=== PATIENT | female | born 1960 | race Caucasian/White ===

== ENCOUNTER → 2016-12-09 | Outpatient (CLI) | payer BC ==
[~2016-12-09] MED LIST: /PANT40TA OR; /PANT40TA PO; CIPR500T89 PO; DOXE100C OR; DRIS1CAP PO; FERR324T5 OR; FOLI1TAB OR; IBUP600T OR; KLON1TAB OR; NEUR100C OR; SIMV20TA2 OR; TUMS500C OR; TYLENOL #3 OR; ULTR50TA PO; VITAMIN D50000 UNT OR; ZOLO50TA OR; [UNRECOGNIZED DRUG - CODE] PO; [UNRECOGNIZED DRUG - OTHER] PO; ascorbic acid OR; klonopin PO; motrin PO; neurontin PO; trazadone PO
[2016-12-09 10:02] LABS: CREATININE FOR GFR 1.01 MG/DL (0.55-1.02); GLOMERULAR FILTRATION RATE 59.9 (>51); POTASSIUM SERUM 4.5 MEQ/L (3.5-5.1)
[2016-12-09 10:03] LABS: ALBUMIN/GLOBULIN RATIO 1.21 (1.00-1.93); BILIRUBIN,TOTAL 0.2 MG/DL (0.2-1.0); CALCIUM LEVEL 9.2 MG/DL (8.5-10.1); MAGNESIUM LEVEL 2.4 MG/DL (1.8-2.4); TOTAL PROTEIN 7.3 GM/DL (6.4-8.2)
== END ==
LOC: M WUC 08:02
PROVIDERS: ATTEND Nurse Practitioner Family
DX: E78.2 Mixed hyperlipidemia (principal); K21.9 Gastro-esophageal reflux disease without esophagitis; E55.9 Vitamin D deficiency, unspecified

== ENCOUNTER → 2016-12-23 | Outpatient (REF) | payer BC ==
[2016-12-23 17:30] LABS: FOLATE 7.7 NG/ML
[2016-12-23 17:34] LABS: CALCIUM LEVEL 9.2 MG/DL (8.5-10.1); CREATININE FOR GFR 1.09 MG/DL (0.55-1.02); FREE T4 1.15 NG/DL (0.76-1.46); GLOMERULAR FILTRATION RATE 54.9 (>51); POTASSIUM SERUM 4.1 MEQ/L (3.5-5.1)
[2016-12-23 18:07] LABS: BASO % 0.5 % (0.0-1.0); EOS # 0.1 K/mm3 (0.0-0.50); EOS % 1.3 % (0.0-3.0); LARGE UNSTAINED CELL # 0.2 K/mm3 (0.0-0.4); LYMPH # 2.3 K/mm3 (1.5-4.5); LYMPH % 29.5 % (24.0-44.0); MEAN CORPUSCULAR HEMOGLOBIN 30.1 pg (27.0-33.0); MEAN CORPUSCULAR HGB CONC 31.9 g/dl (32.0-36.5); MEAN CORPUSCULAR VOLUME 94.2 fl (80.0-96.0); MONO # 0.4 K/mm3 (0.0-0.8); MONO % 5.3 % (0.0-5.0); NEUTROPHILS # 4.7 K/mm3 (1.8-7.7); NEUTROPHILS % 61.4 % (36.0-66.0); PLATELET COUNT, AUTOMATED 174 k/mm3 (150-450); RED CELL DISTRIBUTION WIDTH 12.6 % (11.5-14.5); WHITE BLOOD COUNT 7.7 K/mm3 (4.0-10.0)
== END ==
LOC: M SFHCPLAZ 14:08
PROVIDERS: ATTEND Nurse Practitioner Family
DX: R53.83 Other fatigue (principal)

== ENCOUNTER → 2017-04-08 | Outpatient (REF) | payer BC ==
[2017-04-08 16:18] LABS: BASO % 0.3 % (0.0-1.0); EOS # 0.1 K/mm3 (0.0-0.50); EOS % 1.2 % (0.0-3.0); LARGE UNSTAINED CELL # 0.1 K/mm3 (0.0-0.4); LARGE UNSTAINED CELL % 1.9 % (0.0-4.0); LYMPH # 2.3 K/mm3 (1.5-4.5); LYMPH % 31.2 % (24.0-44.0); MEAN CORPUSCULAR HEMOGLOBIN 31.3 pg (27.0-33.0); MEAN CORPUSCULAR HGB CONC 33.3 g/dl (32.0-36.5); MEAN CORPUSCULAR VOLUME 93.9 fl (80.0-96.0); MONO # 0.3 K/mm3 (0.0-0.8); MONO % 4.2 % (0.0-5.0); NEUTROPHILS # 4.3 K/mm3 (1.8-7.7); NEUTROPHILS % 61.2 % (36.0-66.0); PLATELET COUNT, AUTOMATED 153 k/mm3 (150-450); RED CELL DISTRIBUTION WIDTH 13.7 % (11.5-14.5)
[2017-04-08 16:37] LABS: VITAMIN B12 LEVEL 477 PG/ML
[2017-04-08 16:38] LABS: ALBUMIN/GLOBULIN RATIO 1.21 (1.00-1.93); ALKALINE PHOSPHATASE 47 U/L (45-117); ALT/SGPT 21 U/L (12-78); ANION GAP 5 MEQ/L (8-16); AST/SGOT 13 U/L (15-37); BILIRUBIN,TOTAL 0.2 MG/DL (0.2-1.0); BLOOD UREA NITROGEN 11 MG/DL (7-18); CALCIUM LEVEL 8.5 MG/DL (8.5-10.1); CARBON DIOXIDE LEVEL 30 MEQ/L (21-32); CHLORIDE LEVEL 110 MEQ/L (98-107); CREATININE FOR GFR 0.86 MG/DL (0.55-1.02); FOLATE > 24.0 NG/ML; FREE T4 0.98 NG/DL (0.76-1.46); GLOMERULAR FILTRATION RATE > 60.0 (>51); GLUCOSE, FASTING 68 MG/DL (70-105); MAGNESIUM LEVEL 2.3 MG/DL (1.8-2.4); POTASSIUM SERUM 4.1 MEQ/L (3.5-5.1); SODIUM LEVEL 145 MEQ/L (136-145); TOTAL PROTEIN 7.3 GM/DL (6.4-8.2)
== END ==
LOC: M SFHCPLAZ 14:04
PROVIDERS: ATTEND Nurse Practitioner Family
DX: R40.0 Somnolence (principal); K21.9 Gastro-esophageal reflux disease without esophagitis; E55.9 Vitamin D deficiency, unspecified; K58.9 Irritable bowel syndrome, unspecified

== ENCOUNTER → 2017-06-22 | Outpatient (CLI) | payer BC ==
[~2017-06-22] MED LIST changes: +ASPI1TAB PO; +BACT800T5 PO; +CLON2TAB PO; +COLA100C5 PO; +GASTROGRAFIN SOLUTION 30ML (Q9963) As Ordered ONE; +HYDR50TA70 PO; +ISOVUE-370 76% 100ML VIAL (Q9967) As Ordered ONE; +MULT1TAB10 PO; +PANT40TA2 PO; +PERCOCET PO; +PRAV40TA2 PO; +SERT-138 PO; +TRAZ1TAB14 PO; +VITA1CAP40 PO
--- NOTE | 2017-06-23 03:06 | REP ---
Clinical: Abdominal pain. Technique: Axial contrast enhanced images from the lung bases to the pubic symphysis using oral and 100 ml Isovue 370 intravenous contrast material with precontrast images of the abdomen as well as coronal and sagittal re-formations. Comparison: 06/27/2016. Findings: Lung bases are clear. Visualized heart and pericardium are normal. Liver, spleen, pancreas, bilateral adrenal glands and kidneys are normal. The patient is status post cholecystectomy. The enteric system is without obstruction or acute inflammatory process. Subcentimeter fat containing periumbilical hernia noted. Pelvis demonstrates normal bladder and evidence for prior hysterectomy. Rectosigmoid appears normal. No ascites. No adenopathy. No mass lesion. No free air. Mild atherosclerotic changes of the aorta and vasculature noted without aneurysm. Surrounding musculoskeletal structures demonstrate age-related changes without focal osseous abnormality. Impression: No acute abdominopelvic pathology appreciated. Signed by Tyree Hernandez MD 06/23/2017 02:58 A
== END ==
LOC: M RAD 14:04
PROVIDERS: ATTEND Surgery
DX: R10.9 Unspecified abdominal pain (principal)
CPT/HCPCS: 74178; Q9963; Q9967

== ENCOUNTER → 2017-07-17 | Outpatient (CLI) | payer BC ==
[~2017-07-17] MED LIST changes: -GASTROGRAFIN SOLUTION 30ML (Q9963) As Ordered ONE; -ISOVUE-370 76% 100ML VIAL (Q9967) As Ordered ONE
--- NOTE | 2017-07-21 13:53 | SLEEPHOME ---
DATE OF STUDY: 07/17/2017 ORDERING PROVIDER: Yesy Matthews NP Diagnostic home sleep testing was performed due to concern for the obstructive sleep apnea syndrome. For testing, a NOX-T3 respiratory monitoring device was used. Continuous record was made of pulse, oxygen saturation, airflow, chest and abdominal strain, and body position. 10 hours and 59 minutes of data were reviewed. There were 6 hours and 17 minutes marked as time in bed. During the interval marked time in bed, there were 20 respiratory events identified of 10 seconds in duration or greater for a respiratory event index of 3.2. The events identified were primarily obstructive. The patient's baseline pulse rate was 61 beats per minute. Pulse rate ranged 51 to 84. Baseline saturation was 90%. Lowest oxygen saturation was 86%. Testing was performed in both the supine and nonsupine positions. Testing was terminated shortly after 4:00 a.m. for unclear reasons. IMPRESSION: Borderline home sleep test with repetitive respiratory events and oxygen desaturation to 86% with a respiratory event index of 3.2 is suggestive of the obstructive sleep apnea syndrome. RECOMMENDATION: Testing was stopped shortly after 4:00 a.m. and as a result these findings may under estimate the severity of the patient's disease. If symptoms are persisting, referral for in-laboratory nocturnal polysomnography would be a more sensitive means of uncovering apneic disease.
== END ==
LOC: M SLEEP HO 11:11
PROVIDERS: ATTEND Nurse Practitioner Adult Health
DX: G47.30 Sleep apnea, unspecified (principal)

== ENCOUNTER 2017-07-31 06:07 | Inpatient (IN) | payer BC ==
[~2017-07-31] VITALS: Ht 162.6 cm; Wt 61.7 kg
[2017-07-31] VITALS (8 sets, daily range): BP systolic 87–108; BP diastolic 49–55
[~2017-07-31 06:07] MED LIST changes: -BACT800T5 PO; -COLA100C5 PO; -PERCOCET PO
[2017-07-31] MEDS ORDERED: LIDOCAINE 1% MDV 20ML VIAL SC ONE (06:15)
[2017-07-31] MEDS ORDERED: ceFAZolin SOD 1 GM in D5W MINI-BAG PLUS 50 ML IV ONE (06:15)
[2017-07-31] MEDS ORDERED: LR 1,000 ML IV ONE (06:15)
[2017-07-31] MEDS ORDERED: SCOPOLAMINE 1.5 MG TRANSDERMAL TOP ONE (07:30)
[2017-07-31] MEDS ORDERED: CLON2TAB PO ×2 (07:38→07:40)
[2017-07-31] MEDS ORDERED: BUPIVACAINE HCL 0.25% 10 ML VIAL As Ordered ONE (08:05)
[2017-07-31] MEDS ORDERED: BUPIVACAINE/EPIN 0.25% 30 ML VIAL As Ordered ONE (08:05)
[2017-07-31] MEDS ORDERED: BUPIVACAINE LIPOSOME/PF 1.3% 20 ML VIAL (13.3MG/ML)(EXPAREL) As Ordered ONE (08:05)
[2017-07-31] MEDS ORDERED: fentaNYL 100 MCG/2 ML INJECTION (J3010) As Ordered ONE ×2 (08:06→08:55)
[2017-07-31] MEDS ORDERED: MIDAZOLAM INJ 2 MG/2 ML VIAL (J2250) As Ordered ONE (08:06)
[2017-07-31] MEDS ORDERED: PROPOFOL 200 MG/20 ML VIAL As Ordered ONE (08:44)
[2017-07-31] MEDS ORDERED: ONDANSETRON 4MG/2ML VIAL (J2405) As Ordered ONE (08:44)
[2017-07-31] MEDS ORDERED: LIDOCAINE 2% INJ 100 MG/5 ML SDV (FOR ANES.) As Ordered ONE (08:44)
[2017-07-31] MEDS ORDERED: KETOROLAC 60 MG/2 ML VIAL (J1885) As Ordered ONE (08:44)
[2017-07-31] MEDS ORDERED: dexameTHASONE 4 MG/ML 1ML VIAL (J1100) As Ordered ONE (08:44)
[2017-07-31] MEDS ORDERED: HYDROmorphone HCL 2 MG/ML 1ML VIAL (J1170) As Ordered ONE (08:55)
[2017-07-31] MEDS ORDERED: ePHEDrine SULFATE 25 MG/5 ML(5MG/ML) SYRINGE As Ordered ONE (09:06)
[2017-07-31] MEDS ORDERED: SUGAMMADEX SODIUM 500 MG/5 ML VIAL (BRIDION) As Ordered ONE (09:45)
[2017-07-31] MEDS ORDERED: NS 1,000 ML IV SCH (10:26)
[2017-07-31] MEDS ORDERED: PROMETHAZINE INJ 25 MG/ML VIAL (J2550) IV PRN (10:30)
[2017-07-31] MEDS ORDERED: METOCLOPRAMIDE INJ 10MG/2ML VIAL (J2765) IV PRN (10:30)
[2017-07-31] MEDS ORDERED: IPRATROPIUM 0.5MG/ALBUTEROL 2.5MG INH SOL UD 3ML (DUONEB)(J7620) NEB PRN (10:30)
[2017-07-31] MEDS ORDERED: diphenhydrAMINE INJ 50MG/ML VIAL (J1200) IV PRN (10:30)
[2017-07-31] MEDS ORDERED: ONDANSETRON 4MG/2ML VIAL (J2405) IV PRN ×3 (10:30→11:15)
[2017-07-31] MEDS ORDERED: MORPHINE 1MG/ML IN 0.9% NACL 100ML IV BAG IV PRN (10:30)
[2017-07-31] MEDS ORDERED: NALOXONE INJ 0.4 MG/1 ML VIAL (J2310) IV PRN (10:30)
[2017-07-31] MEDS ORDERED: NALBUPHINE HCL 10 MG/ML AMP (J2300) IV PRN (10:30)
[2017-07-31] MEDS ORDERED: EPIDURAL/PCA KEYS XX PRN (10:30)
[2017-07-31] MEDS ORDERED: LR 1,000 ML IV SCH (11:15)
[2017-07-31] MEDS ORDERED: fentaNYL 100 MCG/2 ML INJECTION (J3010) IV PRN (11:15)
[2017-07-31] MEDS ORDERED: PERCOCET 5MG/325MG TAB PO PRN (11:15)
[2017-07-31] MEDS: HYDROmorphone HCL 1 MG/ML SYRINGE (J1170) IV PRN ×5 (12:13→12:33)
[2017-07-31] MEDS: IPRATROPIUM 0.5MG/ALBUTEROL 2.5MG INH SOL UD 3ML (DUONEB)(J7620) NEB SCH ×2 (13:49→19:41)
[2017-07-31] MEDS: PANTOPRAZOLE 40MG INJ (PROTONIX) (C9113) IV SCH (14:11)
[2017-07-31] MEDS: NS 1,000 ML IV SCH ×2 (14:12→23:22)
[2017-07-31] MEDS: ceFAZolin SOD 1 GM in D5W MINI-BAG PLUS 50 ML IV SCH ×2 (15:58→23:52)
[2017-07-31] MEDS: SERTRALINE 100 MG TAB PO SCH (17:37)
[2017-07-31] MEDS: KETOROLAC 30 MG/ML VIAL (J1885) IV PRN (17:37)
[2017-07-31] MEDS: hydrOXYzine 50 MG TAB PO SCH ×2 (18:00→20:33)
[2017-07-31] MEDS: traZODone 50 MG TAB PO SCH (20:33)
[2017-08-01] VITALS: BP 93/51
[2017-08-01] MEDS: IPRATROPIUM 0.5MG/ALBUTEROL 2.5MG INH SOL UD 3ML (DUONEB)(J7620) NEB SCH ×4 (02:00→20:28)
[2017-08-01] MEDS: NS 1,000 ML IV SCH (02:26)
[2017-08-01] MEDS: KETOROLAC 30 MG/ML VIAL (J1885) IV PRN ×2 (03:11→13:17)
[2017-08-01 04:00] VITALS: BP 90/53
[2017-08-01] MEDS: hydrOXYzine 50 MG TAB PO SCH ×4 (06:58→21:02)
[2017-08-01 07:12] LABS: MEAN CORPUSCULAR HEMOGLOBIN 31.9 pg (27.0-33.0); MEAN CORPUSCULAR HGB CONC 32.5 g/dl (32.0-36.5); MEAN CORPUSCULAR VOLUME 98.3 fl (80.0-96.0); RED CELL DISTRIBUTION WIDTH 13.2 % (11.5-14.5); WHITE BLOOD COUNT 7.6 K/mm3 (4.0-10.0)
[2017-08-01 07:44] LABS: ANION GAP 6 MEQ/L (8-16); BLOOD UREA NITROGEN 9 MG/DL (7-18); CALCIUM LEVEL 7.2 MG/DL (8.5-10.1); CARBON DIOXIDE LEVEL 27 MEQ/L (21-32); CHLORIDE LEVEL 109 MEQ/L (98-107); CREATININE FOR GFR 0.61 MG/DL (0.55-1.02); GLOMERULAR FILTRATION RATE > 60.0 (>51); GLUCOSE, FASTING 103 MG/DL (70-105); POTASSIUM SERUM 3.6 MEQ/L (3.5-5.1); SODIUM LEVEL 142 MEQ/L (136-145)
[2017-08-01 08:00] VITALS: BP 94/55
[2017-08-01] MEDS: PANTOPRAZOLE 40MG INJ (PROTONIX) (C9113) IV SCH (08:21)
[2017-08-01] MEDS: ceFAZolin SOD 1 GM in D5W MINI-BAG PLUS 50 ML IV SCH ×2 (08:21→16:34)
[2017-08-01] MEDS: SERTRALINE 100 MG TAB PO SCH (08:21)
[2017-08-01] MEDS ORDERED: ACETAMINOPHEN TAB 650MG DOSE (2X325MG) PO ONE (09:15)
[2017-08-01 12:00] VITALS: BP 97/55
[2017-08-01 16:00] VITALS: BP 105/58
[2017-08-01 20:00] VITALS: BP 110/56
[2017-08-01] MEDS: traZODone 50 MG TAB PO SCH (21:00)
[2017-08-02] VITALS (7 sets, daily range): BP systolic 110–137; BP diastolic 50–72
[2017-08-02] MEDS: KETOROLAC 30 MG/ML VIAL (J1885) IV PRN ×2 (00:09→07:44)
[2017-08-02] MEDS: ceFAZolin SOD 1 GM in D5W MINI-BAG PLUS 50 ML IV SCH ×2 (00:14→07:45)
[2017-08-02] MEDS: IPRATROPIUM 0.5MG/ALBUTEROL 2.5MG INH SOL UD 3ML (DUONEB)(J7620) NEB SCH ×4 (01:17→20:10)
[2017-08-02] MEDS: hydrOXYzine 50 MG TAB PO SCH ×3 (05:58→15:14)
[2017-08-02 06:43] LABS: MEAN CORPUSCULAR HEMOGLOBIN 32.6 pg (27.0-33.0); MEAN CORPUSCULAR HGB CONC 34.5 g/dl (32.0-36.5); MEAN CORPUSCULAR VOLUME 94.4 fl (80.0-96.0); WHITE BLOOD COUNT 7.3 K/mm3 (4.0-10.0)
[2017-08-02 07:01] LABS: ANION GAP 5 MEQ/L (8-16); BLOOD UREA NITROGEN 5 MG/DL (7-18); CALCIUM LEVEL 8.2 MG/DL (8.5-10.1); CARBON DIOXIDE LEVEL 28 MEQ/L (21-32); CHLORIDE LEVEL 105 MEQ/L (98-107); GLOMERULAR FILTRATION RATE > 60.0 (>51); GLUCOSE, FASTING 119 MG/DL (70-105); POTASSIUM SERUM 3.5 MEQ/L (3.5-5.1); SODIUM LEVEL 138 MEQ/L (136-145)
[2017-08-02] MEDS: NS 1,000 ML IV SCH ×2 (07:45→11:42)
[2017-08-02] MEDS: SERTRALINE 100 MG TAB PO SCH (08:20)
[2017-08-02] MEDS: PANTOPRAZOLE 40MG TAB (PROTONIX) PO SCH (08:20)
[2017-08-02] MEDS ORDERED: ONDANSETRON 4 MG ORAL DISINTEGRATING TAB (S0181) PO PRN (15:45)
[2017-08-02] MEDS: PERCOCET 5MG/325MG TAB PO PRN ×2 (16:15→20:27)
[2017-08-02] MEDS: traZODone 50 MG TAB PO SCH (20:23)
--- NOTE | 2017-08-02 21:02 | IPN ---
DATE: 08/02/2017 SUBJECTIVE: The patient is now two days postoperative from a ventral incisional hernia repair using a component separation technique and mesh. She has had some sporadic low-grade temps with a temperature maximum (T-max) in the last 24 hours of 100.5. She is tolerating a regular diet well and reports flatus but no bowel movement. She is voiding without difficulty. Most recent vital signs at 1600 showed temperature of 100.2, pulse of 91, respirations 20, blood pressure 128/60 and a pulse oximetry of 95% on 2-1/2 liters of oxygen by nasal cannula. Intake and output from yesterday shows intake of 2800 with 1200 out with some unmeasured voids. The drain was 193 mL yesterday and 160 so far today. PHYSICAL EXAMINATION: The patient is alert and oriented. Heart exam shows a regular rhythm. The lungs show good bilateral breath sounds. The abdomen is flat. Her dressing is dry. The drain has some light serosanguineous fluid only. She does have bowel sounds present in all four quadrants and her abdomen is soft with no undue tenderness. LABORATORY DATA: Laboratory studies show white count of seven, hemoglobin nine, hematocrit 26 and platelet count of 105,000. Chemistry profile shows normal electrolytes with BUN five, creatinine 0.6 and a glucose of 119. IMPRESSION: Doing well postoperative day two from a ventral hernia repair with component separation. PLAN: The patient's intravenous (IV) infiltrated earlier today, so her patient-controlled analgesia (CONCILIATOR) was stopped and she was converted to oral analgesics with Percocet. She seems to be doing well with this. She is taking a diet well. She is having flatus but has not yet had a bowel movement. She was on Ancef which I presume was for prophylaxis only and I did not order an oral antibiotic after her IV infiltrated. She appears to be doing well overall, and I would anticipate that she will be ready for discharge in the next 1-2 days. MAIKOL
[2017-08-03] VITALS: BP 112/54
[2017-08-03] MEDS: PERCOCET 5MG/325MG TAB PO PRN ×2 (00:36→04:47)
[2017-08-03 04:00] VITALS: BP 119/56
[2017-08-03] MEDS: hydrOXYzine 50 MG TAB PO SCH ×2 (07:04)
[2017-08-03 07:33] LABS: MEAN CORPUSCULAR HEMOGLOBIN 31.3 pg (27.0-33.0); MEAN CORPUSCULAR HGB CONC 32.4 g/dl (32.0-36.5); MEAN CORPUSCULAR VOLUME 96.4 fl (80.0-96.0); WHITE BLOOD COUNT 5.1 K/mm3 (4.0-10.0)
[2017-08-03 08:00] VITALS: BP 108/61
[2017-08-03 08:12] LABS: ANION GAP 7 MEQ/L (8-16); BLOOD UREA NITROGEN 3 MG/DL (7-18); CALCIUM LEVEL 8.2 MG/DL (8.5-10.1); CARBON DIOXIDE LEVEL 29 MEQ/L (21-32); CHLORIDE LEVEL 109 MEQ/L (98-107); GLOMERULAR FILTRATION RATE > 60.0 (>51); GLUCOSE, FASTING 110 MG/DL (70-105); POTASSIUM SERUM 3.2 MEQ/L (3.5-5.1); SODIUM LEVEL 145 MEQ/L (136-145)
[2017-08-03] MEDS: IPRATROPIUM 0.5MG/ALBUTEROL 2.5MG INH SOL UD 3ML (DUONEB)(J7620) NEB SCH (08:27)
[2017-08-03] MEDS ORDERED: PERCOCET PO (08:51)
[2017-08-03] MEDS: PANTOPRAZOLE 40MG TAB (PROTONIX) PO SCH (09:27)
[2017-08-03] MEDS: SERTRALINE 100 MG TAB PO SCH (09:27)
--- NOTE | 2017-08-18 19:13 | DSES ---
DATE OF ADMISSION: 07/31/2017 DATE OF DISCHARGE: 08/03/2017 PRINCIPAL DIAGNOSIS: Incisional/ventral hernia (recurrent). ASSOCIATED DIAGNOSES: 1. History of hypercholesterolemia. 2. History of anxiety. 3. History of depression. 4. History of cholecystectomy. 5. History of lumpectomy. 6. History of total abdominal hysterectomy. 7. History of abdominal surgery on bowel in 2010. 8. History of hernia repair. 9. History of incisional hernia repair. MEDICATIONS: Include: Aspirin, clonazepam, dronabinol, hydroxyzine, pantoprazole, pravastatin, sertraline, trazodone, vitamin D3. BRIEF HISTORY OF PRESENT ILLNESS: The patient is a 57-year-old female who has had extensive operative surgery in the past, had a laparoscopic incisional hernia with a significant amount of diastasis of the abdominal wall and a very attenuated abdominal wall inferiorly, and developed a hernia inferior to the mesh who presents now for operative intervention. HOSPITAL COURSE SUMMARY: The patient was admitted with the above diagnosis, underwent an extensive operative intervention with a muscle advancement flaps/component separation and mesh repair for a large incisional hernia. She did extremely well considering the amount of operative intervention and eventually was discharged home on 08/03/2017, tolerating a diet, had good pain control with oral pain medications, had incisions which were clean, dry and healing without any erythema, drainage or discharge, although she did have a Andrea-Jackson drain in place that she has to come to the office to have the drain removed after discharge. MEDICATIONS AT THE TIME OF DISCHARGE: Include: Percocet 5/325 one by mouth every four hour as needed for pain . She was also to continue on her previous medications as described above.
--- NOTE | 2017-08-18 19:41 | RO ---
DATE OF PROCEDURE: 07/31/2017 PREOPERATIVE DIAGNOSIS: Incisional hernia. POSTOPERATIVE DIAGNOSIS: Incisional hernia. PROCEDURE: 1. Incisional hernia repair with ultra Pro mesh. 2. Component separation with muscle advancement flaps. SURGEON: Will Mcguire ANESTHESIA: General endotracheal anesthesia ESTIMATED BLOOD LOSS: Was minimal. FLUIDS: Crystalloid. BRIEF PROCEDURE SUMMARY: The patient was taken operating room was given general anesthesia. After adequate anesthesia was established, the patient was prepped and draped in sterile fashion. Next a midline incision was made with skin knife. Electrocautery was used cut through dermis, underlying subcutaneous tissue down to the fascia itself. It was obvious that the patient had some fascial defects present along the midline but it extended inferior to the umbilicus. The patient had had a previous laparoscopic mesh repair and had palpable mesh within the fascial wall and below with this there was a moderately large fascial defect and the fascial defect had pushed the mesh off the posterior peritoneum and had been lifting it off towards the intra-abdominal portion. In any case, the rest of the abdominal wall was quite diastatic at this area with attenuated fascia. The midline incision was made throughout this area all the way up taking down adhesions sharply with Metzenbaum scissors. Eventually a good mobilization of the fascia was performed and then multiple adhesions intra-abdominally were taken down with the cautery, mostly on the adipose tissue / omentum that was stuck in this area and abutting the fascia itself. Next the mesh which was partly avulsed inferiorly was able to be removed using electrocautery and I was able to take this off the fascia relatively easily inferiorly but then it was quite adherent anteriorly and laterally and thus some of the mesh was left in place given that was quite adherent to the fascia itself. This was performed on the left side as well as even on the right side of midline. Once the majority of the intra-abdominal mesh was resected. It was obvious that there was a relatively large fascial defect but mostly there was a attenuation of the anterior fascia given this attenuated fascia and the previous significant diastasis that the patient had previously I felt it was important to bring the rectus muscle and approximate it closer in the midline and thus at point dissection subcutaneously along the left side of the abdomen was performed down lateral to the rectus muscle and a component separation was performed with taking the external oblique along from superior all the way up to the inferior aspect of the ribs down to the suprapubic area laterally. Once this was for performed at least 3 cm plus of mobilization of the rectus muscle medial was performed. This allowed the midline to come together quite nicely at this time and I did not feel that performing a component separation of the right-hand side was necessary the midline was able to be approximated nicely with running looped O PDS and I imbricated the fascia, tightening up the midline taking the suture from the rectus muscle on the right-hand side to the rectus muscle on the left-hand side imbricating some of the fascia in the midline as well. Starting superiorly as well and brought another looped O PDS inferiorly and tied in the middle. Then a Ultra pro mesh was cut to the appropriate size and after a big subcutaneous pocket had been created throughout this area. This was copiously irrigated until clear. Cautery was used to provide hemostasis and once good hemostasis was achieved the mesh was tacked in with a secure strap. #19 Andrea-Jackson drain was left in bed of the dissection and brought out through a lateral stab incision #2-0 Vicryl was used to approximate the subcutaneous tissue and tarun were used to approximate the skin and dry sterile dressing was applied and the patient was awakened, extubated, brought to recovery room awake, alert and hemodynamically stable. Sponge and needle counts correct times two.
== END 2017-08-03 10:55 | disposition home or self-care (01) | DRG 227 ==
LOC: M SDC 06:07 → EDSTATUS 07:30 → M PED 12:55 → M SDC 12:59 → M PED 13:00
PROVIDERS: ADMIT Surgery; ATTEND Surgery
PROC: 0WBF0ZZ Excision of Abdominal Wall, Open Approach (ICD-10-PCS; 2017-07-31)
PROC: 0WQF0ZZ Repair Abdominal Wall, Open Approach (ICD-10-PCS; 2017-07-31)
PROC: 0WUF0JZ Supplement Abdominal Wall with Synthetic Substitute, Open Approach (ICD-10-PCS; principal; 2017-07-31 07:30)
DX: K43.2 Incisional hernia without obstruction or gangrene (principal); F17.210 Nicotine dependence, cigarettes, uncomplicated; M62.08 Separation of muscle (nontraumatic), other site

== ENCOUNTER 2017-08-12 12:22 | Emergency (ER) | payer BC ==
[~2017-08-12] VITALS: Ht 162.6 cm; Wt 61.8 kg
[~2017-08-12 12:22] MED LIST changes: +PERCOCET PO
[2017-08-12] MEDS ORDERED: COLA100C5 PO (12:36)
[2017-08-12] MEDS ORDERED: NS 1,000 ML IV SCH (12:55)
[2017-08-12] MEDS ORDERED: MORPHINE 2 MG/ML 1ML SYRINGE IV PRN (13:00)
[2017-08-12] MEDS ORDERED: ONDANSETRON 4MG/2ML VIAL (J2405) IV ONE (13:00)
[2017-08-12] MEDS ORDERED: NS 500 ML IV ONE (13:00)
[2017-08-12] MEDS ORDERED: GASTROGRAFIN SOLUTION 30ML PO ONE (13:20)
[2017-08-12 13:44] LABS: BASO % 0.5 % (0.0-1.0); EOS # 0.6 K/mm3 (0.0-0.50); EOS % 8.3 % (0.0-3.0); LARGE UNSTAINED CELL # 0.1 K/mm3 (0.0-0.4); LARGE UNSTAINED CELL % 1.6 % (0.0-4.0); LYMPH # 1.6 K/mm3 (1.5-4.5); MEAN CORPUSCULAR VOLUME 92.2 fl (80.0-96.0); MONO # 0.3 K/mm3 (0.0-0.8); MONO % 3.5 % (0.0-5.0); NEUTROPHILS % 65.1 % (36.0-66.0); PLATELET COUNT, AUTOMATED 298 k/mm3 (150-450); RED CELL DISTRIBUTION WIDTH 13.1 % (11.5-14.5); WHITE BLOOD COUNT 7.6 K/mm3 (4.0-10.0)
[2017-08-12 13:50] LABS: MEAN CORPUSCULAR HGB CONC 32.9 g/dl (32.0-36.5)
[2017-08-12] MEDS ORDERED: GASTROGRAFIN SOLUTION 30ML (Q9963) PO ONE (13:50)
[2017-08-12 13:53] LABS: ALKALINE PHOSPHATASE 56 U/L (45-117); ALT/SGPT 23 U/L (12-78); ANION GAP 4 MEQ/L (8-16); AST/SGOT 18 U/L (15-37); BILIRUBIN,TOTAL 0.2 MG/DL (0.2-1.0); BLOOD UREA NITROGEN 11 MG/DL (7-18); CALCIUM LEVEL 8.7 MG/DL (8.5-10.1); CARBON DIOXIDE LEVEL 29 MEQ/L (21-32); CHLORIDE LEVEL 107 MEQ/L (98-107); CREATININE FOR GFR 0.84 MG/DL (0.55-1.02); GLOMERULAR FILTRATION RATE > 60.0 (>51); GLUCOSE, FASTING 93 MG/DL (70-105); POTASSIUM SERUM 4.1 MEQ/L (3.5-5.1); SODIUM LEVEL 140 MEQ/L (136-145); TOTAL PROTEIN 7.5 GM/DL (6.4-8.2)
[2017-08-12 13:54] LABS: ALBUMIN 3.2 GM/DL (3.2-5.2); ALBUMIN/GLOBULIN RATIO 0.74 (1.00-1.93)
[2017-08-12 14:01] LABS: INR 0.99
--- NOTE | 2017-08-12 14:31 | REP ---
CHEST, TWO VIEWS: Comparison 12/19/2105. There is no evidence of acute infiltrate. No pleural effusion is seen. The heart is normal in size. The mediastinal silhouette is unremarkable. The visualized osseous structures are intact. IMPRESSION: No acute pulmonary disease. Signed by Simeon Gama MD 08/13/2017 05:32 P
[2017-08-12] MEDS ORDERED: ISOVUE-370 76% 100ML VIAL (Q9967) As Ordered ONE (15:17)
--- NOTE | 2017-08-12 16:38 | REP ---
CT ABDOMEN AND PELVIS WITH IV AND ORAL CONTRAST: TECHNIQUE: Axial contrast enhanced images from the lung bases to the pubic symphysis using 100 mL Isovue 370 intravenous contrast material with multiplanar reformations. COMPARISON: 06/22/2017 Patient has had recent repair of an incisional anterior abdominal hernia. In the visualized lung bases there are tiny effusions bilaterally. There is mild left basilar atelectasis/infiltrate. There is a tiny cyst in the posterior right lobe of the liver. Patient has had a prior cholecystectomy. The spleen, adrenals, pancreas and kidneys are unremarkable. There is no abdominal aortic aneurysm with scattered atherosclerotic calcifications. There is no adenopathy or free air. Irregularity of the midline of the anterior abdominal wall was noted status-post incisional hernia repair. There is an area of fluid lying along the anterior abdominal wall musculature at the level of the pelvis which measures approximately 8.7 x 1.6 x 7.2 cm. There is no bowel wall thickening. There is mild free fluid in the pelvis. No pelvic mass is seen. Urinary bladder us grossly unremarkable. IMPRESSION: Patient has had a recent surgical repair of incisional hernia in the anterior abdominal wall. There is irregularity of the anterior abdominal wall in the midline. There is an area of fluid along the anterior surface of the abdominal wall musculature at the level of the pelvis measuring 8.7 x 1.6 x 7.2 cm. Tiny pleural effusions. Minor left lower lobe atelectasis/infiltrate. Mild free fluid in the pelvis. No free air in the abdomen or pelvis. Signed by Simeon Gama MD 08/13/2017 05:35 P
[2017-08-12 16:56] VITALS: BP 101/57
== END 2017-08-12 16:58 | disposition home or self-care (01) ==
LOC: M ED 12:22
DX: R18.8 Other ascites (principal); Z72.0 Tobacco use
CPT/HCPCS: 71020; 74177; 80048; 80076; 81001; 83605; 83690; 85025; 85610; 85730; 86850; 86900; 86901; 87040; 93041; 96374; 96375; 99284; J2405; Q9963; Q9967

== ENCOUNTER → 2017-08-21 | Outpatient (CLI) | payer BC ==
[~2017-08-21] MED LIST changes: +BACT800T5 PO; +COLA100C5 PO
[2017-08-21 13:17] LABS: MEAN CORPUSCULAR HEMOGLOBIN 30.5 pg (27.0-33.0); MEAN CORPUSCULAR HGB CONC 31.9 g/dl (32.0-36.5); MEAN CORPUSCULAR VOLUME 95.4 fl (80.0-96.0); RED CELL DISTRIBUTION WIDTH 13.6 % (11.5-14.5)
== END ==
LOC: M WUC 08:53
PROVIDERS: ATTEND Surgery
DX: K43.2 Incisional hernia without obstruction or gangrene (principal)

== ENCOUNTER → 2017-08-21 | Outpatient (CLI) | payer BC ==
[2017-08-21 13:35] LABS: ALKALINE PHOSPHATASE 50 U/L (45-117); ALT/SGPT 21 U/L (12-78); ANION GAP 5 MEQ/L (8-16); AST/SGOT 15 U/L (15-37); BILIRUBIN,TOTAL 0.2 MG/DL (0.2-1.0); BLOOD UREA NITROGEN 13 MG/DL (7-18); CALCIUM LEVEL 8.9 MG/DL (8.5-10.1); CARBON DIOXIDE LEVEL 29 MEQ/L (21-32); CHLORIDE LEVEL 108 MEQ/L (98-107); CHOLESTEROL LEVEL 173 MG/DL (<200); CREATININE FOR GFR 0.84 MG/DL (0.55-1.02); GLOMERULAR FILTRATION RATE > 60.0 (>51); GLUCOSE, FASTING 108 MG/DL (70-105); POTASSIUM SERUM 4.5 MEQ/L (3.5-5.1); SODIUM LEVEL 142 MEQ/L (136-145); TRIGLYCERIDES LEVEL 187 MG/DL (<150)
[2017-08-21 13:36] LABS: ALBUMIN 3.6 GM/DL (3.2-5.2); ALBUMIN/GLOBULIN RATIO 0.97 (1.00-1.93); TOTAL PROTEIN 7.3 GM/DL (6.4-8.2)
[2017-08-21 13:37] LABS: FOLATE 22.3 NG/ML; VITAMIN B12 LEVEL 630 PG/ML
== END ==
LOC: M WUC 08:50
PROVIDERS: ATTEND Nurse Practitioner Family
DX: E78.2 Mixed hyperlipidemia (principal)

== ENCOUNTER 2017-09-14 16:54 | Emergency (ER) | payer BC ==
[~2017-09-14] VITALS: Ht 162.6 cm; Wt 60.9 kg
[~2017-09-14 16:54] MED LIST changes: -BACT800T5 PO
[2017-09-14 19:04] LABS: BASO % 0.3 % (0.0-1.0); EOS # 0.2 10^3/uL (0.0-0.50); EOS % 2.8 % (0.0-3.0); IMMATURE GRANULOCYTE % 0.3 % (0-0); LYMPH # 2.6 10^3/uL (1.5-4.5); LYMPH % 34.3 % (24.0-44.0); MEAN CORPUSCULAR HEMOGLOBIN 30.6 pg (27.0-33.0); MEAN CORPUSCULAR HGB CONC 32.9 g/dl (32.0-36.5); MONO # 0.5 10^3/uL (0.0-0.8); MONO % 6.2 % (0.0-5.0); NEUTROPHILS # 4.3 10^3/uL (1.8-7.7); NEUTROPHILS % 56.1 % (36.0-66.0); PLATELET COUNT, AUTOMATED 173 10^3/uL (150-450); RED CELL DISTRIBUTION WIDTH 13.2 % (11.5-14.5); WHITE BLOOD COUNT 7.6 10^3/uL (4.0-10.0)
[2017-09-14] MEDS ORDERED: GASTROGRAFIN SOLUTION 30ML PO ONE (19:30)
[2017-09-14 19:38] LABS: ALBUMIN 4.1 GM/DL (3.2-5.2); ALBUMIN/GLOBULIN RATIO 1.11 (1.00-1.93); ALKALINE PHOSPHATASE 57 U/L (45-117); ALT/SGPT 19 U/L (12-78); ANION GAP 5 MEQ/L (8-16); AST/SGOT 13 U/L (15-37); BILIRUBIN,TOTAL 0.3 MG/DL (0.2-1.0); BLOOD UREA NITROGEN 10 MG/DL (7-18); CALCIUM LEVEL 9.1 MG/DL (8.5-10.1); CARBON DIOXIDE LEVEL 29 MEQ/L (21-32); CHLORIDE LEVEL 106 MEQ/L (98-107); CREATININE FOR GFR 0.79 MG/DL (0.55-1.02); GLOMERULAR FILTRATION RATE > 60.0 (>51); GLUCOSE, FASTING 86 MG/DL (70-105); SODIUM LEVEL 140 MEQ/L (136-145); TOTAL PROTEIN 7.8 GM/DL (6.4-8.2)
[2017-09-14] MEDS ORDERED: GASTROGRAFIN SOLUTION 30ML (Q9963) PO ONE (20:00)
[2017-09-14] MEDS ORDERED: ISOVUE-370 76% 100ML VIAL (Q9967) As Ordered ONE (20:55)
--- NOTE | 2017-09-14 21:40 | REPUSA ---
CT of the abdomen and pelvis with contrast Clinical statement: Pain. Technique: Multiple axial CT images were obtained from the base of the lungs through the floor of the pelvis utilizing 5 mm axial slices after administration of oral and nonionic intravenous contrast. C oronal and sagittal reconstructions were also obtained. Comparison: 08/12/2017. Findings: Chest: The visualized lung bases are clear. Abdomen: The liver, spleen, pancreas, kidneys, and adrenal glands are unremarkable. The aorta is with in normal limits. There is no evidence of abdominal lymphadenopathy or ascites. Postsurgical changes are seen in the anterior abdominal wall. Pelvis: The bowel is unremarkable, with no obstructive or inflammatory changes. The urinary bladder i s within normal limits. The other pelvic structures appear grossly intact. There is no evidence of pe lvic lymphadenopathy or ascites. Bones: There are no suspicious osseous abnormalities seen. Impression: Unremarkable CT examination of the abdomen and pelvis.
[2017-09-14] MEDS ORDERED: BACT800T5 PO (21:51)
[2017-09-14 22:21] VITALS: BP 129/62
== END 2017-09-14 22:23 | disposition home or self-care (01) ==
LOC: M ED 16:54
DX: G89.18 Other acute postprocedural pain (principal)
CPT/HCPCS: 74177; 80053; 85025; 99284; Q9963; Q9967

== ENCOUNTER → 2017-12-18 | Outpatient (CLI) | payer BC | LOC: M RAD 08:12 | DX: Z12.31 Encounter for screening mammogram for malignant neoplasm of breast (principal) | CPT/HCPCS: 77067 ==

== ENCOUNTER → 2018-01-12 | Outpatient (CLI) | payer BC ==
[2018-01-12 09:25] LABS: BASO % 0.3 % (0.0-1.0); EOS # 0.2 10^3/uL (0.0-0.50); HEMATOCRIT 38.2 % (36.0-47.0); HEMOGLOBIN 12.5 g/dl (12.0-16.0); IMMATURE GRANULOCYTE % 0.2 % (0-3.0); LYMPH # 1.8 10^3/uL (1.5-4.5); MEAN CORPUSCULAR HEMOGLOBIN 30.9 pg (27.0-33.0); MEAN CORPUSCULAR HGB CONC 32.7 g/dl (32.0-36.5); MEAN CORPUSCULAR VOLUME 94.3 fl (80.0-96.0); MONO # 0.4 10^3/uL (0.0-0.8); MONO % 6.3 % (0.0-5.0); NEUTROPHILS # 3.7 10^3/uL (1.8-7.7); NEUTROPHILS % 60.2 % (36.0-66.0); PLATELET COUNT, AUTOMATED 142 10^3/uL (150-450); RED BLOOD COUNT 4.05 10^6/uL (4.00-5.40); RED CELL DISTRIBUTION WIDTH 13.8 % (11.5-14.5); WHITE BLOOD COUNT 6.1 10^3/uL (4.0-10.0)
[2018-01-12 09:47] LABS: ALBUMIN 4.1 GM/DL (3.2-5.2); ALBUMIN/GLOBULIN RATIO 1.08 (1.00-1.93); ALKALINE PHOSPHATASE 53 U/L (45-117); ALT/SGPT 20 U/L (12-78); ANION GAP 4 MEQ/L (8-16); AST/SGOT 17 U/L (7-37); BILIRUBIN,TOTAL 0.2 MG/DL (0.2-1.0); BLOOD UREA NITROGEN 11 MG/DL (7-18); CALCIUM LEVEL 8.9 MG/DL (8.5-10.1); CARBON DIOXIDE LEVEL 30 MEQ/L (21-32); CHLORIDE LEVEL 108 MEQ/L (98-107); CREATININE FOR GFR 0.92 MG/DL (0.55-1.30); FERRITIN 61 NG/ML (8-252); GLOMERULAR FILTRATION RATE > 60.0 (>51); GLUCOSE, FASTING 100 MG/DL (70-100); POTASSIUM SERUM 4.2 MEQ/L (3.5-5.1); SODIUM LEVEL 142 MEQ/L (136-145); TOTAL PROTEIN 7.9 GM/DL (6.4-8.2)
[2018-01-12 10:10] LABS: FOLATE > 24.0 NG/ML; TOTAL 25(OH) VITAMIN D 27.9 NG/ML (30.0-100.0); VITAMIN B12 LEVEL 565 PG/ML
== END ==
LOC: M WUC 08:14
DX: R53.83 Other fatigue (principal)
CPT/HCPCS: 82746

== ENCOUNTER → 2018-07-01 | Outpatient (CLI) | payer BC ==
[2018-07-01 09:46] LABS: ALBUMIN/GLOBULIN RATIO 1.11 (1.00-1.93); ALKALINE PHOSPHATASE 51 U/L (45-117); ALT/SGPT 20 U/L (12-78); ANION GAP 7 MEQ/L (8-16); AST/SGOT 15 U/L (7-37); BILIRUBIN,TOTAL 0.3 MG/DL (0.2-1.0); BLOOD UREA NITROGEN 15 MG/DL (7-18); CALCIUM LEVEL 8.9 MG/DL (8.8-10.2); CARBON DIOXIDE LEVEL 29 MEQ/L (21-32); CHLORIDE LEVEL 108 MEQ/L (98-107); CHOLESTEROL LEVEL 178 MG/DL (<200); CHOLESTEROL RISK RATIO 3.787 (<5); CREATININE FOR GFR 0.97 MG/DL (0.55-1.30); GLOMERULAR FILTRATION RATE > 60.0 (>45); GLUCOSE, FASTING 104 MG/DL (70-100); HDL CHOLESTEROL 47 MG/DL (>40); LDL CHOLESTEROL 91.4 MG/DL (<100); NON-HDL-C 131 MG/DL; SODIUM LEVEL 144 MEQ/L (136-145); TOTAL PROTEIN 7.6 GM/DL (6.4-8.2); TRIGLYCERIDES LEVEL 198 MG/DL (<150)
[2018-07-01 09:47] LABS: TOTAL 25(OH) VITAMIN D 29.2 NG/ML (30.0-100.0)
== END ==
LOC: M WUC 08:04
DX: E78.2 Mixed hyperlipidemia (principal); E55.9 Vitamin D deficiency, unspecified
CPT/HCPCS: 80053

== ENCOUNTER 2018-08-02 08:30 | Emergency (ER) | payer BC ==
[2018-08-02] MEDS: LORazepam 2 MG/ML VIAL (J2060) IV (08:56)
[2018-08-02] MEDS: KETOROLAC 30 MG/ML VIAL (J1885) IV (09:00)
[2018-08-02 09:14] LABS: BASO % 0.3 % (0.0-1.0); EOS % 0.5 % (0.0-3.0); HEMATOCRIT 37.6 % (36.0-47.0); HEMOGLOBIN 12.5 g/dl (12.0-15.5); IMMATURE GRANULOCYTE % 0.3 % (0-3.0); LYMPH # 1.2 10^3/uL (1.5-4.5); LYMPH % 15.8 % (24.0-44.0); MEAN CORPUSCULAR HEMOGLOBIN 31.4 pg (27.0-33.0); MEAN CORPUSCULAR HGB CONC 33.2 g/dl (32.0-36.5); MEAN CORPUSCULAR VOLUME 94.5 fl (80.0-96.0); MONO # 0.5 10^3/uL (0.0-0.8); MONO % 6.3 % (0.0-5.0); NEUTROPHILS # 5.8 10^3/uL (1.8-7.7); NEUTROPHILS % 76.8 % (36.0-66.0); PLATELET COUNT, AUTOMATED 148 10^3/uL (150-450); RED BLOOD COUNT 3.98 10^6/uL (4.00-5.40); RED CELL DISTRIBUTION WIDTH 12.9 % (11.5-14.5); WHITE BLOOD COUNT 7.5 10^3/uL (4.0-10.0)
[2018-08-02 09:26] LABS: POTASSIUM SERUM 3.7 MEQ/L (3.5-5.1); SODIUM LEVEL 142 MEQ/L (136-145)
[2018-08-02 10:41] LABS: BLOOD UREA NITROGEN 10 MG/DL (7-18); CALCIUM LEVEL 8.8 MG/DL (8.8-10.2); CPK CREATINE PHOSPHOKINASE 77 U/L (26-192); CREATININE FOR GFR 0.89 MG/DL (0.55-1.30); GLUCOSE, FASTING 101 MG/DL (70-100)
[2018-08-02 10:58] LABS: CK-MB VALUE MASS < 1.0 NG/ML (<3.6); MB/CK RELATIVE INDEX 1.29 (< OR =4); TROPONIN I < 0.02 NG/ML (< 0.10)
[2018-08-02 11:18] LABS: ANION GAP 5 MEQ/L (8-16); CARBON DIOXIDE LEVEL 27 MEQ/L (21-32); CHLORIDE LEVEL 110 MEQ/L (98-107)
== END 2018-08-02 11:36 | disposition home or self-care (01) ==
LOC: M ED 08:30
DX: R51 Headache (principal); F41.9 Anxiety disorder, unspecified; F17.200 Nicotine dependence, unspecified, uncomplicated
CPT/HCPCS: J1885

== ENCOUNTER 2018-08-03 12:27 | Emergency (ER) | payer BC ==
[2018-08-03] MEDS: diphenhydrAMINE INJ 50MG/ML VIAL (J1200) IV (12:45)
[2018-08-03 13:30] LABS: BASO % 0.2 % (0.0-1.0); EOS % 0.2 % (0.0-3.0); HEMATOCRIT 35.4 % (36.0-47.0); HEMOGLOBIN 11.8 g/dl (12.0-15.5); IMMATURE GRANULOCYTE % 0.4 % (0-3.0); LYMPH # 1.5 10^3/uL (1.5-4.5); LYMPH % 15.1 % (24.0-44.0); MEAN CORPUSCULAR HEMOGLOBIN 31.5 pg (27.0-33.0); MEAN CORPUSCULAR HGB CONC 33.3 g/dl (32.0-36.5); MEAN CORPUSCULAR VOLUME 94.4 fl (80.0-96.0); MONO # 0.4 10^3/uL (0.0-0.8); MONO % 4.5 % (0.0-5.0); NEUTROPHILS # 7.7 10^3/uL (1.8-7.7); NEUTROPHILS % 79.6 % (36.0-66.0); PLATELET COUNT, AUTOMATED 162 10^3/uL (150-450); RED BLOOD COUNT 3.75 10^6/uL (4.00-5.40); RED CELL DISTRIBUTION WIDTH 12.7 % (11.5-14.5); WHITE BLOOD COUNT 9.7 10^3/uL (4.0-10.0)
[2018-08-03] MEDS: KETOROLAC 30 MG/ML VIAL (J1885) IV (13:34)
[2018-08-03] MEDS: NS 1,000 ML IV (13:35)
[2018-08-03] MEDS: METOCLOPRAMIDE INJ 10MG/2ML VIAL (J2765) IV (13:35)
[2018-08-03 14:16] LABS: ACETAMINOPHEN LEVEL < 2.0 UG/ML (10.0-30.0); ANION GAP 4 MEQ/L (8-16); BLOOD UREA NITROGEN 8 MG/DL (7-18); CALCIUM LEVEL 8.8 MG/DL (8.8-10.2); CARBON DIOXIDE LEVEL 30 MEQ/L (21-32); CHLORIDE LEVEL 104 MEQ/L (98-107); CREATININE FOR GFR 0.83 MG/DL (0.55-1.30); GLOMERULAR FILTRATION RATE > 60.0 (>45); GLUCOSE, FASTING 106 MG/DL (70-100); POTASSIUM SERUM 4.2 MEQ/L (3.5-5.1); SALICYLATE LEVEL 4.1 MG/DL (5.0-30.0); SODIUM LEVEL 138 MEQ/L (136-145)
[2018-08-03 15:31] LABS: ERYTHROCYTE SEDIMENTATION RATE 25 mm/hr (0-30)
== END 2018-08-03 22:40 | disposition home or self-care (01) ==
LOC: M ED 12:27
DX: R51 Headache (principal); I72.0 Aneurysm of carotid artery; K92.0 Hematemesis; R20.0 Anesthesia of skin; G43.909 Migraine, unspecified, not intractable, without status migrainosus; I51.9 Heart disease, unspecified; F17.200 Nicotine dependence, unspecified, uncomplicated; Z79.899 Other long term (current) drug therapy; Z79.82 Long term (current) use of aspirin
CPT/HCPCS: J1200

== ENCOUNTER 2018-08-05 11:21 | Inpatient (IN) | payer BC ==
[2018-08-05] MEDS: diphenhydrAMINE INJ 50MG/ML VIAL (J1200) IV (12:40)
[2018-08-05 12:46] LABS: BASO % 0.3 % (0.0-1.0); EOS # 0.1 10^3/uL (0.0-0.50); EOS % 0.6 % (0.0-3.0); HEMATOCRIT 34.4 % (36.0-47.0); HEMOGLOBIN 11.5 g/dl (12.0-15.5); IMMATURE GRANULOCYTE % 0.1 % (0-3.0); LYMPH # 1.8 10^3/uL (1.5-4.5); LYMPH % 23.3 % (24.0-44.0); MEAN CORPUSCULAR HEMOGLOBIN 31.6 pg (27.0-33.0); MEAN CORPUSCULAR HGB CONC 33.4 g/dl (32.0-36.5); MEAN CORPUSCULAR VOLUME 94.5 fl (80.0-96.0); MONO # 0.5 10^3/uL (0.0-0.8); MONO % 6.1 % (0.0-5.0); NEUTROPHILS # 5.4 10^3/uL (1.8-7.7); NEUTROPHILS % 69.6 % (36.0-66.0); PLATELET COUNT, AUTOMATED 158 10^3/uL (150-450); RED BLOOD COUNT 3.64 10^6/uL (4.00-5.40); RED CELL DISTRIBUTION WIDTH 12.8 % (11.5-14.5); WHITE BLOOD COUNT 7.7 10^3/uL (4.0-10.0)
[2018-08-05 12:53] LABS: AMORPHOUS SEDIMENT RFX SMALL (NEGATIVE); KETONE, URINE AUTO RFX NEGATIVE (NEGATIVE); LEUKOCYTE ESTERASE UR AUTO RFX NEGATIVE (NEGATIVE); MUCUS, URINE RFX SMALL (NEGATIVE); NITRITE, URINE AUTO RFX NEGATIVE (NEGATIVE); RBC, URINE AUTO RFX 3 /HPF (0-3); SPECIFIC GRAVITY UR AUTO RFX 1.004 (1.002-1.035); SQUAM EPITHELIAL CELL UR AURFX 1 /HPF (0-6); WBC, URINE AUTO RFX 1 /HPF (0-3)
[2018-08-05 13:07] LABS: ALBUMIN 4.1 GM/DL (3.2-5.2); ALBUMIN/GLOBULIN RATIO 1.14 (1.00-1.93); ALKALINE PHOSPHATASE 47 U/L (45-117); ALT/SGPT 23 U/L (12-78); ANION GAP 8 MEQ/L (8-16); AST/SGOT 20 U/L (7-37); BILIRUBIN,DIRECT < 0.1 MG/DL (0.0-0.2); BILIRUBIN,TOTAL 0.4 MG/DL (0.2-1.0); BLOOD UREA NITROGEN 6 MG/DL (7-18); CALCIUM LEVEL 8.8 MG/DL (8.8-10.2); CARBON DIOXIDE LEVEL 25 MEQ/L (21-32); CHLORIDE LEVEL 107 MEQ/L (98-107); CREATININE FOR GFR 0.94 MG/DL (0.55-1.30); GLOMERULAR FILTRATION RATE > 60.0 (>45); GLUCOSE, FASTING 142 MG/DL (70-100); POTASSIUM SERUM 3.6 MEQ/L (3.5-5.1); SODIUM LEVEL 140 MEQ/L (136-145); TOTAL PROTEIN 7.7 GM/DL (6.4-8.2)
[2018-08-05 13:24] LABS: AMPHETAMINES LEVEL URINE NEGATIVE (NEGATIVE); BARBITURATES URINE NEGATIVE (NEGATIVE); BENZODIAZEPINES URINE NEGATIVE (NEGATIVE); CANNABINOIDS URINE NEGATIVE (NEGATIVE); COCAINE METABOLITE URINE NEGATIVE (NEGATIVE); METHADONE URINE NEGATIVE (NEGATIVE); OPIATES URINE NEGATIVE (NEGATIVE); PHENCYCLIDINE URINE NEGATIVE (NEGATIVE)
[2018-08-05] MEDS: KETOROLAC 30 MG/ML VIAL (J1885) IV (13:40)
[2018-08-05] MEDS: ACETAMINOPHEN TAB 650MG DOSE (2X325MG) PO (13:45)
[2018-08-05] MEDS ORDERED: PERCOCET 5MG/325MG TAB PO (16:00)
[2018-08-05] MEDS: PRAVASTATIN 20 MG TAB PO (20:04)
[2018-08-05] MEDS: SENOKOT S TAB PO (20:05)
[2018-08-05] MEDS: PANTOPRAZOLE 40MG TAB (PROTONIX) PO (20:05)
[2018-08-05] MEDS: traZODone 100 MG TAB PO (20:05)
[2018-08-05] MEDS: clonazePAM 1 MG TAB PO (20:05)
[2018-08-05] MEDS ORDERED: NICOTINE 14 MG/24 HR TRANSDERMAL TD (20:45)
[2018-08-05] MEDS: HEPARIN SOD (PORCINE) 5000 UNITS/ML VIAL SC (21:14)
[2018-08-06] MEDS: ACETAMINOPHEN TAB 650MG DOSE (2X325MG) PO (03:54)
[2018-08-06] MEDS: HEPARIN SOD (PORCINE) 5000 UNITS/ML VIAL SC (05:40)
[2018-08-06 05:47] LABS: HEMATOCRIT 33.2 % (36.0-47.0); HEMOGLOBIN 10.8 g/dl (12.0-15.5); MEAN CORPUSCULAR HEMOGLOBIN 30.6 pg (27.0-33.0); MEAN CORPUSCULAR HGB CONC 32.5 g/dl (32.0-36.5); MEAN CORPUSCULAR VOLUME 94.1 fl (80.0-96.0); PLATELET COUNT, AUTOMATED 142 10^3/uL (150-450); RED BLOOD COUNT 3.53 10^6/uL (4.00-5.40); RED CELL DISTRIBUTION WIDTH 12.8 % (11.5-14.5); WHITE BLOOD COUNT 7.3 10^3/uL (4.0-10.0)
[2018-08-06 06:16] LABS: ALBUMIN 3.7 GM/DL (3.2-5.2); ALBUMIN/GLOBULIN RATIO 1.16 (1.00-1.93); ALKALINE PHOSPHATASE 42 U/L (45-117); ALT/SGPT 18 U/L (12-78); ANION GAP 5 MEQ/L (8-16); AST/SGOT 15 U/L (7-37); BILIRUBIN,TOTAL 0.3 MG/DL (0.2-1.0); BLOOD UREA NITROGEN 11 MG/DL (7-18); CALCIUM LEVEL 8.5 MG/DL (8.8-10.2); CARBON DIOXIDE LEVEL 29 MEQ/L (21-32); CHLORIDE LEVEL 109 MEQ/L (98-107); CREATININE FOR GFR 0.89 MG/DL (0.55-1.30); GLOMERULAR FILTRATION RATE > 60.0 (>45); GLUCOSE, FASTING 105 MG/DL (70-100); POTASSIUM SERUM 3.9 MEQ/L (3.5-5.1); SODIUM LEVEL 143 MEQ/L (136-145); TOTAL PROTEIN 6.9 GM/DL (6.4-8.2)
[2018-08-06] MEDS ORDERED: KETOROLAC 30 MG/ML VIAL (J1885) IV (07:15)
[2018-08-06] MEDS ORDERED: SLF 3 ML SYR IV ×2 (08:15→14:00)
[2018-08-06] MEDS: MULTIVITAMINS/MINERALS THERAP 1 TAB PO (10:11)
[2018-08-06] MEDS: SERTRALINE 100 MG TAB PO (10:11)
[2018-08-06] MEDS: PANTOPRAZOLE 40MG TAB (PROTONIX) PO (10:12)
[2018-08-06] MEDS: ASPIRIN 81 MG ENTERIC TAB PO (10:12)
[2018-08-06] MEDS: SENOKOT S TAB PO (10:12)
[2018-08-06] MEDS: clonazePAM 1 MG TAB PO (10:13)
== END 2018-08-06 12:25 | disposition home or self-care (01) | DRG 58 ==
LOC: M ED 11:21 → M ED INP 14:43 → M PCU 17:14
DX: F95.9 Tic disorder, unspecified (principal); I67.1 Cerebral aneurysm, nonruptured; F33.1 Major depressive disorder, recurrent, moderate; E55.9 Vitamin D deficiency, unspecified; G43.909 Migraine, unspecified, not intractable, without status migrainosus; F17.210 Nicotine dependence, cigarettes, uncomplicated; K21.9 Gastro-esophageal reflux disease without esophagitis; F43.23 Adjustment disorder with mixed anxiety and depressed mood; F41.9 Anxiety disorder, unspecified; E78.5 Hyperlipidemia, unspecified; K58.9 Irritable bowel syndrome, unspecified; M72.2 Plantar fascial fibromatosis; Z88.8 Allergy status to other drugs, medicaments and biological substances; Z90.49 Acquired absence of other specified parts of digestive tract; Z90.710 Acquired absence of both cervix and uterus; Z98.41 Cataract extraction status, right eye; Z98.42 Cataract extraction status, left eye; Z79.82 Long term (current) use of aspirin; Z79.899 Other long term (current) drug therapy; Z63.4 Disappearance and death of family member

== ENCOUNTER → 2018-08-17 | Outpatient (CLI) | payer BC | LOC: M WUC 08:27 | DX: M79.671 Pain in right foot (principal); M77.31 Calcaneal spur, right foot | CPT/HCPCS: 73630 ==

== ENCOUNTER → 2018-12-13 | Outpatient (REF) | payer BC ==
[~2018-12-13] MED LIST changes: +BACT800T5 PO; -CLON2TAB PO; +CLON2TAB7 PO; -PANT40TA2 PO; +PANT40TA3 PO; +REGL10TA6 PO; +TRAZ-163 PO; -VITA1CAP40 PO; +VITA50005 PO; +VITMTA PO
[2018-12-13 19:18] LABS: APPEARANCE, URINE CLEAR (CLEAR); BACTERIA, URINE AUTO NEGATIVE (NEGATIVE); BILIRUBIN, URINE AUTO NEGATIVE (NEGATIVE); BLOOD, URINE BLOOD 1+ (NEGATIVE); COLOR, URINE YELLOW (YELLOW); GLUCOSE, URINE (UA) AUTO NEGATIVE (NEGATIVE); KETONE, URINE AUTO NEGATIVE (NEGATIVE); LEUKOCYTE ESTERASE, URINE AUTO NEGATIVE (NEGATIVE); NITRITE, URINE AUTO NEGATIVE (NEGATIVE); PROTEIN, URINE AUTO NEGATIVE (NEGATIVE); RBC, URINE AUTO 4 /HPF (0-3); SPECIFIC GRAVITY URINE AUTO 1.008 (1.002-1.035); SQUAMOUS EPITHELIAL CELL UR AU 0 /HPF (0-6); UROBILINOGEN, URINE AUTO 0.2 mg/dL (0.0-2.0); WBC, URINE AUTO 1 /HPF (0-3)
== END ==
LOC: M LAB REF 17:00
PROVIDERS: ATTEND Obstetrics & Gynecology
DX: N39.46 Mixed incontinence (principal)

== ENCOUNTER → 2018-12-20 | Outpatient (CLI) | payer BC ==
--- NOTE | 2018-12-20 10:34 | REPMRS ---
Patient History The patient states she had a clinical breast exam in November 2018.No known family history of cancer. 3D TOMOSYNTHESIS WAS PERFORMED. Digital Mammo Screening Bilat: December 20, 2018 - Exam #: [id number] Bilateral CC and MLO view(s) were taken. Technologist: Umu Falcon, Technologist Prior study comparison: December 18, 2017, bilateral digital mammo screening bilat performed at [facility]. August 15, 2016, bilateral digital mammo screening bilat performed at [facility]. FINDINGS: The breast tissue is heterogeneously dense. This may lower the sensitivity of mammography. There has been no change in the appearance of the mammogram from the prior studies. There is a moderate amount of residual fibroglandular tissue which is fairly symmetric. There is no interval development of dominant mass, areas of architectural distortion, or clustered microcalcification typical of malignancy. Assessment: BI-RADS/ACR category 1 mammogram. Negative Mammogram. Recommendation Routine screening mammogram in 1 year (for women over age 40). This mammogram was interpreted with the aid of an FDA-approved computer-aided dectection system. Electronically Signed By: Simeon Gama MD 12/20/18 [id number]
== END ==
LOC: M RAD 09:02
PROVIDERS: ATTEND Obstetrics & Gynecology
DX: Z12.31 Encounter for screening mammogram for malignant neoplasm of breast (principal)

== ENCOUNTER 2019-01-13 11:08 | Observation (INO) | payer BC ==
[~2019-01-13] VITALS: Ht 162.6 cm; Wt 58.7 kg
[2019-01-13 11:27] LABS: BASO % 0.5 % (0.0-1.0); EOS # 0.1 10^3/uL (0.0-0.50); EOS % 1.2 % (0.0-3.0); HEMATOCRIT 37.9 % (36.0-47.0); HEMOGLOBIN 12.6 g/dl (12.0-15.5); LYMPH % 27.2 % (24.0-44.0); MEAN CORPUSCULAR HEMOGLOBIN 31.7 pg (27.0-33.0); MEAN CORPUSCULAR HGB CONC 33.2 g/dl (32.0-36.5); MEAN CORPUSCULAR VOLUME 95.5 fl (80.0-96.0); MONO # 0.4 10^3/uL (0.0-0.8); MONO % 5.3 % (0.0-5.0); NEUTROPHILS # 4.8 10^3/uL (1.8-7.7); NEUTROPHILS % 65.7 % (36.0-66.0); PLATELET COUNT, AUTOMATED 154 10^3/uL (150-450); RED BLOOD COUNT 3.97 10^6/uL (4.00-5.40); WHITE BLOOD COUNT 7.3 10^3/uL (4.0-10.0)
--- NOTE | 2019-01-13 11:34 | REP ---
CT Head without contrast HISTORY: Infarction COMPARISON: 08/03/2018 There is no intraparenchymal hemorrhage, acute infarct, mass or midline shift. The ventricular system and cortical sulci are dilated consistent with minimal volume loss. There is no extra cerebral collection. There is no fracture. The visualized sinuses are clear. IMPRESSION: Minimal volume loss. Electronically Signed by Mikhail Gunn MD 01/13/2019 11:25 A
[2019-01-13 11:38] LABS: INR 0.93; PROTHROMBIN TIME 12.6 SECONDS (12.1-14.4)
--- NOTE | 2019-01-13 11:48 | REP ---
Chest one-view HISTORY: Infarction Comparison: 08/12/2017 The lungs are clear. The heart is normal in size. The pulmonary vasculature is normal in appearance. Impression: No acute disease. Electronically Signed by Mikhail Gunn MD 01/13/2019 11:40 A
[2019-01-13 12:02] LABS: BLOOD UREA NITROGEN 10 MG/DL (7-18); CALCIUM LEVEL 8.4 MG/DL (8.8-10.2); CARBON DIOXIDE LEVEL 31 MEQ/L (21-32); CHLORIDE LEVEL 108 MEQ/L (98-107); CK-MB VALUE MASS < 1.0 NG/ML (<3.6); CPK CREATINE PHOSPHOKINASE 68 U/L (26-192); CREATININE FOR GFR 0.92 MG/DL (0.55-1.30); GLOMERULAR FILTRATION RATE > 60.0 (>45); GLUCOSE, FASTING 96 MG/DL (70-100); MB/CK RELATIVE INDEX 1.47 (< OR =4); POTASSIUM SERUM 3.9 MEQ/L (3.5-5.1); SODIUM LEVEL 143 MEQ/L (136-145); TROPONIN I < 0.02 NG/ML (< 0.10)
[2019-01-13] MEDS ORDERED: METOCLOPRAMIDE INJ 10MG/2ML VIAL (J2765) IV ONE (12:15)
[2019-01-13] MEDS: NS 1,000 ML IV SCH ×2 (12:53→18:22)
[2019-01-13] MEDS ORDERED: HYDR-3363 PO (13:31)
[2019-01-13] MEDS ORDERED: HYDR50TA70 PO (13:33)
[2019-01-13] MEDS ORDERED: BISACODYL 5 MG TAB PO PRN (15:45)
[2019-01-13] MEDS ORDERED: ONDANSETRON 4 MG TAB (S0181) PO PRN (15:45)
[2019-01-13] MEDS ORDERED: hydrOXYzine 10 MG TAB PO PRN (15:45)
[2019-01-13] MEDS ORDERED: ALPRAZolam 0.25 MG TAB PO ONE (16:00)
[2019-01-13 17:32] VITALS: BP 116/57
--- NOTE | 2019-01-13 17:38 | HPE ---
DATE OF ADMISSION: 01/13/2019 PRIMARY CARE PROVIDER: Cherie Lay NP CHIEF COMPLAINT: Syncopal episode. PSYCHIATRIST: Dr. Noel HISTORY OF PRESENT ILLNESS: This is a 58-year-old female who was at her psychiatrist Dr. Noel's office today. She had just finished her appointment and had a syncopal episode. Per the patient she does not remember this, however Dr. Noel had told her that she had mentioned she was not feeling well as she started to stand up and then fell back into the chair. Per emergency medical services (EMS), Dr. Noel had noticed some left-sided decorticate posturing and the patient was a little sluggish, lethargic and had some fogginess to her vision. The patient states that the first thing she remembers is Dr. Noel standing over her and telling her to stay with them, that it would be alright, and calling the ambulance. The patient states that over the last few weeks she has had some worsening balance and some increased headaches. 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 She sees Ro Henley at the [facility] for this. She has also been feeling lightheaded but denies any weakness. The patient denies any changes to sensation, changes to her vision, or vertiginous symptoms. She only admits to being somewhat lightheaded and having periodic nosebleeds. REVIEW OF SYSTEMS: Constitutional: Denies any weight changes, fevers, chills, changes to appetite or recent trauma. HEENT: Denies any visual changes, runny nose, sinus pain, ear pain, tinnitus, sore throat or odynophagia. Positive for headaches as well as a few episodes of epistaxis. Cardiovascular: Denies any chest pain, orthopnea, edema, paroxysmal nocturnal dyspnea (PND), palpitations. Respiratory: Denies any cough, shortness of breath, sputum production, wheezes, hemoptysis. Gastrointestinal: Denies any abdominal pain, unintentional weight loss, anorexia, nausea, vomiting, diarrhea, constipation, obstipation, hematemesis, hematochezia, melena or tenesmus. Genitourinary: Denies any hematuria, dysuria, incontinence, nocturia, polyuria, hesitancy Musculoskeletal: Denies stiffness, joint swelling or decreased range of motion. Integumentary: Denies any pruritus, rashes, striatal lesions or wounds. Neurological: Admits to headaches and worsening balance as well as feeling lightheaded. She denies any double vision but does admit to some blurriness that comes and goes. Denies any changes in smell, hearing or taste, seizures, paresthesias, anesthesias or limb weakness. Psychiatric: Admits to severe anxiety as well as depression but denies any paranoia, anhedonia or episodes of daphnie. Endocrine: Denies any polydipsia, tremors, mood swings, palpitations, constipation or dry skin. Hematologic: Denies any anemia, purpura, petechiae, easy bruising or bleeding. Lymphatic: Denies any new lumps or bumps anywhere. PAST MEDICAL HISTORY: 1. History of migraines. 2. Gastroesophageal reflux disease. 3. Anxiety. 4. Irritable bowel syndrome. 5. Depression. 6. Breast fibrosis. 7. Dyslipidemia. 8. Vitamin D deficiency. 9. Arthritis. 10. 2 mm right ICA aneurysm. PAST SURGICAL HISTORY: Left breast biopsy with subsequent left breast lump removal times two, cholecystectomy, colonoscopy, upper endoscopy, endometrial biopsy with subsequent ablation and hysterectomy, laparoscopic lysis of adhesion, bladder repair, bilateral cataract, and incision and repair of ventral hernia with multiple other hernia repairs. MEDICATIONS: - aspirin 81 mg by mouth daily - Klonopin 2 mg by mouth in the morning and 4 mg by mouth in the afternoon - multivitamin one tablet by mouth daily - Protonix 40 mg by mouth twice a day - pravastatin 40 mg by mouth nightly - Zoloft 100 mg by mouth daily - trazodone 200 mg by mouth nightly FAMILY HISTORY: Father had congestive heart failure, CVA, myocardial infarction. Mother had diabetes, hypertension and tachycardia. They have five kids, four of which are still living and healthy, the other child from drug overdose. SOCIAL HISTORY: The patient is a current smoker. DICTATION ENDS HERE My faculty preceptor for this patient encounter was physically present during the encounter and was fully available. All aspects of the patient interview, examination, medical decision making process, and medical care plan development were reviewed and approved by the faculty preceptor. The faculty preceptor is aware and concurs with the plan as stated in the body of this note and will attest to such by his/her cosignature.
--- NOTE | 2019-01-13 18:09 | ECGEPIP ---
Stationary ECG Study [facility] - ED Test Date: 2019-01-13 Pat Name: JASMEET BENNETT Department: Room: - Gender: F Emergency Medical Technician Basic: KAVON : 1960 Requested By: FIOR Porras Order Number: [id number] Reading MD: Pavan Wong Measurements Intervals [place] Rate: 70 P: 62 [place]: 165 QRS: 28 QRSD: 70 T: 52 QT: 382 QTc: 414 Interpretive Statements SINUS RHYTHM POSSIBLE LEFT ATRIAL ENLARGEMENT SIMILAR TO 08/05/18 Electronically Signed On 01-13-2019 18:08:50 EST by Pavan Wong
--- NOTE | 2019-01-13 18:53 | HPE ---
DATE OF ADMISSION: 01/13/2019 My preceptor for this encounter is Dr. English. PRIMARY CARE PROVIDER: Cherie Lay PSYCHIATRIST: Dr. Noel CHIEF COMPLAINT: Syncopal episode. HISTORY OF PRESENT ILLNESS: This is an 58-year-old female who was at her psychiatrist's office today when she had a syncopal episode. She states that she had just ended her appointment with Dr. Noel and the next thing she remembered was him standing over her asking if she was alright, telling her to stay with him and having his front desk coordinator call an ambulance. Per the patient, as she was standing up, she told him she was not feeling well and then she fell back into the chair. He described left-sided decorticate posturing. The patient states that she has had worsening balance and headaches over the last couple of weeks as well as blurry vision. Emergency medical services (EMS) reported that the patient was slightly lethargic, and she reports that she feels like her brain is in a fog. She denies any muscle weakness or history of seizure disorder. 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 She sees SHAW Vital at [facility] [place]. REVIEW OF SYSTEMS: Constitutional: Denies any unexplained weight loss, change to appetite, fevers, chills or night sweats. HEENT: Positive for headaches and blurry vision. Negative for double vision, runny nose, sinus pain, tinnitus, sore throat or odynophagia. Positive for a few episodes of epistaxis. Cardiovascular: Denies chest pain, palpitations, edema, orthopnea, or paroxysmal nocturnal dyspnea (PND). Respiratory: Denies cough, sputum production, wheezes, hemoptysis or shortness of breath. Gastrointestinal (GI): Denies nausea, vomiting, diarrhea, constipation, obstipation, hematemesis, hematochezia, melena, tenesmus, abdominal pain or difficulty swallowing. Genitourinary: Denies hesitancy, dribbling, nocturia, dysuria, hematuria, incontinence, polyuria. Musculoskeletal: Denies any weakness, joint swelling or stiffness. Integumentary: Denies any new pruritus, rashes, striae, lesions or wounds. Neurologic: Denies any changes to smell, hearing or taste, seizures, paresthesias, numbness or limb weakness. Positive for worsening balance and blurry vision as well as headaches. Psychiatric: Admits to a history of depression and anxiety but denies any new paranoia, anhedonia, or episodes of daphnie. Endocrine: Denies any mood swings, sweatiness, diarrhea, tremors, palpitations, constipation, dry skin, polydipsia. Hematologic: Denies any anemia, purpura, petechiae, easy bruising or bleeding. Lymphatic: No new lumps or bumps anywhere. PAST MEDICAL HISTORY: Migraine headaches. Gastroesophageal reflux disease (GERD). Anxiety. Depression, complicated with bereavement. Irritable bowel syndrome. Breast fibrosis. Dyslipidemia. Vitamin D deficiency. Arthritis. HOME MEDICATIONS: - aspirin 81 mg by mouth daily - clonazepam 2 mg by mouth every morning, 4 mg by mouth nightly - multivitamin - Protonix 40 mg by mouth twice a day - pravastatin 40 mg by mouth nightly - Zoloft 100 mg by mouth daily - trazodone 200 mg by mouth nightly PAST SURGICAL HISTORY: Left breast biopsy with subsequent breast lump removal times two. Cholecystectomy. Colonoscopy, Upper endoscopy. Endometrial biopsy. Endometrial ablation. Hysterectomy. Laparoscopic lysis of adhesions. Bladder repair. Incision and repair of ventral hernia and multiple hernia repairs. FAMILY HISTORY: Father had congestive heart failure, CVA, and myocardial infarction. Her mother has diabetes, hypertension and tachycardia. She has five kids, four of whom are healthy. One is from a drug overdose. ALLERGIES: CHANTIX. SOCIAL HISTORY: Current smoker, half pack a day for 40+ years. She drinks wine on rare occasions, about once a month. Denies any drug use or recent travel. PHYSICAL EXAMINATION Vital Signs: Temperature 98.6 degrees, pulse is 62 and regular, respiratory rate is 16, blood pressure is 93/50, pulse ox is 96% on room air. General: The patient is alert, oriented and comfortable in the emergency department on the stretcher, in no acute distress. HEENT: Pupils are equal, round and reactive to light. Extraocular eye movements are intact. Mucous membranes are moist. The patient has her own teeth and dentition is fair. Head is atraumatic, normocephalic. There is no bruising. Neck: Moves freely. Supple, no masses. No jugular venous distention (JVD). No lymphadenopathy is appreciated. Lungs: Clear to auscultation bilaterally. No wheezes, rhonchi or rales. Heart: Regular rate and rhythm. No murmurs, gallops or rubs. Back: No costovertebral angle (CVA) tenderness bilaterally. No structural abnormalities. Abdomen: Normoactive bowel sounds, soft and nontender to palpation. No organomegaly is appreciated. Extremities: Bilateral lower extremity edema. No clubbing, no cyanosis noted. Neurologic: The patient has 5/5 muscle strength in all four extremities. Reflexes were tested and are equal 2+ bilaterally in both upper and lower extremities. Cranial nerves II-XII are grossly intact. Romberg sign was negative. [id number] and [id number] were normal. There is no pronator drift. LABORATORY DATA: CBC: WBC 7.3, hemoglobin 12.6, hematocrit 37.9, platelets 154. Chemistry: Sodium 143, potassium 3.9, chloride 108, carbon dioxide 31, BUN 10, creatinine 0.92, fasting glucose 96, calcium 8.4, creatinine kinase 68, CK-MB less than 1, troponin is less than 0.02. Coagulation: PT 12.6, INR 0.93, APTT 32. Blood bank: A negative. IMAGING: Head CT was negative for any acute disease. Chest x-ray was negative for any acute disease. EKG shows sinus rhythm at 70 beats per minute, normal axis, unchanged from 08/05/2018. ASSESSMENT AND PLAN: This is a 58-year-old female who had a syncopal episode witnessed by her psychiatrist. She will be admitted to observation for telemetry monitoring. She will be admitted for observation under Dr. Goldman's service starting at 0700 hours tomorrow morning. PLAN: 1. Witnessed syncope. The patient's vital signs ruled out hypoxia and tachycardia. Lab work has ruled out hypoglycemia. Her vital signs also do not support pulmonary embolism, and she is not tachycardiac nor hypoxic. Laboratory studies ruled out a heart attack. Orthostatic blood pressures were done in the emergency department which do not favor a vasovagal reason for her syncopal episodes. Her electrolytes are normal. She will be admitted for telemetry monitoring. We will also do an echo to evaluate for aortic stenosis. As well, we will get an MRI of her brain to evaluate and make sure that her right ICA aneurysm has not enlarged. 2. Depression, anxiety. Continue her current medication, Klonopin, Zoloft, trazodone. Hydroxyzine as needed. 3. Dyslipidemia. Continue statin. 4. Gastroesophageal reflux disease. Continue proton pump inhibitor (PPI). 5. The patient is a smoker. I have provided her a nicotine patch. 6. Deep vein thrombosis (DVT) prophylaxis. Thromboembolism deterrents (TEDs) and sequentials. DISPOSITION: The patient will be admitted to observation for telemetry. We have ordered an echo. Pending clinical improvement. Again, my preceptor for this encounter is Dr. English. My faculty preceptor for this patient encounter was physically present during the encounter and was fully available. All aspects of the patient interview, examination, medical decision making process, and medical care plan development were reviewed and approved by the faculty preceptor. The faculty preceptor is aware and concurs with the plan as stated in the body of this note and will attest to such by his/her cosignature. I have both independently examined this patient as well as reviewed the H&P. I have discussed in detail with the resident the findings and plan of treatment as documented in the resident's note MTDD
--- NOTE | 2019-01-13 20:18 | REP ---
MRA BRAIN WITHOUT CONTRAST: HISTORY: Syncope. 3D [id number] MR angiography was performed at the level of the [place]. A 2 mm aneurysm is present arising from the cavernous right internal carotid artery. The aneurysm projects medial from the cavernous right internal carotid artery. This is unchanged in size compared to the previous study. There is no other aneurysm or arteriovenous malformation. There are no atherosclerotic lesions. 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 Major intracranial vessels are patent. The left vertebral artery is dominant. IMPRESSION: 2 mm cavernous right internal carotid artery aneurysm unchanged in size compared to the previous study. Electronically Signed by Mikhail Gunn MD 01/14/2019 08:06 A
[2019-01-13] MEDS: PANTOPRAZOLE 40MG TAB (PROTONIX) PO SCH (20:19)
[2019-01-13] MEDS: clonazePAM 1 MG TAB PO SCH (20:19)
[2019-01-13] MEDS: PRAVASTATIN 20 MG TAB PO SCH (20:20)
[2019-01-13] MEDS ORDERED: traZODone 100 MG TAB PO SCH (21:00)
[2019-01-13 22:00] VITALS: BP 94/55
[2019-01-14] MEDS: NS 1,000 ML IV SCH ×3 (01:04→14:50)
[2019-01-14 01:56] VITALS: BP 112/73
[2019-01-14] MEDS: ACETAMINOPHEN TAB 650MG DOSE (2X325MG) PO PRN ×4 (02:23→22:57)
[2019-01-14 06:00] VITALS: BP 102/58
[2019-01-14 06:14] LABS: HEMATOCRIT 32.6 % (36.0-47.0); MEAN CORPUSCULAR HEMOGLOBIN 30.4 pg (27.0-33.0); MEAN CORPUSCULAR HGB CONC 31.6 g/dl (32.0-36.5); MEAN CORPUSCULAR VOLUME 96.2 fl (80.0-96.0); PLATELET COUNT, AUTOMATED 109 10^3/uL (150-450); RED BLOOD COUNT 3.39 10^6/uL (4.00-5.40); WHITE BLOOD COUNT 4.7 10^3/uL (4.0-10.0)
[2019-01-14 06:22] LABS: HEMOGLOBIN 10.3 g/dl (12.0-15.5)
[2019-01-14 06:33] LABS: BLOOD UREA NITROGEN 11 MG/DL (7-18); CALCIUM LEVEL 7.8 MG/DL (8.8-10.2); CARBON DIOXIDE LEVEL 27 MEQ/L (21-32); CHLORIDE LEVEL 113 MEQ/L (98-107); CREATININE FOR GFR 0.86 MG/DL (0.55-1.30); GLOMERULAR FILTRATION RATE > 60.0 (>45); GLUCOSE, FASTING 112 MG/DL (70-100); POTASSIUM SERUM 4.2 MEQ/L (3.5-5.1); SODIUM LEVEL 144 MEQ/L (136-145)
[2019-01-14] MEDS: clonazePAM 1 MG TAB PO SCH ×2 (08:06→20:56)
[2019-01-14] MEDS: SERTRALINE 100 MG TAB PO SCH (08:06)
[2019-01-14] MEDS: MULTIVITAMINS/MINERALS THERAP 1 TAB PO SCH (08:06)
[2019-01-14] MEDS: PANTOPRAZOLE 40MG TAB (PROTONIX) PO SCH ×2 (08:06→20:56)
[2019-01-14] MEDS: ASPIRIN 81 MG ENTERIC TAB PO SCH (08:06)
[2019-01-14] MEDS: NICOTINE 7 MG/24 HR TRANSDERMAL TD SCH (09:00)
[2019-01-14 14:00] VITALS: BP 118/56
--- NOTE | 2019-01-14 14:10 | IPNPDOC ---
Text Note Date of Service The patient was seen on 01/14/19. NOTE Subjective: Patient is seen at bedside this morning. She states that she is less anxious. There have been no overnight events on telemetry, though the patient was bradycardic in the 40s several times. She denies any other syncopal episodes, chest pain, dizziness, weakness, shortness of breath, or muscle spasm. She denies nausea, vomiting, diarrhea, or constipation. She admits today that she has lost weight over the last few months due to recent traumatic events in her personal life. Objective: Vital signs: See below Gen.: Alert and oriented 3, in no acute distress. Pleasant and cooperative HEENT: Normocephalic, atraumatic. Pupils equal, round and reactive to light. E xtraocular eye movements are intact. Lungs: Clear to auscultation bilaterally. No wheezes, rhonchi or rales Heart: Regular rate and rhythm. No murmurs, gallops or rubs Abdomen: Normoactive bowel sounds, soft nontender to palpation. Neuro: 5 out of 5 muscle strength in all 4 extremities. Cranial nerves II-XII grossly intact. Sensation is normal, no focal neurological deficits are noted. Assessment: 58-year-old female with a recent syncopal episode. Plan: 1. Witnessed syncope. Most causes of syncope have been ruled out. Patient has had no events on telemetry. Echocardiogram is pending. As she was bradycardic overnight on telemetry, I am wondering if her trazodone may be too high of a dose in light of her recent weight loss. I spoke to Dr Noel's office, to relay this information, so he is aware and may adjust her medications outpatient accordingly. I have added a thyroid panel to her morning labs. We also had a lengthy discussion that with the recent syncopal episode, we recommend not swimming alone, climbing ladders, or driving for the next 6 months. 2. 2 mm Right-sided ICA aneurysm. 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 I spoke to Dr. Bonifacio Lay from the [facility] who recommended that her follow-up with them, the patient be seen and evaluated by Dr. Allison, who does neurovascular surgery. 3. Depression and anxiety. Continue her current medications. I spoke to Dr. Noel's office, and they'll make adjustments accordingly. 4. Dyslipidemia. Continue statin 5. GERD. Continue PPI 6. Tobacco use, continue nicotine patch 7. DVT prophylaxis. Thromboembolism deterrents and sequential's. Disposition: Pending echo results, possible discharge in the next 24-48 hours VS,Fishbone, I+O VS, Fishbone, I+O Laboratory Tests 01/14/19 05:25 Red Blood Count 3.39 L, Mean Corpuscular Volume 96.2 H, Mean Corpuscular Hemoglobin 30.4, Mean Corpuscular Hemoglobin Concent 31.6 L, Red Cell Distribution Width 12.9, Calcium Level 7.8 L Vital Signs Date Time Temp Pulse Resp B/P (MAP) Pulse Ox O2 Delivery O2 Flow Rate FiO2 01/14/19 06:00 98.6 56 18 102/58 (73) 98 01/13/19 11:17 Room Air I&O- Last 24 Hours up to 6 AM 01/14/19 06:00 Intake Total 2100 ml Output Total 1000 ml Balance 1100 ml GME ATTESTATION GME ATTESTATION My faculty preceptor for this patient encounter was physically present during t he encounter and was fully available. All aspects of the patient interview, examination, medical decision making process, and medical care plan development were reviewed and approved by the faculty preceptor. The faculty preceptor is aware and concurs with the plan as stated in the body of this note and will attest to such by his/her cosignature. SUKHI GIBSON DO Jan 14, 2019 14:10
[2019-01-14] MEDS ORDERED: traZODone 50 MG TAB PO PRN (15:45)
[2019-01-14] MEDS: PRAVASTATIN 20 MG TAB PO SCH (20:56)
--- NOTE | 2019-01-14 21:15 | ECHO ---
DATE OF PROCEDURE: 01/14/2019 DATE OF : 1960 AGE: 58 REFERRING PROVIDER: Dr. Terrell Goldman PATIENT LOCATION: Room 4236 REASON FOR THE ECHOCARDIOGRAM: Syncope. 2D MEASUREMENTS: IVS: 0.7 cm LV: 5.0 cm LVPW: 0.8 cm LA: 3.0 cm Aorta: 2.8 cm IVC: 2.0 cm DOPPLER MEASUREMENTS: Peak velocity across the aortic valve: 1.1 m/s Peak velocity across the LVOT: 1.1 m/s Mitral E: 1.0, Mitral A: 0.4 with a ratio of 2.3 Maximum tricuspid valve velocity: 2.7 m/s 2D COMMENTS: 1. Normal left ventricular size, wall thickness, and normal global left ventricular systolic function. The estimated left ventricular systolic ejection fraction is 60-65% 2. Normal left atrium. Normal right atrium and right ventricle. 3. The atrial septum appeared to be normal without evidence of defect or shunt. 4. Normal aortic root. 5. No pericardial effusion seen. 6. Minimally calcified aortic valve with normal leaflet excursion. Normal mitral valve, tricuspid valve, and pulmonic valve. The proximal pulmonary artery branches were not well visualized. 7. The inferior vena cava was borderline enlarged. DOPPLER: It detects mild to moderate mitral regurgitation, mild to moderate tricuspid regurgitation. The calculated pulmonary artery systolic pressure varies between 30 to 40 mmHg. Assessment of the left ventricular diastolic function appeared to be normal. IMPRESSION: 1. Normal global left ventricular systolic and diastolic function. 2. Aortic valve sclerosis without stenosis or aortic regurgitation. 3. Mild to moderate mitral regurgitation. 4. Mild to moderate tricuspid regurgitation with mild pulmonary hypertension.
[2019-01-14 22:00] VITALS: BP 118/70
[2019-01-15 06:00] VITALS: BP 118/56
[2019-01-15 06:28] LABS: HEMATOCRIT 33.8 % (36.0-47.0); HEMOGLOBIN 10.8 g/dl (12.0-15.5); MEAN CORPUSCULAR HEMOGLOBIN 30.7 pg (27.0-33.0); PLATELET COUNT, AUTOMATED 115 10^3/uL (150-450); RED BLOOD COUNT 3.52 10^6/uL (4.00-5.40); WHITE BLOOD COUNT 5.5 10^3/uL (4.0-10.0)
[2019-01-15 07:00] LABS: BLOOD UREA NITROGEN 10 MG/DL (7-18); CARBON DIOXIDE LEVEL 28 MEQ/L (21-32); CHLORIDE LEVEL 110 MEQ/L (98-107); CREATININE FOR GFR 0.81 MG/DL (0.55-1.30); FREE THYROXINE INDEX 2.2 % (1.3-4.8); GLOMERULAR FILTRATION RATE > 60.0 (>45); GLUCOSE, FASTING 122 MG/DL (70-100); POTASSIUM SERUM 3.9 MEQ/L (3.5-5.1); SODIUM LEVEL 143 MEQ/L (136-145); T UPTAKE 33 % (30-39); THYROXINE (T4) 6.7 UG/DL (4.5-12.0)
[2019-01-15] MEDS: ASPIRIN 81 MG ENTERIC TAB PO SCH (08:00)
[2019-01-15] MEDS: ACETAMINOPHEN TAB 650MG DOSE (2X325MG) PO PRN (08:00)
[2019-01-15] MEDS: NICOTINE 7 MG/24 HR TRANSDERMAL TD SCH (08:00)
[2019-01-15] MEDS: SERTRALINE 100 MG TAB PO SCH (08:00)
[2019-01-15] MEDS: MULTIVITAMINS/MINERALS THERAP 1 TAB PO SCH (08:00)
[2019-01-15] MEDS: clonazePAM 1 MG TAB PO SCH (08:00)
[2019-01-15] MEDS: PANTOPRAZOLE 40MG TAB (PROTONIX) PO SCH (08:00)
[2019-01-15] MEDS ORDERED: TRAZO50TA PO (08:39)
--- NOTE | 2019-01-15 13:11 | DSES ---
DATE OF ADMISSION: 01/13/2019 DATE OF DISCHARGE: 01/15/2019 DISCHARGE DIAGNOSIS Syncope. CONSULTANTS None. HOSPITAL COURSE This is a 58-year-old female who had a syncopal episode at her psychiatrist's office. She was brought to the emergency department per EMS. She was admitted to [facility] telemetry for continued monitoring. Workup ruled out hypoxia, tachycardia, hypoglycemia, myocardial infarction, aortic stenosis, orthostatic hypotension, abnormal electrolytes, arrhythmia or stroke. She does have a history of a 2 mm right ICA aneurysm, which was unchanged via MRA. Her case was discussed with Dr. Lay from [facility] neurosurgery who recommended followup outpatient with Dr. Allison as the patient is already established with Ro Mckeon. Patient had no events on telemetry, her echocardiogram was normal, she was deemed safe for discharge on 01/15/2019. It was recommended that she not swim alone, climb ladders, or drive for at least 6 months. SUBJECTIVE The patient is alert and awake this morning. She reports no new complaints. She is anxious to be discharged to home. She denies any chest pain, palpitations or syncopal episodes. She denies any fevers, chills, shortness of breath, nausea, vomiting or diarrhea. OBJECTIVE Vital signs: Temperature 98.3, pulse 64 and regular, respiratory rate 16, blood pressure 118/56, pulse ox is 98% on room air. General: Pleasant middle-aged female who was alert and oriented. She is in no acute distress. HEENT: Pupils equal, round and reactive to light. Extraocular eye movements are intact. Mucous membranes are moist. Neck: Supple, no masses. No JVD. Lungs: Clear to auscultation bilaterally. No wheezes, rhonchi or rales. Heart: Regular rate and rhythm. No murmurs, gallops or rubs. Abdomen: Normoactive bowel sounds, soft, nontender to palpation. No organomegaly is appreciated. Extremities: No bilateral lower extremity edema. No clubbing or cyanosis noted. Neuro: 5/5 muscle strength in all four extremities. Reflexes were equal and symmetric bilaterally in both upper and lower extremities. Cranial nerves II-XII grossly intact. Romberg sign was negative finger to nose and heel to chew were normal. There is no pronator drift. LABORATORY DATA CBC: WBC 5.5, hemoglobin 10.8, hematocrit 33.8, platelets 115. Chemistry: Sodium 143, potassium 3.9, chloride 110, carbon dioxide 28, BUN 10, creatinine 0.81, fasting glucose 122, calcium 8.0, TSH 1.89, thyroxine 6.7. Coagulation: PT 12.6, INR 0.93, APTT 32.0. IMAGING: Head CT done 01/13/2019 showed minimal volume loss, otherwise no intraparenchymal hemorrhage, acute infarct, mass or midline shift. Chest x-ray done in 01/13/2019 showed no acute disease. Brain MRA and 01/13/2019 showed A hyperplastic P1 segment of the left posterior cerebral artery and a 2 mm cavernous right internal carotid artery aneurysm, unchanged in size compared to July. Echocardiogram done 01/14/2019 showed normal global left ventricular systolic and diastolic function. Aortic valve sclerosis without stenosis or regurgitation, mild to moderate mitral regurgitation, mild to moderate tricuspid regurgitation with mild pulmonary hypertension. ASSESSMENT 58-year-old female with recent syncopal episode. PLAN 1. Witnessed syncope. Causes of syncope have been extensively ruled out. The patient has had no events on telemetry besides some mild bradycardia. Her echocardiogram was normal. We decreased her trazodone from 200 mg at bedtime to 150 mg at bedtime as she has had recent weight loss and trazodone may cause bradycardia. Thyroid studies were normal. We recommend that with her most recent syncopal episode, she not swim alone, climb ladders or drive for the next 6 months. 2. 2 mm right sided ICA aneurysm. 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 We spoke to Dr. Bonifacio Lay from [facility] neurosurgery department who recommended that she follow up with them and at that point in time be evaluated by Dr. Allison who does neurovascular surgery. 3. Depression and anxiety. Decreased trazodone from 2 mg at bedtime to 150 mg at bedtime. Continue her other home medications. I spoke to Dr. Noel's office and they will make adjustments accordingly. 4. Dyslipidemia. Continue statin. 5. Gastroesophageal reflux disease. Continue PPI. 6. Tobacco use. We strongly encouraged nicotine patch and smoking cessation. DISCHARGE MEDICATIONS - trazodone 150 mg by mouth at bedtime as needed for insomnia - aspirin 81 mg by mouth daily - clonazepam 2 mg by mouth every a.m., 4 mg by mouth at bedtime - hydroxyzine 50 mg by mouth three times a day for anxiety - multivitamin 1 tablet by mouth daily - Protonix 40 mg by mouth twice a day - pravastatin 40 mg by mouth at bedtime - sertraline 100 mg by mouth daily STOPPED MEDICATION: Trazodone 200 mg by mouth at bedtime. DISPOSITION: Stable. Diet: Regular. Activity: As tolerated. FOLLOWUP: With PCP within the next 1-[address] Allison at [facility] and Dr. Noel as scheduled. Time spent on discharge: Greater than 30 minutes. My faculty preceptor for this patient encounter was physically present during the encounter and was fully available. All aspects of the patient interview, examination, medical decision making process, and medical care plan development were reviewed and approved by the faculty preceptor. The faculty preceptor is aware and concurs with the plan as stated in the body of this note and will attest to such by his/her co-signature.
== END 2019-01-15 09:10 | disposition home or self-care (01) ==
LOC: M ED 11:08 → EDBD 11:08 → M ED INP 14:00 → M MSPAV 17:29
PROVIDERS: ADMIT Internal Medicine; ATTEND Internal Medicine
DX: R55 Syncope and collapse (principal); I67.1 Cerebral aneurysm, nonruptured; K58.9 Irritable bowel syndrome, unspecified; E55.9 Vitamin D deficiency, unspecified; E78.5 Hyperlipidemia, unspecified; K21.9 Gastro-esophageal reflux disease without esophagitis; F17.210 Nicotine dependence, cigarettes, uncomplicated; Z79.82 Long term (current) use of aspirin; Z79.899 Other long term (current) drug therapy
CPT/HCPCS: 36415; 70450; 70544; 71045; 80048; 82550; 82553; 84436; 84443; 84479; 84484; 85025; 85027; 85610; 85730; 86850; 86900; 86901; 93005; 93041; 93306; 94760; 96361; 96374; 99285; J2765

== ENCOUNTER → 2019-03-04 | Outpatient (CLI) | payer OTHER ==
[~2019-03-04] MED LIST changes: -/PANT40TA OR; -/PANT40TA PO; -ASPI1TAB PO; +ASPI81TA26 PO; +HYDR-3363 PO; +PROT1TAB2 OR; +PROT1TAB2 PO; +TRAZO50TA PO
[2019-03-04 19:56] LABS: BASO % 0.3 % (0.0-1.0); EOS # 0.1 10^3/uL (0.0-0.50); EOS % 1.5 % (0.0-3.0); HEMATOCRIT 36.7 % (36.0-47.0); IRON (FE) 101 UG/DL (50-170); LDH LACTATE DEHYDROGENASE 136 U/L (84-246); LYMPH # 2.3 10^3/uL (1.5-4.5); LYMPH % 26.7 % (24.0-44.0); MEAN CORPUSCULAR HEMOGLOBIN 31.3 pg (27.0-33.0); MEAN CORPUSCULAR HGB CONC 32.7 g/dl (32.0-36.5); MEAN CORPUSCULAR VOLUME 95.6 fl (80.0-96.0); MONO # 0.6 10^3/uL (0.0-0.8); MONO % 6.4 % (0.0-5.0); NEUTROPHILS # 5.6 10^3/uL (1.8-7.7); NEUTROPHILS % 64.9 % (36.0-66.0); PERCENT SATURATION 31.8 % (13.2-45.0); PLATELET COUNT, AUTOMATED 157 10^3/uL (150-450); RED BLOOD COUNT 3.84 10^6/uL (4.00-5.40); TOTAL IRON BINDING CAPACITY 318 UG/DL (250-450); WHITE BLOOD COUNT 8.6 10^3/uL (4.0-10.0)
[2019-03-04 20:08] LABS: FOLATE > 24.0 NG/ML; VITAMIN B12 LEVEL 519 PG/ML
[2019-03-04 20:36] LABS: ERYTHROCYTE SEDIMENTATION RATE 10 mm/hr (0-30)
== END ==
LOC: M WUC 15:50
PROVIDERS: ATTEND Internal Medicine Cardiovascular Disease
DX: I34.0 Nonrheumatic mitral (valve) insufficiency (principal); D64.9 Anemia, unspecified

== ENCOUNTER → 2019-03-28 | Outpatient (REF) | payer OTHER | LOC: M LAB REF 19:21 | PROVIDERS: ATTEND Physician Assistant | DX: N30.01 Acute cystitis with hematuria (principal) ==

== ENCOUNTER 2019-05-19 07:51 | Day surgery (SDC) | payer OTHER ==
[~2019-05-19] VITALS: Ht 162.6 cm; Wt 57.5 kg
[2019-05-19] MEDS: NS 1,000 ML IV ONE (06:30)
[~2019-05-19 07:51] MED LIST changes: +LIDOCAINE 2% INJ 100 MG/5 ML SDV (FOR ANES.) As Ordered ONE; +PROPOFOL 200 MG/20 ML VIAL As Ordered ONE; +TRAZ-189 PO; +TRAZ1TAB10 PO; -TRAZO50TA PO
--- NOTE | 2019-05-19 09:26 | ROOR ---
Patient Name: Alejandra Mayer Procedure Date: 05/19/2019 9:10 AM Date of : 1960 Age: 59 Room: [facility] Gender: Female Note Status: Finalized Procedure: Upper GI endoscopy Indications: Suspected esophageal reflux Providers: Will Mcguire Jr, MD Referring MD: Cherie Lay NP Requesting Provider: Medicines: Propofol per Anesthesia Complications: No immediate complications. Procedure: Pre-Anesthesia Assessment: - Prior to the procedure, a History and Physical was performed, and patient medications and allergies were reviewed. The patient is competent. The risks and benefits of the procedure and the sedation options and risks were discussed with the patient. All questions were answered and informed consent was obtained. Patient identification and proposed procedure were verified by the physician and the nurse in the pre-procedure area and in the procedure room. Mental Status Examination: alert and oriented. Airway Examination: normal oropharyngeal airway and neck mobility. Respiratory Examination: clear to auscultation. CV Examination: normal. ASA Grade Assessment: II - A patient with mild systemic disease. After reviewing the risks and benefits, the patient was deemed in satisfactory condition to undergo the procedure. The anesthesia plan was to use moderate sedation / analgesia (conscious sedation). Immediately prior to administration of medications, the patient was re-assessed for adequacy to receive sedatives. The heart rate, respiratory rate, oxygen saturations, blood pressure, adequacy of pulmonary ventilation, and response to care were monitored throughout the procedure. The physical status of the patient was re-assessed after the procedure. The Endoscope was introduced through the mouth, and advanced to the second part of duodenum. The upper GI endoscopy was accomplished without difficulty. The patient tolerated the procedure well. Findings: The upper third of the esophagus, middle third of the esophagus and lower third of the esophagus were normal. The gastroesophageal junction, cardia, gastric fundus and gastric body were normal. Striped mildly erythematous mucosa without bleeding was found in the gastric antrum. Biopsies were taken with a cold forceps for histology. The pylorus was normal. The duodenal bulb, first portion of the duodenum and second portion of the duodenum were normal. Impression: - Normal upper third of esophagus, middle third of esophagus and lower third of esophagus. - Normal gastroesophageal junction, cardia, gastric fundus and gastric body. - Erythematous mucosa in the antrum. Biopsied. - Normal pylorus. - Normal duodenal bulb, first portion of the duodenum and second portion of the duodenum. Recommendation: - Discharge patient to home (ambulatory). - Return to primary care physician as previously scheduled. Will Mcguire MD Will Mcguire Jr, MD 05/19/2019 9:25:32 AM Electronically signed by Will Mcguire Jr, MD Number of Addenda: 0 Note Initiated On: 05/19/2019 9:10 AM Estimated Blood Loss: Estimated blood loss: none.
--- NOTE | 2019-05-19 09:40 | ROOR ---
Patient Name: Alejandra Mayer Procedure Date: 05/19/2019 9:27 AM Date of : 1960 Age: 59 Room: [facility] Gender: Female Note Status: Finalized Procedure: Colonoscopy Indications: High risk colon cancer surveillance: Personal history of colonic polyps Providers: Will Mcguire Jr, MD Referring MD: Cherie Lay NP Requesting Provider: Medicines: Propofol per Anesthesia Complications: No immediate complications. Procedure: Pre-Anesthesia Assessment: - Prior to the procedure, a History and Physical was performed, and patient medications and allergies were reviewed. The patient is competent. The risks and benefits of the procedure and the sedation options and risks were discussed with the patient. All questions were answered and informed consent was obtained. Patient identification and proposed procedure were verified by the physician and the nurse in the pre-procedure area and in the procedure room. Mental Status Examination: alert and oriented. Airway Examination: normal oropharyngeal airway and neck mobility. Respiratory Examination: clear to auscultation. CV Examination: normal. ASA Grade Assessment: II - A patient with mild systemic disease. After reviewing the risks and benefits, the patient was deemed in satisfactory condition to undergo the procedure. The anesthesia plan was to use moderate sedation / analgesia (conscious sedation). Immediately prior to administration of medications, the patient was re-assessed for adequacy to receive sedatives. The heart rate, respiratory rate, oxygen saturations, blood pressure, adequacy of pulmonary ventilation, and response to care were monitored throughout the procedure. The physical status of the patient was re-assessed after the procedure. The Colonoscope was introduced through the anus and advanced to the cecum, identified by appendiceal orifice and ileocecal valve. The colonoscopy was performed without difficulty. The patient tolerated the procedure well. The quality of the bowel preparation was adequate. Findings: The rectum, recto-sigmoid colon, sigmoid colon, descending colon, transverse colon, ascending colon, cecum, appendiceal orifice and ileocecal valve appeared normal. Impression: - The rectum, recto-sigmoid colon, sigmoid colon, descending colon, transverse colon, ascending colon, cecum, appendiceal orifice and ileocecal valve are normal. - No specimens collected. Recommendation: - Discharge patient to home (ambulatory). - Repeat colonoscopy in 5 years for surveillance. Will Mcguire MD Will Mcguire Jr, MD 05/19/2019 9:40:14 AM Electronically signed by Will Mcguire Jr, MD Number of Addenda: 0 Note Initiated On: 05/19/2019 9:27 AM Estimated Blood Loss: Estimated blood loss: none.
[2019-05-19 10:10] VITALS: BP 118/67
== END 2019-05-19 10:19 | disposition home or self-care (01) ==
LOC: M OPP 07:51
PROVIDERS: ATTEND Surgery
DX: K31.89 Other diseases of stomach and duodenum (principal); Z86.010 Personal history of colon polyps

== ENCOUNTER → 2019-06-08 | Outpatient (CLI) | payer OTHER ==
[~2019-06-08] MED LIST changes: -LIDOCAINE 2% INJ 100 MG/5 ML SDV (FOR ANES.) As Ordered ONE; -PROPOFOL 200 MG/20 ML VIAL As Ordered ONE
--- NOTE | 2019-06-08 16:43 | REP ---
Low-dose lung screening CT of the chest: There are no comparisons. The study is performed without IV contrast. The images are presented at lung windowing only. There is a 3 mm lung nodule in the right upper lobe on image 17. This is a category II lung nodule with the probability malignancy less than 1%. There are no other lung nodules or masses. There are no infiltrates or effusions. Impression: Category II low-dose lung screening CT. The probability of malignancy is less than 1%. Depending on risk factors, consider annual follow-up low-dose lung screening CT. Electronically Signed by Simeon Blanchard MD 06/08/2019 04:34 P
== END ==
LOC: M RAD 14:18
PROVIDERS: ATTEND Nurse Practitioner Adult Health
DX: Z12.2 Encounter for screening for malignant neoplasm of respiratory organs (principal); F17.210 Nicotine dependence, cigarettes, uncomplicated

== ENCOUNTER → 2019-07-27 | Outpatient (CLI) | payer OTHER ==
[2019-07-27 09:12] LABS: HEMATOCRIT 38.6 % (36.0-47.0); HEMOGLOBIN 12.7 g/dl (12.0-15.5); MEAN CORPUSCULAR HEMOGLOBIN 31.8 pg (27.0-33.0); MEAN CORPUSCULAR HGB CONC 32.9 g/dl (32.0-36.5); MEAN CORPUSCULAR VOLUME 96.5 fl (80.0-96.0); PLATELET COUNT, AUTOMATED 139 10^3/uL (150-450); WHITE BLOOD COUNT 7.1 10^3/uL (4.0-10.0)
[2019-07-27 09:33] LABS: HEMOGLOBIN A1c 5.6 %
[2019-07-27 09:42] LABS: ALBUMIN 3.9 GM/DL (3.2-5.2); ALT/SGPT 20 U/L (12-78); BILIRUBIN,TOTAL 0.3 MG/DL (0.2-1.0); BLOOD UREA NITROGEN 12 MG/DL (7-18); CALCIUM LEVEL 9.2 MG/DL (8.8-10.2); CARBON DIOXIDE LEVEL 29 MEQ/L (21-32); CHLORIDE LEVEL 108 MEQ/L (98-107); CHOLESTEROL LEVEL 185 MG/DL (<200); CHOLESTEROL RISK RATIO 3.627 (<5); CREATININE FOR GFR 0.86 MG/DL (0.55-1.30); FERRITIN 61 NG/ML (8-252); GLOMERULAR FILTRATION RATE > 60.0 (>45); GLUCOSE, FASTING 95 MG/DL (70-100); HDL CHOLESTEROL 51 MG/DL (>40); LDL CHOLESTEROL 102 MG/DL (<100); NON-HDL-C 134 MG/DL; POTASSIUM SERUM 4.1 MEQ/L (3.5-5.1); SODIUM LEVEL 142 MEQ/L (136-145); TOTAL PROTEIN 7.3 GM/DL (6.4-8.2); TRIGLYCERIDES LEVEL 162 MG/DL (<150)
== END ==
LOC: M WUC 08:07
PROVIDERS: ATTEND Nurse Practitioner Family
DX: R73.01 Impaired fasting glucose (principal); E78.2 Mixed hyperlipidemia; D64.9 Anemia, unspecified

== ENCOUNTER → 2019-09-15 | Outpatient (REF) | payer OTHER | LOC: M LAB REF 12:09 | PROVIDERS: ATTEND Physician Assistant | DX: N39.0 Urinary tract infection, site not specified (principal) ==

== ENCOUNTER → 2019-10-26 | Outpatient (REF) | payer OTHER | LOC: M LAB REF 16:18 | PROVIDERS: ATTEND Physician Assistant | DX: R30.0 Dysuria (principal) ==

== ENCOUNTER → 2019-11-06 | Outpatient (REF) | payer OTHER ==
[2019-11-06 15:35] LABS: CHLAMYDIA DNA AMPLIFICATION NEGATIVE (NEGATIVE); GC DNA AMPLIFICATION NEGATIVE (NEGATIVE)
== END ==
LOC: M LAB REF 13:54
PROVIDERS: ATTEND Physician Assistant
DX: R30.0 Dysuria (principal)

== ENCOUNTER → 2019-11-11 | Outpatient (CLI) | payer OTHER ==
--- NOTE | 2019-11-11 07:57 | REP ---
Limited pelvic, bladder sonography: History: Recurrent urinary tract infections. Findings: Filled bladder alexandra are smooth. No extra vesicle lesion is seen. Pre void bladder volume is calculated at 399 L. Emptying ureteral jets are observed bilaterally in the urinary bladder on color Doppler interrogation. Postvoid imaging shows a 21%, 83 ml postvoid residual. Impression: 21% postvoid residual. Otherwise unremarkable. Electronically Signed by Jefferson Gray MD 11/11/2019 07:49 A
--- NOTE | 2019-11-11 08:11 | REP ---
RENAL SONOGRAPHY: HISTORY: Recurring urinary tract infections. FINDINGS: Renal cortical echogenicity pattern is normal and contours are smooth. There is an extrarenal pelvis configuration of the kidneys but no evidence of intrarenal hydronephrosis is seen. No cyst, mass, or calculus is observed sonographically. Right kidney measures 11.0 x 5.2 x 4.6 cm. Left renal dimensions are 10.6 x 5.5 x 5.5 cm. IMPRESSION: No abnormality noted. Electronically Signed by Jefferson Gray MD 11/11/2019 10:04 A
== END ==
LOC: M RAD 07:13
PROVIDERS: ATTEND Nurse Practitioner Women's Health
DX: N39.0 Urinary tract infection, site not specified (principal)

== ENCOUNTER → 2019-11-22 | Outpatient (REF) | payer OTHER ==
[2019-11-22 13:39] LABS: APPEARANCE, URINE CLEAR (CLEAR); BACTERIA, URINE AUTO NEGATIVE (NEGATIVE); BILIRUBIN, URINE AUTO NEGATIVE (NEGATIVE); BLOOD, URINE BLOOD NEGATIVE (NEGATIVE); COLOR, URINE YELLOW (YELLOW); GLUCOSE, URINE (UA) AUTO NEGATIVE (NEGATIVE); KETONE, URINE AUTO NEGATIVE (NEGATIVE); LEUKOCYTE ESTERASE, URINE AUTO NEGATIVE (NEGATIVE); NITRITE, URINE AUTO NEGATIVE (NEGATIVE); PROTEIN, URINE AUTO NEGATIVE (NEGATIVE); RBC, URINE AUTO 1 /HPF (0-3); SPECIFIC GRAVITY URINE AUTO 1.011 (1.002-1.035); SQUAMOUS EPITHELIAL CELL UR AU 0 /HPF (0-6); UROBILINOGEN, URINE AUTO 0.2 mg/dL (0.0-2.0); WBC, URINE AUTO 0 /HPF (0-3)
== END ==
LOC: M SMT 13:02
PROVIDERS: ATTEND Nurse Practitioner Women's Health
DX: N39.0 Urinary tract infection, site not specified (principal)

== ENCOUNTER → 2020-02-15 | Outpatient (CLI) | payer OTHER ==
[~2020-02-15] MED LIST changes: +GASTROGRAFIN SOLUTION 30ML (Q9963) As Ordered ONE; +ISOVUE-370 76% 100ML VIAL (Q9967) As Ordered ONE; -TRAZ-163 PO; +TRAZ-257 PO
--- NOTE | 2020-02-15 15:22 | REP ---
Clinical: Abdominal pain. Possible incisional hernia. Technique: Axial contrast enhanced images from the lung bases to the pubic symphysis using oral (per protocol) and 100 ml Isovue 370 intravenous contrast material with coronal and sagittal re-formations. Comparison: 09/14/2017 Findings: Lung bases are clear. Visualized heart and pericardium normal. Liver, spleen, pancreas, bilateral adrenal glands and kidneys are essentially normal. Incidental 5 mm simple left renal cyst noted. Evidence of prior cholecystectomy. The enteric system is without obstruction or acute inflammatory process. Pelvis demonstrates normal bladder and evidence of prior hysterectomy. No ascites. No free air. No adenopathy. Abdominal aorta without aneurysm or dissection. No obvious hernia identified. Musculoskeletal structures are intact without acute osseous abnormality. Impression: 1. No acute abdominopelvic pathology appreciated. 2. No evidence for obvious incisional hernia. 3. 5 mm simple left renal cyst. 4. Evidence of prior cholecystectomy and hysterectomy. Electronically Signed by Tyree Hernandez MD 02/15/2020 03:14 P
== END ==
LOC: M RAD 13:01
PROVIDERS: ATTEND Surgery
DX: N28.1 Cyst of kidney, acquired (principal); K43.2 Incisional hernia without obstruction or gangrene
CPT/HCPCS: 74177; Q9963; Q9967

== ENCOUNTER → 2020-02-27 | Outpatient (REF) | payer OTHER ==
[~2020-02-27] MED LIST changes: -GASTROGRAFIN SOLUTION 30ML (Q9963) As Ordered ONE; -ISOVUE-370 76% 100ML VIAL (Q9967) As Ordered ONE
[2020-02-27 14:05] LABS: APPEARANCE, URINE CLOUDY (CLEAR); BACTERIA, URINE AUTO 1+ (NEGATIVE); BILIRUBIN, URINE AUTO NEGATIVE (NEGATIVE); BLOOD, URINE BLOOD 3+ (NEGATIVE); COLOR, URINE YELLOW (YELLOW); GLUCOSE, URINE (UA) AUTO NEGATIVE (NEGATIVE); KETONE, URINE AUTO NEGATIVE (NEGATIVE); LEUKOCYTE ESTERASE, URINE AUTO 2+ (NEGATIVE); MUCUS, URINE SMALL (NEGATIVE); NITRITE, URINE AUTO NEGATIVE (NEGATIVE); PROTEIN, URINE AUTO NEGATIVE (NEGATIVE); RBC, URINE AUTO TNTC /HPF (0-3); SPECIFIC GRAVITY URINE AUTO 1.013 (1.002-1.035); SQUAMOUS EPITHELIAL CELL UR AU 0 /HPF (0-6); UROBILINOGEN, URINE AUTO 0.2 mg/dL (0.0-2.0); WBC, URINE AUTO 182 /HPF (0-3)
== END ==
LOC: M SMT 13:34
PROVIDERS: ATTEND Nurse Practitioner Women's Health
DX: R30.0 Dysuria (principal)

== ENCOUNTER → 2020-05-23 | Outpatient (CLI) | payer OTHER ==
--- NOTE | 2020-05-23 15:23 | REPMRS ---
Patient History The patient states she had a clinical breast exam in May 2020. No known family history of cancer. Digital Woman Screen Mammo: May 23, 2020 - Exam #: [id number] Bilateral CC and MLO view(s) were taken. Technologist: Stephanie Amaral Technologist Prior study comparison: December 20, 2018, bilateral digital mammo screening bilat, performed at [facility]. December 18, 2017, bilateral digital mammo screening bilat, performed at [facility]. August 15, 2016, bilateral digital mammo screening bilat, performed at [facility]. FINDINGS: The breast tissue is heterogeneously dense. This may lower the sensitivity of mammography. The Volpara volumetric breast density category is: C. There are dispersed microcalcifications in the left breast in dense breast stroma unchanged from multiple prior studies. There is a moderate amount of heterogeneously dense fibroglandular tissue which is fairly symmetric. There is no interval development of dominant mass, architectural distortion, or grouped microcalcification typical of malignancy. There has been no change in the appearance of the mammogram from the prior studies. 3-D tomosynthesis shows no additional findings. Assessment: BI-RADS/ACR category 2 mammogram. Benign Findings. Recommendation Routine screening mammogram of both breasts in 1 year (for women over age 40). This patient's Lifetime Breast Cancer RIsk is estimated at 6.6 %. This mammogram was interpreted with the aid of an FDA-approved computer-aided dectection system. Electronically Signed By: Nikolai Gray MD 05/23/20 [id number]
== END ==
LOC: M WHC 13:50
PROVIDERS: ATTEND Advanced Practice Midwife
DX: Z12.31 Encounter for screening mammogram for malignant neoplasm of breast (principal)

== ENCOUNTER → 2020-06-07 | Outpatient (CLI) | payer OTHER ==
[~2020-06-07] MED LIST changes: +PANT40TA29 PO; -PANT40TA3 PO
--- NOTE | 2020-06-07 17:35 | REP ---
REASON FOR EXAM: Followup. COMPARISON: Multiple, the latest is 06/08/2019, a Lung-RADS category 2 screening exam. There is no mediastinal or hilar adenopathy. There are no pleural or pericardial effusions. The imaged upper abdomen and imaged osseous structures are within normal limits. Evaluation of the lung fernández shows stable right upper lobe nodules and pleuroparenchymal scarring without evidence of a new abnormal nodule, mass, or opacity. IMPRESSION: Stable CT examination of the chest. Lung-RADS category 2 exam. Electronically Signed by Leonidas Obregon DO 06/08/2020 11:21 A
== END ==
LOC: M RAD 14:14
PROVIDERS: ATTEND Nurse Practitioner Adult Health
DX: R91.8 Other nonspecific abnormal finding of lung field (principal)

== ENCOUNTER → 2020-07-02 | Outpatient (CLI) | payer OTHER | LOC: M RAD 14:55 | PROVIDERS: ATTEND Nurse Practitioner Family | DX: R10.84 Generalized abdominal pain (principal); Z90.49 Acquired absence of other specified parts of digestive tract ==

== ENCOUNTER → 2020-07-02 | Outpatient (REF) | payer OTHER ==
[2020-08-01 20:15] LABS: BASO % 0.4 % (0.0-1.0); EOS # 0.2 10^3/uL (0.0-0.5); EOS % 2.6 % (0.0-3.0); HEMATOCRIT 38.4 % (36.0-47.0); HEMOGLOBIN 12.5 g/dl (12.0-15.5); LYMPH # 2.7 10^3/uL (1.5-5.0); LYMPH % 30.5 % (24.0-44.0); MEAN CORPUSCULAR HGB CONC 32.6 g/dl (32.0-36.5); MEAN CORPUSCULAR VOLUME 95.3 fl (80.0-96.0); MONO # 0.6 10^3/uL (0.0-0.8); MONO % 6.7 % (0.0-5.0); NEUTROPHILS # 5.3 10^3/uL (1.5-8.5); NEUTROPHILS % 59.4 % (36.0-66.0); PLATELET COUNT, AUTOMATED 174 10^3/uL (150-450); RED BLOOD COUNT 4.03 10^6/uL (4.00-5.40)
[2020-08-01 20:18] LABS: ERYTHROCYTE SEDIMENTATION RATE 20 mm/hr (0-30)
[2020-09-20 09:10] LABS: ALBUMIN 4.1 GM/DL (3.2-5.2); ALT/SGPT 22 U/L (12-78); AMYLASE 41 U/L (25-115); BILIRUBIN,TOTAL 0.3 MG/DL (0.2-1.0); BLOOD UREA NITROGEN 10 MG/DL (7-18); CALCIUM LEVEL 8.9 MG/DL (8.8-10.2); CARBON DIOXIDE LEVEL 30 MEQ/L (21-32); CHLORIDE LEVEL 107 MEQ/L (98-107); CREATININE FOR GFR 0.83 MG/DL (0.55-1.30); GLOMERULAR FILTRATION RATE > 60.0 (>45); GLUCOSE, FASTING 83 MG/DL (70-100); LIPASE 155 U/L (73-393); POTASSIUM SERUM 3.9 MEQ/L (3.5-5.1); SODIUM LEVEL 141 MEQ/L (136-145); TOTAL PROTEIN 7.7 GM/DL (6.4-8.2)
== END ==
LOC: M LAB REF 10:15 → M LABWUC 10:15
PROVIDERS: ATTEND Physician Assistant
DX: R10.84 Generalized abdominal pain (principal)

== ENCOUNTER → 2020-08-24 | Outpatient (CLI) | payer OTHER ==
[2020-08-24 10:27] LABS: ALBUMIN 3.6 GM/DL (3.2-5.2); ALT/SGPT 19 U/L (12-78); BILIRUBIN,TOTAL 0.3 MG/DL (0.2-1.0); BLOOD UREA NITROGEN 12 MG/DL (7-18); CALCIUM LEVEL 8.6 MG/DL (8.8-10.2); CARBON DIOXIDE LEVEL 31 MEQ/L (21-32); CHLORIDE LEVEL 108 MEQ/L (98-107); CHOLESTEROL LEVEL 158 MG/DL (<200); CHOLESTEROL RISK RATIO 3.853 (<5); GLOMERULAR FILTRATION RATE > 60.0 (>45); GLUCOSE, FASTING 104 MG/DL (70-100); HDL CHOLESTEROL 41 MG/DL (>40); LDL CHOLESTEROL 88 MG/DL (<100); MAGNESIUM LEVEL 2.2 MG/DL (1.8-2.4); NON-HDL-C 117 MG/DL; POTASSIUM SERUM 4.4 MEQ/L (3.5-5.1); SODIUM LEVEL 141 MEQ/L (136-145); TOTAL PROTEIN 7.1 GM/DL (6.4-8.2); TRIGLYCERIDES LEVEL 144 MG/DL (<150)
[2020-08-24 10:34] LABS: TOTAL 25(OH) VITAMIN D 31.2 NG/ML (30.0-100.0)
== END ==
LOC: M WUC 08:21
PROVIDERS: ATTEND Nurse Practitioner Family
DX: E78.2 Mixed hyperlipidemia (principal); K21.9 Gastro-esophageal reflux disease without esophagitis; E55.9 Vitamin D deficiency, unspecified

== ENCOUNTER 2020-09-17 16:02 | Emergency (ER) | payer OTHER ==
[~2020-09-17] VITALS: Ht 162.6 cm; Wt 62.5 kg
[2020-09-17 16:02] VITALS: BP 135/68
[2020-09-17] MEDS ORDERED: diphenhydrAMINE 50MG/ML VIAL (J1200) IV ONE (17:30)
[2020-09-17] MEDS ORDERED: NS 1,000 ML IV ONE (17:30)
[2020-09-17] MEDS ORDERED: ONDANSETRON 4MG/2ML VIAL IV ONE (17:30)
--- NOTE | 2020-09-17 17:56 | REPVR ---
PROCEDURE INFORMATION: Exam: CT Head Without Contrast Exam date and time: 09/17/2020 5:44 PM Age: 60 years old Clinical indication: Pain; Headache; Additional info: Severe posterior headache/neck pain TECHNIQUE: Imaging protocol: Computed tomography of the head without contrast. Axial and coronal reformatted images were created and reviewed. Radiation optimization: All CT scans at this facility use at least one of these dose optimization techniques: automated exposure control; mA and/or kV adjustment per patient size (includes targeted exams where dose is matched to clinical indication); or iterative reconstruction. COMPARISON: CT Head without contrast 01/13/2019 11:12 AM FINDINGS: Brain: No CT evidence of acute intracranial hemorrhage or acute territorial infarction. No significant mass effect or midline shift. Basal cisterns patent. Cerebral ventricles: Prominence of the cortical sulci, cisterns and ventricular system, consistent with cerebral and cerebellar volume loss, similar to prior. Bones/joints: No acute osseous abnormality. Paranasal sinuses: Unremarkable. No fluid levels. Mastoid air cells: Grossly unremarkable. Soft tissues: Grossly unremarkable. IMPRESSION: 1. No CT evidence of acute intracranial pathology. 2. Additional findings, as above. Electronically signed by: Baudilio Saleem On 09/17/2020 17:56:46 PM
--- NOTE | 2020-09-17 18:03 | REPVR ---
PROCEDURE INFORMATION: Exam: CT Cervical Spine Without Contrast Exam date and time: 09/17/2020 5:44 PM Age: 60 years old Clinical indication: Neck pain; Additional info: Severe posterior headache/neck pain TECHNIQUE: Imaging protocol: Computed tomography images of the cervical spine without contrast. Axial, coronal and sagittal reformatted images were created and reviewed. Radiation optimization: All CT scans at this facility use at least one of these dose optimization techniques: automated exposure control; mA and/or kV adjustment per patient size (includes targeted exams where dose is matched to clinical indication); or iterative reconstruction. COMPARISON: CT Spine,cervical w/o contrast 08/03/2018 1:25 PM FINDINGS: Bones/joints: Osteopenia. Straightening of the normal cervical lordosis. No CT evidence of acute fracture, dislocation or subluxation. Alignment anatomic. Dextroscoliosis. Vertebral body heights maintained. Discs/Spinal canal/Neural foramina: Mild multilevel degenerative changes, characterized by disc space narrowing, osteophytosis and uncovertebral and facet joint hypertrophy. Mild multilevel spinal canal and neural foraminal narrowing. Soft tissues: Grossly unremarkable. Lungs: Grossly unremarkable. IMPRESSION: 1. No CT evidence of acute cervical spine traumatic injury. 2. Additional findings, as above. Electronically signed by: Baudilio Saleem On 09/17/2020 18:03:03 PM
[2020-09-17 18:18] LABS: BASO % 0.3 % (0.0-1.0); EOS # 0.1 10^3/uL (0.0-0.5); EOS % 1.8 % (0.0-3.0); HEMATOCRIT 36.3 % (36.0-47.0); HEMOGLOBIN 11.6 g/dl (12.0-15.5); LYMPH # 2.5 10^3/uL (1.5-5.0); LYMPH % 32.4 % (24.0-44.0); MEAN CORPUSCULAR HEMOGLOBIN 30.2 pg (27.0-33.0); MEAN CORPUSCULAR VOLUME 94.5 fl (80.0-96.0); MONO # 0.5 10^3/uL (0.0-0.8); MONO % 5.8 % (0.0-5.0); NEUTROPHILS # 4.6 10^3/uL (1.5-8.5); NEUTROPHILS % 59.3 % (36.0-66.0); PLATELET COUNT, AUTOMATED 164 10^3/uL (150-450); RED BLOOD COUNT 3.84 10^6/uL (4.00-5.40); WHITE BLOOD COUNT 7.7 10^3/uL (4.0-10.0)
[2020-09-17 18:28] LABS: INR 0.99; PROTHROMBIN TIME 13.3 SECONDS (12.5-14.3)
[2020-09-17 18:49] LABS: ALBUMIN 4.2 GM/DL (3.2-5.2); ALT/SGPT 21 U/L (12-78); BILIRUBIN,DIRECT < 0.1 MG/DL (0.0-0.2); BILIRUBIN,TOTAL 0.4 MG/DL (0.2-1.0); BLOOD UREA NITROGEN 9 MG/DL (7-18); CALCIUM LEVEL 8.9 MG/DL (8.8-10.2); CARBON DIOXIDE LEVEL 28 MEQ/L (21-32); CHLORIDE LEVEL 107 MEQ/L (98-107); CK-MB VALUE MASS < 1.0 NG/ML (<3.6); CPK CREATINE PHOSPHOKINASE 144 U/L (26-192); CREATININE FOR GFR 0.92 MG/DL (0.55-1.30); FREE T4 1.06 NG/DL (0.76-1.46); GLOMERULAR FILTRATION RATE > 60.0 (>45); GLUCOSE, FASTING 81 MG/DL (70-100); MAGNESIUM LEVEL 2.1 MG/DL (1.8-2.4); MB/CK RELATIVE INDEX 0.69 (< OR =4); POTASSIUM SERUM 3.8 MEQ/L (3.5-5.1); SODIUM LEVEL 141 MEQ/L (136-145); TOTAL PROTEIN 7.9 GM/DL (6.4-8.2); TROPONIN I < 0.02 NG/ML (< 0.10)
== END 2020-09-17 19:35 | disposition home or self-care (01) ==
LOC: M ED 16:02
DX: G43.909 Migraine, unspecified, not intractable, without status migrainosus (principal); M50.30 Other cervical disc degeneration, unspecified cervical region; E78.5 Hyperlipidemia, unspecified; K21.9 Gastro-esophageal reflux disease without esophagitis; F17.200 Nicotine dependence, unspecified, uncomplicated; F41.9 Anxiety disorder, unspecified; F32.9 Major depressive disorder, single episode, unspecified; Z79.899 Other long term (current) drug therapy; Z88.1 Allergy status to other antibiotic agents
CPT/HCPCS: 70450; 72125; 80048; 80076; 82550; 82553; 83735; 84439; 84443; 84484; 85025; 85610; 96374; 96375; 99284; J1200; J2405

== ENCOUNTER → 2020-09-18 | Outpatient (CLI) | payer OTHER ==
--- NOTE | 2020-09-19 04:56 | REP ---
INDICATION: RENAL CYST / HX UTI COMPARISON: 11/14/2019 TECHNIQUE: Real time bowie scale ultrasound examination using curved array transducer. FINDINGS: The bilateral kidneys are relatively normal in reniform shape and demonstrate increased central sinus fat along with echogenic intrarenal vasculature consistent with age related medical renal disease. Right kidney measures 10.7 x 5.1 x 4.3 cm without hydronephrosis, cystic or renal mass lesion. Left kidney measures 10.8 x 5.0 x 5.1 cm and includes 6 mm upper pole cyst versus dilated calyx without hydronephrosis or renal mass lesion. Bladder is normal in appearance without wall thickening or mass lesion. Bilateral ureteral jets are identified. Prevoid bladder measures 5.7 x 8.1 x 5.2 cm (155 cc). Postvoid bladder measures 3.3 x 1.4 x 0.6 cm (2 cc). Postvoid residual in close 1.3%. IMPRESSION: 1. Kidneys demonstrate age-related changes with small 6 mm left renal cyst versus dilated calyx. 2. Bladder is normal. <Electronically signed by Tyree Hernandez > 09/19/20 [id number]
--- NOTE | 2020-09-19 04:57 | REP ---
INDICATION: RENAL CYST / HX UTI COMPARISON: None TECHNIQUE: Real time B-mode ultrasound examination using curved array transducer. FINDINGS: Bladder is normal in appearance without wall thickening or mass lesion. Bilateral ureteral jets are identified. Prevoid bladder measures 5.7 x 8.1 x 5.2 cm (155 cc). Postvoid bladder measures 3.3 x 1.4 x 0.6 cm (2 cc). Postvoid residual in close 1.3%. IMPRESSION: 1. Normal bladder ultrasound. <Electronically signed by Tyree Hernandez > 09/19/20 [id number]
== END ==
LOC: M RAD 08:27
PROVIDERS: ATTEND Nurse Practitioner Women's Health
DX: N28.1 Cyst of kidney, acquired (principal); Z87.440 Personal history of urinary (tract) infections

== ENCOUNTER → 2021-01-21 | Outpatient (CLI) | payer OTHER ==
--- NOTE | 2021-01-21 14:22 | REPVR ---
PROCEDURE INFORMATION: Exam: MR Angiogram Head Without Contrast, Arteries Exam date and time: 01/21/2021 11:23 AM Age: 60 years old Clinical indication: Condition or disease; Aneurysm, cerebral; Patient HX: F/u; Additional info: Cerebral aneurysm, nonruptured TECHNIQUE: Imaging protocol: MR angiogram head without contrast. Exam focused on the arteries. COMPARISON: MRA BRAIN W/O CONTRAST 01/13/2019 4:04 PM FINDINGS: ANTERIOR CIRCULATION: Right internal carotid artery: Again noted is a 2 mm aneurysm or penetrating ulcer arising from the medial aspect of the anterior turn of the right cavernous carotid artery. Right middle cerebral artery: No occlusion or significant stenosis. No aneurysm. Right anterior cerebral artery: No occlusion or significant stenosis. No aneurysm. Left internal carotid artery: Intracranial segment is patent with no significant stenosis. No aneurysm. Left middle cerebral artery: No occlusion or significant stenosis. No aneurysm. Left anterior cerebral artery: No occlusion or significant stenosis. No aneurysm. POSTERIOR CIRCULATION: Right vertebral artery: No occlusion or significant stenosis. No aneurysm. Left vertebral artery: No occlusion or significant stenosis. No aneurysm. Basilar artery: No occlusion or significant stenosis. No aneurysm. Right posterior cerebral artery: No occlusion or significant stenosis. No aneurysm. Left posterior cerebral artery: There is persistent origin of the left posterior cerebral artery. 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 Electronically signed by: Ronn Calvillo On 01/21/2021 14:22:42 PM
== END ==
LOC: M RAD 10:51
PROVIDERS: ATTEND Neurological Surgery
DX: I72.0 Aneurysm of carotid artery (principal)

== ENCOUNTER → 2021-03-12 | Outpatient (CLI) | payer OTHER ==
[2021-03-12 10:52] LABS: ALBUMIN 3.7 GM/DL (3.2-5.2); ALT/SGPT 19 U/L (12-78); BILIRUBIN,TOTAL 0.2 MG/DL (0.2-1.0); BLOOD UREA NITROGEN 13 MG/DL (7-18); CARBON DIOXIDE LEVEL 31 MEQ/L (21-32); CHLORIDE LEVEL 109 MEQ/L (98-107); GLOMERULAR FILTRATION RATE > 60.0 (>45); GLUCOSE, FASTING 93 MG/DL (70-100); POTASSIUM SERUM 4.1 MEQ/L (3.5-5.1); SODIUM LEVEL 143 MEQ/L (136-145); TOTAL PROTEIN 7.1 GM/DL (6.4-8.2)
[2021-03-12 11:04] LABS: TOTAL 25(OH) VITAMIN D 27.8 NG/ML (30.0-100.0)
== END ==
LOC: M WUC 08:10
PROVIDERS: ATTEND Nurse Practitioner Family
DX: E78.2 Mixed hyperlipidemia (principal); E55.9 Vitamin D deficiency, unspecified

== ENCOUNTER 2021-03-21 16:38 | Emergency (ER) | payer OTHER ==
[~2021-03-21] VITALS: Ht 162.6 cm; Wt 63.3 kg
[2021-03-21] MEDS ORDERED: ESCITALOPRAM (16:51)
[2021-03-21] MEDS ORDERED: DULO1CAP5 (16:51)
[2021-03-21] MEDS ORDERED: ISOVUE-370 76% 100ML VIAL As Ordered ONE (18:04)
[2021-03-21] MEDS ORDERED: KETOROLAC 30 MG/ML 1ML VIAL IV ONE (18:05)
[2021-03-21] MEDS ORDERED: ONDANSETRON 4MG/2ML VIAL IV ONE (18:05)
[2021-03-21 18:09] LABS: BASO % 0.2 % (0.0-1.0); EOS # 0.2 10^3/uL (0.0-0.5); EOS % 1.9 % (0.0-3.0); HEMATOCRIT 39.1 % (36.0-47.0); HEMOGLOBIN 12.6 g/dl (12.0-15.5); LYMPH # 2.3 10^3/uL (1.5-5.0); MEAN CORPUSCULAR HEMOGLOBIN 30.6 pg (27.0-33.0); MEAN CORPUSCULAR HGB CONC 32.2 g/dl (32.0-36.5); MEAN CORPUSCULAR VOLUME 94.9 fl (80.0-96.0); MONO # 0.4 10^3/uL (0.0-0.8); MONO % 4.4 % (2.0-8.0); NEUTROPHILS # 6.6 10^3/uL (1.5-8.5); NEUTROPHILS % 69.1 % (36.0-66.0); PLATELET COUNT, AUTOMATED 207 10^3/uL (150-450); RED BLOOD COUNT 4.12 10^6/uL (4.00-5.40); WHITE BLOOD COUNT 9.5 10^3/uL (4.0-10.0)
[2021-03-21] MEDS ORDERED: NS 1,000 ML IV ONE (18:20)
--- NOTE | 2021-03-21 18:39 | REPVR ---
PROCEDURE INFORMATION: Exam: CT Abdomen And Pelvis With Contrast Exam date and time: 03/21/2021 5:20 PM Age: 61 years old Clinical indication: Abdominal pain; Additional info: Abdominal pain; R/O appy vs umbilical hernia TECHNIQUE: Imaging protocol: Computed tomography of the abdomen and pelvis with contrast. Radiation optimization: All CT scans at this facility use at least one of these dose optimization techniques: automated exposure control; mA and/or kV adjustment per patient size (includes targeted exams where dose is matched to clinical indication); or iterative reconstruction. Contrast material: ISOVUE 370; Contrast volume: 100 ml; Contrast route: INTRAVENOUS (IV); COMPARISON: CT ABD PELVIS WITH CONTRAST 02/15/2020 3:02 PM FINDINGS: Liver: There is a diffuse decrease in hepatic parenchymal density, consistent with steatosis. Gallbladder and bile ducts: There has been a cholecystectomy. Pancreas: Normal. No ductal dilation. Spleen: Normal. No splenomegaly. Adrenal glands: Normal. No mass. Kidneys and ureters: Small simple left renal cysts measure up to 6 mm. No follow-up suggested. Stomach and bowel: Mobile cecum. Mural stratification in the right and proximal transverse colon without significant pericolonic inflammatory changes. Clinical correlation to exclude colitis suggested. Appendix: The appendix is within normal limits. There is no appendiceal enlargement, periappendiceal inflammatory changes or abscess. Intraperitoneal space: Unremarkable. No free air. No significant fluid collection. Vasculature: The aortoiliac vessels demonstrate moderate atherosclerotic calcification. Lymph nodes: Unremarkable. No enlarged lymph nodes. Urinary bladder: Unremarkable as visualized. Reproductive: There has been a hysterectomy. Bones/joints: Unremarkable. No acute fracture. Soft tissues: Unremarkable. IMPRESSION: 1. There is a diffuse decrease in hepatic parenchymal density, consistent with steatosis. 2. There has been a cholecystectomy. 3. There has been a hysterectomy. 4. The appendix is within normal limits. There is no appendiceal enlargement, periappendiceal inflammatory changes or abscess. 5. Mural stratification in the right and proximal transverse colon without significant pericolonic inflammatory changes. Clinical correlation to exclude colitis suggested. COMMENTS: Consistent with the [employer]'s Incidental Findings Committee white paper (J Am Maxi Radiol 2018): Any incidental renal lesion less than 1 cm or classified as too small to characterize, or any incidental cystic renal lesion characterized as simple-appearing, is likely benign. No follow-up imaging is recommended for these lesions per consensus recommendations based on imaging criteria. Electronically signed by: Philippe Parker On 03/21/2021 18:39:17 PM
[2021-03-21 18:44] LABS: ALBUMIN 4.4 GM/DL (3.2-5.2); BILIRUBIN,DIRECT 0.1 MG/DL (0.0-0.2); BILIRUBIN,TOTAL 0.4 MG/DL (0.2-1.0); TOTAL PROTEIN 7.9 GM/DL (6.4-8.2)
[2021-03-21 19:22] VITALS: BP 100/51
== END 2021-03-21 19:40 | disposition home or self-care (01) ==
LOC: M ED 16:38
DX: K52.9 Noninfective gastroenteritis and colitis, unspecified (principal); E78.5 Hyperlipidemia, unspecified; F33.9 Major depressive disorder, recurrent, unspecified; F41.9 Anxiety disorder, unspecified; Z79.899 Other long term (current) drug therapy; Z88.8 Allergy status to other drugs, medicaments and biological substances; F17.210 Nicotine dependence, cigarettes, uncomplicated
CPT/HCPCS: 74177; 80047; 80076; 83690; 85025; 96361; 96374; 96375; 99284; J1885; J2405; Q9967

== ENCOUNTER → 2021-04-23 | Outpatient (CLI) | payer OTHER ==
[~2021-04-23] MED LIST changes: +DULO1CAP5; +ESCITALOPRAM
--- NOTE | 2021-04-25 00:18 | ECWPNPC ---
PATIENT NAME: KAUSHIK BENNETT : 1960 GENDER: FEMALE VISIT DATE: 04/23/2021 DISCHARGE DATE: 04/23/21907 VISIT LOCKED DATE TIME: PHYSICIAN: JELENA MCCORD PHYSICIAN PAGER NO: ACTIVE RESOURCE: JELENA MCCORD REASON FOR APPOINTMENT 1. ABDOMINAL TRIGGER POINT INJECTIONS. HISTORY OF PRESENT ILLNESS DEPRESSION SCREENING: PHQ-2 (2015 EDITION) LITTLE INTEREST OR PLEASURE IN DOING THINGS?DECLINED TO SPECIFY FEELING DOWN, DEPRESSED, OR HOPELESS?DECLINED TO SPECIFY TOTAL SCORE0 GENERAL: HPI 61-YEAR-OLD FEMALE IN FOR INITIAL PAIN CONSULT REGARDING ABDOMINAL TRIGGER POINT INJECTIONS. PATIENT HAS A HISTORY OF ABDOMINAL PAIN STATUS POST MULTIPLE HERNIA SURGERIES WITH MESH PLACEMENT. SHE RATES HER PAIN CURRENTLY AT A 5 OUT OF 10 AND DESCRIBES IT CONTINUOUS AND FEELS LIKE A PRESSURE.. - -. FALL RISK SCREENING: SCREENING : NO FALLS REPORTED IN THE LAST YEAR. PAIN SCREENING: PATIENT HAS A COMPLAINT OF ACUTE OR CHRONIC PAIN :YES LOCATION OF PAIN:ABDOMEN INTENSITY OF PAIN (SCALE OF 1 TO 10):5 WHAT DOES YOUR PAIN FEEL LIKE:CONTINOUS, OTHER PRESSURE DURATION:CONTINOUS, CONSTANT, AWAKENS FROM SLEEP PAIN IS INCREASED BY:ACTIVITIES, PROLONGED STANDING PAIN IS DECREASED BY:USE OF PAIN MEDICATIONS, OTHERS HEATING PAD, TYLENOL NURSING NOTE: - -. PAIN CENTER INTAKE QUESTIONS: DO YOU HAVE A HISTORY OF MRSA? :NO DO YOU TAKE A BLOOD THINNERS? :NO DO YOU HAVE ANY BLEEDING DISORDERS? :NO ANY NEW NUMBNESS OR WEAKNESS IN YOUR LEGS OR ARMS? :NO ANY PACEMAKER,DEFIBRILLATOR, OR DORSAL COLUMN STIMULATOR? :NO DO YOU HAVE ANY RASHES OR OPEN SORES? :NO ARE YOU ALLERGIC TO IV DYE? :NO ARE YOU DIABETIC? :NO ANY NEW PROBLEMS WITH YOUR MEDICATIONS? :NO HAVE YOU RECEIVED A VACCINE IN THE PAST 30 DAYS? :NO SECOND COVID VACCINATION 03/08/2021 DO YOU PLAN TO RECEIVE A VACCINE IN THE NEXT 21 DAYS? :NO DO YOU NEED ANY PRESCRIPTION? :NO DO YOU TAKE ANY IMMUNOSUPPRESSIVE MEDICATIONS? :NO IS THERE A CHANCE YOU COULD BE ? :NO ARE YOU BREAST FEEDING? :NO CURRENT MEDICATIONS TAKING KLONOPIN 2 MG TABLET 1 TAB ORALLY TWICE DAILY, NOTES: LITTEL TAKING HYDROXYZINE HCL 50 MG TABLET 1 TABLET NEEDED ORALLY EVERY 6 HRS TAKING TRAZODONE HCL 100 MG TABLET 2 TABLET AT BEDTIME ORALLY DAILY AT BEDTIME TAKING MULTI VITAMIN - TABLET 1 TABLET ORALLY ONCE A DAY TAKING COLACE 100 MG CAPSULE 1 CAPSULE NEEDED ORALLY DAILY TAKING GABAPENTIN 100 MG CAPSULE 1 CAPSULE ORALLY THREE TIMES DAILY TAKING CALCIUM + D3 600-200 MG-UNIT TABLET 1 TAB ORALLY DAILY WITH MEAL TAKING PRAVASTATIN SODIUM 40 MG TABLET 1 TABLET ORALLY ONCE A DAY TAKING PROTONIX 40 MG TABLET DELAYED RELEASE 1 TAB ORALLY TWICE DAILY TAKING ESCITALOPRAM OXALATE 10 MG TABLET 1 TABLET ORALLY ONCE A DAY NOT-TAKING ZOLOFT 100 MG TABLET [address] LAKHANI ORALLY ONCE A DAY, NOTES: LITTEL NOT-TAKING FIBERCON 625 MG TABLET 1 TABLET ORALLY DAILY NEEDED NOT-TAKING VITAMIN D 2000 UNIT CAPSULE 1 CAPSULE WITH MEAL ORALLY ONCE A DAY NOT-TAKING ESTRACE 0.1 MG/GM CREAM 2 GRAMS VAGINAL ONCE A DAY, NOTES: INSERT 2 GRAMS IN VAGINA AT NIGHT FOR 2 WEEKS THEN 1 GRAM VAGINALLY 2-3 TIMES PER WEEK. NOT-TAKING NICORETTE 2 MG GUM 1 PIECE NEEDED MOUTH/THROAT 24 TIME(S) A DAY NOT-TAKING NICOTINE 21 MG/24HR PATCH 24 HOUR 1 PATCH TO SKIN TRANSDERMAL ONCE A DAY MEDICATION LIST REVIEWED AND RECONCILED WITH THE PATIENT PAST MEDICAL HISTORY HEADACHES/ MIGRAINES ESOPHAGEAL REFLUX ANXIETY IBS DEPRESSION, COMPLICATED BEREAVEMENT - [facility] FIBROCYSTIC BREAST DISEASE ANEMIA MIXED HYPERLIPIDEMIA VITAMIN D DEFICIENCY PLANTAR FASCIITIS SMOKER CERVICAL DDD - NCOG OA HIP AND BACK - NCOG BRAIN ANEURYSM - [facility] PILMONARY NODULE - [facility] ALLERGIES VIIBRYD (FOR ALLERGY USE ONLY): CONFUSION,ANXIETY - ALLERGY ATORVASTATIN CALCIUM: CONSTIPATION, HEADACHES - SIDE EFFECTS CHANTIX: ANXIETY - SIDE EFFECTS SURGICAL HISTORY BREAST LUMP L X 2 2000 GALL BLADDER 1983 COLONOSCOPY 08-26 BREAST BIOPSY L 1-05 EGD 08-26 ENDOMETRIAL ABLATION 3-10 HYSTERECTOMY LAPS ASSISTED VAGINAL WITH BSO - MUSTAPHA 09/27/10 LAPAROSCOPY, LYSIS OF ADHESIONS - JOY 10/09/10 ENDOMETRIAL BIOPSY BLADDER REPAIR, DR SANDS 04-27-13 HERNIA REPAIR X 5, DR PRASAD 08-26-13 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 PRASAD 05/19/19 CYSTOSCOPY 12/15/2019 HYSTERECTOMY FAMILY HISTORY FATHER: 82 YRS, CHF, CVA, SC, BLOOD CLOT, AORTIC VALVE REPLACEMENT, AORTIC ANEURYSM MOTHER: ALIVE 75 YRS, TACHYCARDIA, DIABETES, HTN SIBLINGS: HTN, HYPERLIPIDEMIA, BR WITH CAD AND STENTS @ AGE 48 SON(S): , ACCIDENTAL 2 BROTHER(S) , 1 SISTER(S) - HEALTHY. 4 SON(S) , 1 DAUGHTER(S) - HEALTHY. DENIES FAMILY HX OF B/C/O CANCERS. SOCIAL HISTORY GENERAL: TOBACCO USE ARE YOU A:CURRENT SMOKER ARE YOU INTERESTED IN QUITTING?NOT READY TO QUIT COUNSELED THE PATIENT ON SMOKING EFFECTS, EDUCATION [id number]/01/2021 HOW MANY CIGARETTES A DAY DO YOU SMOKE?6-10 HOW SOON AFTER YOU WAKE UP DO YOU SMOKE YOUR FIRST CIGARETTE?6-30 MIN HOW OFTEN DO YOU SMOKE CIGARETTES?EVERY DAY PATIENT COUNSELED ON THE DANGERS OF TOBACCO USE AND URGED TO QUIT:10/19/2019 SMOKING CESSATION INFORMATION GIVEN10/19/2019 LATEX QUESTIONNAIRE LATEX ALLERGY : HAVE YOU EVER DEVELOPED ANY TYPE OF REACTION AFTER HANDLING LATEX PRODUCTS SUCH RUBBER GLOVES, CONDOMS, DIAPHRAGMS, BALLOONS, SOCKS, OR UNDERWEAR?NO LATEX ALLERGY : HAVE YOU EVER DEVELOPED ANY TYPE OF REACTION DURING OR AFTER DENTAL APPOINTMENT, VAGINAL/RECTAL EXAMINATION, SURGICAL PROCEDURE, OR ANY OTHER EXPOSURE?NO LATEX RISK : HAVE YOU EVER HAD ANY DIFFICULTY BREATHING OR HIVES AFTER EATING OR HANDLING ANY FRUITS, OR VEGETABLES; SUCH KIWI, BANANAS, STONE FRUITS, OR CHESTNUTSNO LATEX RISK : DO YOU HAVE A PREVIOUS PERSONAL HISTORY OF MORE THAN NINE SURGERIES, SPINA BIFIDA, OR REPEATED CATHERIZATIONS? YES - PLEASE INDICATE : > 9 SURGERIES LATEX RISK : ARE YOU FREQUENTLY EXPOSED TO LATEX PRODUCTS IN YOUR OCCUPATION?NO DATE ASKED : 04/23/2021 ALCOHOL USE: NO. ALCOHOL SCREENING DID YOU HAVE A DRINK CONTAINING ALCOHOL IN THE PAST YEAR?YES HOW OFTEN DID YOU HAVE SIX OR MORE DRINKS ON ONE OCCASION IN THE PAST YEAR?NEVER (0 POINTS) HOW MANY DRINKS DID YOU HAVE ON A TYPICAL DAY WHEN YOU WERE DRINKING IN THE PAST YEAR?1 OR 2 (0 POINTS) HOW OFTEN DID YOU HAVE A DRINK CONTAINING ALCOHOL IN THE PAST YEAR?MONTHLY OR LESS (1 POINT) POINTS1 INTERPRETATIONNEGATIVE RECREATIONAL DRUG USE DENIES. CAFFEINE CAFFEINE USE?YES HOW OFTEN AND HOW MUCH? 4 CUPS COFFEE AND DECAF SODA SEXUAL HX HAD SEX IN THE LAST 12 MONTHS (VAGINAL, ORAL, OR ANAL)?YES WITHMEN ONLY HAVE YOU EVER HAD AN STD?NO HIV / HEP-C SCREENING HIV TEST OFFERED TO PATIENT:YES DATE OFFERED:05/23/2020 TEST ACCEPTED:YES HEP-C TEST OFFERED TO PATIENT:YES DATE OFFERED:05/23/2020 TEST ACCEPTED:YES BROCHURE PROVIDED TO PATIENTNO WORSHIP [id number] [employer] LANGUAGES SPOKEN:SETSWANA EDUCATION LEVEL OF EDUCATION:HIGH SCHOOL LEARNING BARRIERS / SPECIAL NEEDS CHANGE FROM LAST VISIT?NO BARRIERS TO LEARNING?NO HEARING IMPAIRED?NO VISION IMPAIRED?YES :CORRECTIVE LENSES COGNITIVELY IMPAIRED?NO READINESS TO LEARN?YES LEARNING PREFERENCES?YES :TAPES/VIDEOS, BOOKLETS, HANDOUTS LEARNING CAPABILITIES PRESENT?YES EMOTIONAL BARRIERS?NO ANXIETY AND DEPRESSION SPECIAL DEVICES?NO EPITAXIAL REACTOR TECHNICIAN NEEDED?NO DOMESTIC VIOLENCE DENIES. OCCUPATION: HOME CARE, WORKING A DAY AND A NIGHT JOB.. DIET: REG ,HIGH FIBER, REDUCING CALORIES. EXERCISE: NO REGULAR EXERCISE. MARITAL STATUS: . OTHERS AT HOME: SPOUSE, ONE SON STILL AT HOME. HOSPITALIZATION/MAJOR DIAGNOSTIC PROCEDURE ILEUS, SMALL BOWEL OBSTRUCTION, ARDS AFTER SURGERY 10/02 SURGERY 07-31-17 SYNCOPAL EPISODE 01/13/2019 REVIEW OF SYSTEMS CONSTITUTIONAL: ANY RECENT FEVER NO . CHILLS NO . WEIGHT CHANGE OF UNKNOWN REASONS NO . MUSCULOSKELETAL: ANY UNUSUAL JOINT PAIN OR SWELLING NOT MENTIONED NO . SYSTEMIC LUPUS NO . ANY NEUROMUSCULAR DISORDER NOT MENTIONED NO . LYME DISEASE NO . GASTROENTEROLOGY: ANY NEW CHANGE IN BOWEL CONTROL? NO . HISTORY OF LIVER DISORDER NOT MENTIONED NO . HISTORY OF UNUSUAL ABDOMINAL PAIN OR CRAMPING NOT MENTIONED NO . NO CONSTIPATION. GENITOURINARY: ANY NEW CHANGE IN BLADDER CONTROL? NO . ANY RENAL/KIDNEY CONDITON NOT MENTIONED NO . NEUROLOGY: HISTORY OF TBI NOT MENTIONED NO . OTHER NEW NUMBNESS OR PAIN PATTERNS NOT MENTIONED NO . NEW ONSET DIZZINESS OR NEUROLOGICAL CHANGES NOT MENTIONED NO . HISTORY OF SEVERE HEADACHES NOT MENTIONED NO . HISTORY OF STROKE OR NEUROLOGICAL DISORDER NOT MENTIONED NO . CARDIOLOGY: HEART SURGERY NO . CONGESTIVE HEART FAILURE/FLUID OVERLOAD NOT MENTIONED NO . HISTORY OF CHEST PAIN,IRREGULAR HEART BEAT NOT MENTIONED NO . RESPIRATORY: SHORTNESS OF BREATH ON EXERTION, WHEEZES, UNUSUAL COUGH NOT MENTIONED NO . ENDOCRINOLOGY: ADRENAL GLAND OR THYROID DISORDERS NOT MENTIONED NO . UNUSUAL URINATION, DIZZINESS OR LETHARGY NOT MENTIONED NO . VITAL SIGNS WT 141.2 LBS, HT 64 IN, BMI 24.23 INDEX, BP 128/60 MM HG, HR 73 /MIN, RR 16 /MIN, TEMP 96.3 F, OXYGEN SAT % 97%, SAFE IN ENV? (Y/N) YES, NA INITIALS DC 08:30, REVIEWED BY: VAHE CULP MA. EXAMINATION GENERAL EXAMINATION: GENERALNO ACUTE DISTRESS, WELL NOURISHED AND HYDRATED. PSYCHAPPROPRIATE MOOD AND AFFECT . LUNGS:CLEAR TO AUSCULTATION BILATERALLY, NO WHEEZES, RHONCHI, RALES. HEART:NO MURMURS, REGULAR RATE AND RHYTHM. ABDOMEN:POINT TENDER BILATERAL ABDOMEN, SURROUNDING SKIN SHOWS NO ERYTHEMA, ECCHYMOSIS, INCREASED WARMTH, AND/OR SKIN ERUPTIONS NOTED. BANDS OF RESTRICTIVE TISSUE NOTED OVER TRIGGER POINTS. ASSESSMENTS MYALGIA, OTHER SITE - M79.18 (PRIMARY) TREATMENT MYALGIA, OTHER SITE PAIN PROCEDURE LOG MED: PAIN NORCO TABLET 5MG/325MG ORALLY HYDROCODONE/ACETAMINOPHEN (ORDERED FOR 05/01/2021) MEDICATION: VALIUM TAB 5MG ORALLY (DIAZEPAM) (ORDERED FOR 05/01/2021) NOTES: 61 YEAR OLD FEMALE IN FOR INITIAL PAIN CONSULT REGARDING ABDOMINAL PAIN. PATIENT WAS REFERRED TO THE CLINIC BY DR. AGUDELO FOR ABDOMINAL TRIGGER POINT INJECTIONS. GIVEN PRESENTING SYMPTOMS AND RESULTS OF PHYSICAL EXAMINATION RECOMMENDED BILATERAL ABDOMINAL TRIGGER POINT INJECTIONS WITH POST PROCEDURAL FOLLOW-UP. PATIENT HAS EXPRESSED UNDERSTANDING OF AND WAS IN AGREEMENT WITH TREATMENT PLAN. GIVEN TIME TO ASK QUESTIONS AND EXPRESS CONCERNS. CLINICAL NOTES: PREPROCEDURE AND PROCEDURE INFORMATION PRINTED AND PROVIDED TO PATIENT. PATIENT VERBALIZED AN UNDERSTANDING. TREV CUPL MA. PROCEDURE CODES [id number] ESTABILISHED PATIENT [facility] CHARGE DISPOSITION & COMMUNICATION FOLLOW UP POSTPROCEDURE (REASON: BILATERAL ABDOMINAL TRIGGER POINT INJECTIONS) ELECTRONICALLY SIGNED BY GRAY ROAHC ON 04/24/2021 AT 08:54 AM EDT DISCLAIMER : THIS IS A VISIT SUMMARY EXTRACTED FROM THE [employer] CHART. IT IS NOT A COPY OF THE [employer] PROGRESS NOTE. MAIKOL
== END ==
LOC: M PAIN 08:30
PROVIDERS: ATTEND Family Medicine
DX: M79.18 Myalgia, other site (principal); G43.909 Migraine, unspecified, not intractable, without status migrainosus; K21.9 Gastro-esophageal reflux disease without esophagitis; F41.9 Anxiety disorder, unspecified; K58.9 Irritable bowel syndrome, unspecified; F32.9 Major depressive disorder, single episode, unspecified; D64.9 Anemia, unspecified; E78.2 Mixed hyperlipidemia; E55.9 Vitamin D deficiency, unspecified; M72.2 Plantar fascial fibromatosis; F17.210 Nicotine dependence, cigarettes, uncomplicated; Z79.899 Other long term (current) drug therapy; Z88.8 Allergy status to other drugs, medicaments and biological substances

== ENCOUNTER → 2021-05-15 | Outpatient (CLI) | payer OTHER | LOC: M LABSMTC 09:46 | PROVIDERS: ATTEND Anesthesiology | DX: Z01.812 Encounter for preprocedural laboratory examination (principal); Z20.822 Contact with and (suspected) exposure to COVID-19 ==

== ENCOUNTER → 2021-05-20 | Outpatient (CLI) | payer OTHER ==
[~2021-05-20] MED LIST changes: +BUPIVACAINE HCL 0.25% 10ML VIAL As Ordered ONE; +BUPIVACAINE HCL 0.25% 30ML VIAL As Ordered ONE; +NORCO, ANEXSIA 5/325MG TABLET (HYDROcodone/ACETAMINOPHEN) As Ordered ONE; +TRIAMCINOLONE ACETONIDE SUSP 40 MG/ML VIAL (J3301) As Ordered ONE; +diazePAM 5MG TABLET As Ordered ONE
--- NOTE | 2021-05-22 03:12 | ECWPNPC ---
PATIENT NAME: KAUSHIK BENNETT : 1960 GENDER: FEMALE VISIT DATE: 05/20/2021 DISCHARGE DATE: 05/20/21 1015 VISIT LOCKED DATE TIME: PHYSICIAN: REBEL PURCELL MD PHYSICIAN PAGER NO: ACTIVE RESOURCE: REBEL PURCELL MD REASON FOR APPOINTMENT 1. TRIGGER POINT INJECTIONS BILATERAL ABDOMINAL HISTORY OF PRESENT ILLNESS GENERAL: -. FALL RISK SCREENING: SCREENING : NO FALLS REPORTED IN THE LAST YEAR. PAIN SCREENING: PATIENT HAS A COMPLAINT OF ACUTE OR CHRONIC PAIN :YES LOCATION OF PAIN:ABDOMEN INTENSITY OF PAIN (SCALE OF 1 TO 10):5 WHAT DOES YOUR PAIN FEEL LIKE:CONTINOUS, SHARP, OTHER PRESSURE DURATION:CONTINOUS PAIN IS INCREASED BY:ACTIVITIES, OTHERS LIFTING PAIN IS DECREASED BY:USE OF PAIN MEDICATIONS NURSING NOTE: -. PAIN CENTER INTAKE QUESTIONS: DO YOU HAVE A HISTORY OF MRSA? :NO DO YOU TAKE A BLOOD THINNERS? :NO DO YOU HAVE ANY BLEEDING DISORDERS? :NO ANY NEW NUMBNESS OR WEAKNESS IN YOUR LEGS OR ARMS? :YES LEFT ARM ANY PACEMAKER,DEFIBRILLATOR, OR DORSAL COLUMN STIMULATOR? :NO DO YOU HAVE ANY RASHES OR OPEN SORES? :NO ARE YOU ALLERGIC TO IV DYE? :NO ARE YOU DIABETIC? :NO ANY NEW PROBLEMS WITH YOUR MEDICATIONS? :NO HAVE YOU RECEIVED A VACCINE IN THE PAST 30 DAYS? :NO DO YOU PLAN TO RECEIVE A VACCINE IN THE NEXT 21 DAYS? :NO DO YOU TAKE ANY IMMUNOSUPPRESSIVE MEDICATIONS? :NO ANY HISTORY OF SEIZURES? :NO ANY HISTORY OF CARDIAC ISSUES OR EVENTS? :NO DO YOU HAVE ANY KIDNEY OR LIVER DISEASE? :NO DO YOU HAVE SLEEP APNEA? :NO ANY RECENT HEAD INJURY? :NO DO YOU HAVE ANY NEW INFECTIONS? :NO IS THERE A CHANCE YOU COULD BE ? :NO ARE YOU BREAST FEEDING? :NO WHEN DID YOU LAST EAT? : 05/19/2021 1800 WHEN DID YOU LAST DRINK? : 05/20/2021 0600 WHAT DID YOU LAST DRINK? : WATER NAME OF PERSON DRIVING YOU HOME? : JESUS DO YOU HAVE ANY OTHER QUESTIONS OR CONCERNS? : YES CURRENT MEDICATIONS TAKING KLONOPIN 2 MG TABLET 1 TAB ORALLY TWICE DAILY, NOTES: 05/20/2021 0600 TAKING HYDROXYZINE HCL 50 MG TABLET 1 TABLET NEEDED ORALLY EVERY 6 HRS TAKING TRAZODONE HCL 100 MG TABLET 2 TABLET AT BEDTIME ORALLY DAILY AT BEDTIME TAKING MULTI VITAMIN - TABLET 1 TABLET ORALLY ONCE A DAY, NOTES: 05/20/2021 0600 TAKING COLACE 100 MG CAPSULE 1 CAPSULE NEEDED ORALLY DAILY TAKING GABAPENTIN 100 MG CAPSULE 1 CAPSULE ORALLY THREE TIMES DAILY TAKING CALCIUM + D3 600-200 MG-UNIT TABLET 1 TAB ORALLY DAILY WITH MEAL TAKING PRAVASTATIN SODIUM 40 MG TABLET 1 TABLET ORALLY ONCE A DAY TAKING PROTONIX 40 MG TABLET DELAYED RELEASE 1 TAB ORALLY TWICE DAILY, NOTES: 05/20/2021 0600 TAKING ZOLOFT 100 MG TABLET 1 TABLET ORALLY ONCE A DAY, NOTES: 05/20/2021 0600 NOT-TAKING ZOLOFT 100 MG TABLET [address] LITTEL ORALLY ONCE A DAY NOT-TAKING FIBERCON 625 MG TABLET 1 TABLET ORALLY DAILY NEEDED NOT-TAKING VITAMIN D 2000 UNIT CAPSULE 1 CAPSULE WITH MEAL ORALLY ONCE A DAY NOT-TAKING ESTRACE 0.1 MG/GM CREAM 2 GRAMS VAGINAL ONCE A DAY, NOTES: INSERT 2 GRAMS IN VAGINA AT NIGHT FOR 2 WEEKS THEN 1 GRAM VAGINALLY 2-3 TIMES PER WEEK. NOT-TAKING NICORETTE 2 MG GUM 1 PIECE NEEDED MOUTH/THROAT 24 TIME(S) A DAY NOT-TAKING NICOTINE 21 MG/24HR PATCH 24 HOUR 1 PATCH TO SKIN TRANSDERMAL ONCE A DAY NOT-TAKING ESCITALOPRAM OXALATE 10 MG TABLET 1 TABLET ORALLY ONCE A DAY MEDICATION LIST REVIEWED AND RECONCILED WITH THE PATIENT PAST MEDICAL HISTORY HEADACHES/ MIGRAINES ESOPHAGEAL REFLUX ANXIETY IBS DEPRESSION, [facility]EASE ANEMIA MIXED HYPERLIPIDEMIA VITAMIN D DEFICIENCY PLANTAR FASCIITIS SMOKER CERVICAL DDD - NCOG OA HIP AND BACK - NCOG BRAIN ANEURYSM - [facility] PILMONARY NODULE - [facility] ALLERGIES VIIBRYD (FOR ALLERGY USE ONLY): CONFUSION,ANXIETY - ALLERGY ATORVASTATIN CALCIUM: CONSTIPATION, HEADACHES - SIDE EFFECTS CHANTIX: ANXIETY - SIDE EFFECTS SOCIAL HISTORY GENERAL: TOBACCO USE ARE YOU A:CURRENT SMOKER HOW OFTEN DO YOU SMOKE CIGARETTES?EVERY DAY HOW SOON AFTER YOU WAKE UP DO YOU SMOKE YOUR FIRST CIGARETTE?6-30 MIN HOW MANY CIGARETTES A DAY DO YOU SMOKE?6-10 ARE YOU INTERESTED IN QUITTING?NOT READY TO QUIT PATIENT COUNSELED ON THE DANGERS OF TOBACCO USE AND URGED TO QUIT:10/19/2019 COUNSELED THE PATIENT ON SMOKING EFFECTS, EDUCATION SLECBYUU07/01/2021 SMOKING CESSATION INFORMATION GIVEN10/19/2019 LATEX QUESTIONNAIRE LATEX ALLERGY : HAVE YOU EVER DEVELOPED ANY TYPE OF REACTION AFTER HANDLING LATEX PRODUCTS SUCH RUBBER GLOVES, CONDOMS, DIAPHRAGMS, BALLOONS, SOCKS, OR UNDERWEAR?NO LATEX ALLERGY : HAVE YOU EVER DEVELOPED ANY TYPE OF REACTION DURING OR AFTER DENTAL APPOINTMENT, VAGINAL/RECTAL EXAMINATION, SURGICAL PROCEDURE, OR ANY OTHER EXPOSURE?NO DATE ASKED : 04/23/2021 LATEX RISK : HAVE YOU EVER HAD ANY DIFFICULTY BREATHING OR HIVES AFTER EATING OR HANDLING ANY FRUITS, OR VEGETABLES; SUCH KIWI, BANANAS, STONE FRUITS, OR CHESTNUTSNO LATEX RISK : DO YOU HAVE A PREVIOUS PERSONAL HISTORY OF MORE THAN NINE SURGERIES, SPINA BIFIDA, OR REPEATED CATHERIZATIONS? YES - PLEASE INDICATE : > 9 SURGERIES LATEX RISK : ARE YOU FREQUENTLY EXPOSED TO LATEX PRODUCTS IN YOUR OCCUPATION?NO ALCOHOL USE: NO. ALCOHOL SCREENING DID YOU HAVE A DRINK CONTAINING ALCOHOL IN THE PAST YEAR?YES HOW OFTEN DID YOU HAVE SIX OR MORE DRINKS ON ONE OCCASION IN THE PAST YEAR?NEVER (0 POINTS) HOW MANY DRINKS DID YOU HAVE ON A TYPICAL DAY WHEN YOU WERE DRINKING IN THE PAST YEAR?1 OR 2 (0 POINTS) HOW OFTEN DID YOU HAVE A DRINK CONTAINING ALCOHOL IN THE PAST YEAR?MONTHLY OR LESS (1 POINT) POINTS1 INTERPRETATIONNEGATIVE RECREATIONAL DRUG USE DENIES. CAFFEINE CAFFEINE USE?YES HOW OFTEN AND HOW MUCH? 4 CUPS COFFEE AND DECAF SODA SEXUAL HX HAD SEX IN THE LAST 12 MONTHS (VAGINAL, ORAL, OR ANAL)?YES WITHMEN ONLY HAVE YOU EVER HAD AN STD?NO HIV / HEP-C SCREENING HIV TEST OFFERED TO PATIENT:YES DATE OFFERED:05/23/2020 TEST ACCEPTED:YES HEP-C TEST OFFERED TO PATIENT:YES DATE OFFERED:05/23/2020 TEST ACCEPTED:YES BROCHURE PROVIDED TO PATIENTNO YAZIDI [id number] [employer] LANG[employer] LANGUAGES SPOKEN:LUXEMBOURGER EDUCATION LEVEL OF EDUCATION:HIGH SCHOOL LEARNING BARRIERS / SPECIAL NEEDS CHANGE FROM LAST VISIT?NO BARRIERS TO LEARNING?NO HEARING IMPAIRED?NO VISION IMPAIRED?YES COGNITIVELY IMPAIRED?NO :CORRECTIVE LENSES READINESS TO LEARN?YES LEARNING PREFERENCES?YES :TAPES/VIDEOS, BOOKLETS, HANDOUTS LEARNING CAPABILITIES PRESENT?YES EMOTIONAL BARRIERS?NO ANXIETY AND DEPRESSION SPECIAL DEVICES?NO FORESTRY ADVISER NEEDED?NO DOMESTIC VIOLENCE DENIES. OCCUPATION: HOME CARE, WORKING A DAY AND A NIGHT JOB.. DIET: REG ,HIGH FIBER, REDUCING CALORIES. EXERCISE: NO REGULAR EXERCISE. MARITAL STATUS: . OTHERS AT HOME: SPOUSE, ONE SON STILL AT HOME. VITAL SIGNS WT 138.8 LBS, HT 64 IN, BMI 23.82 INDEX, BP 127/60 MM HG, HR 89 /MIN, RR 18 /MIN, TEMP 97.2 F, OXYGEN SAT % 100%, SAFE IN ENV? (Y/N) YES, NA INITIALS AW 0835, REVIEWED BY: Aimee OCHOA, RN. EXAMINATION GENERAL: THE PATIENT IS ALERT, ORIENTED TIMES THREE AND COOPERATIVE. LUNGS ARE CLEAR TO AUSCULTATION. HEART SHOWS REGULAR RHYTHM, NO MURMURS AND NO GALLOPS. ASSESSMENTS MYALGIA, OTHER SITE - M79.18 (PRIMARY) TREATMENT MYALGIA, OTHER SITE COMPLETION OF PROCEDURAL VISIT WHEN MEETS CRITERIAABELARDOKIMBERLYROXAYDEN 05/20/2021 10:16:44 AM > 1015 CRITERIA MET MEDICATION: VALIUM TAB 5MG ORALLY (DIAZEPAM)EUGENIEWALTER 05/20/2021 8:58:19 AM > VERIFIED LEIGH,AYDEN 05/20/2021 9:08:53 AM > 0905 ADMINISTERED MED: PAIN NORCO TABLET 5MG/325MG ORALLY HYDROCODONE/ACETAMINOPHENDEYONASWALTER 05/20/2021 8:59:10 AM > VERIFIED LEIGHAYDEN 05/20/2021 9:09:18 AM > 0905 ADMINISTERED OTHERS NOTES: PAT DONE 05/14/21. EM. PROCEDURES PAIN NURSING RECORD PROCEDURE IN ROOM 0830, PHYSICIAN IN ROOM 0957, START 0958, FINISH 1005, PHYSICIAN OUT OF ROOM 1005, OUT OF ROOM 1015, ECG N/A, PATIENT SHIELDED N/A, SAFETY STRAP N/A, PREP ALCOHOL DR. PURCELL, DRESSING TEGADERM Carlie OCHOA RN LOC: LEIGH,AYDEN 05/20/2021 0955 AM > , 1. ALERT, ORIENTED RESP: LEIGH,AYDEN 05/20/2021 0955 AM >, 1. REGULAR, NO DYSPNEA COLOR: LEIGH,AYDEN 05/20/2021 0955 AM >, 1. PINK SKIN: LEIGHAYDEN 05/20/2021 0955 AM >, 1. WARM, DRY POSITION: LEIGH,AYDEN 05/20/2021 0955 AM >, , 2. SUPINE VITALS: 05/20/2021 0925 126/58-86-18-98% 05/20/2021 1012 112/57-60-18-97% NOTES N. GABRIELA RN COMPLETION OF PROCEDURE APPOINTMENT: POST PAIN 0, DRESSING SITE DRY AND INTACT BILATERAL ABDOMEN, IV N/A, GAIT STEADY, TEACHING COMPLETED, PATIENT ACKNOWLEDGES UNDERSTANDING YES PATIENT AND VERBALIZE UNDERSTANDING OF POST PROCEDURE INSTRUCTIONS REVIEWED, PROCEDURE APPOINTMENT COMPLETED AT 1016 BY: Carlie OCHOA RN PN TRIGGER POINT INJECTION WITH STEROIDS PRE PROCEDURE DIAGNOSIS 1. MYALGIA 2. PAIN AT BILATERAL ABDOMEN AREA POST PROCEDURE DIAGNOSIS 1. MYALGIA 2. PAIN AT BILATERAL ABDOMEN AREA PROCEDURE TRIGGER POINT INJECTION AT BILATERAL ABDOMEN AREA SURGEON DR. REBEL PURCELL ENGINE OILER NONE ANESTHESIA LOCAL PRE PROCEDURE NOTE THE PATIENT HAS A HISTORY OF CHRONIC PAIN AT THE RIGHT AND LEFT ABDOMEN AREA. I EVALUATED THE PATIENT AND REVIEWED THE CHART. THERE IS EVIDENCE OF BANDS OF TISSUE WITH RESTRICTION OF MOVEMENT AND PRESENCE OF TRIGGER POINT AT THE RIGHT AND LEFT ABDOMEN AREA. I WENT OVER THE RISKS, ALTERNATIVES, AND BENEFITS ASSOCIATED WITH THIS PROCEDURE. THE PATIENT WOULD LIKE TO PROCEED AND GIVE CONSENT TO PERFORMED THE PROCEDURE. THE PATIENT DENIES UNEXPLAINABLE WEIGHT LOSS, FEVER, CHILLS, OR NEW CHANGES IN URINARY OR BOWEL CONTROL. THE PATIENT IS COVID-19 NEGATIVE DESCRIPTION OF PROCEDURE THE PATIENT WAS BROUGHT TO THE PROCEDURE ROOM AND PLACED IN THE SUPINE POSITION. THE AREA WAS CLEANED WITH ALCOHOL. THE PROCEDURE WAS DONE USING ASEPTIC STERILE TECHNIQUE. A TIMEOUT WAS PERFORMED WHERE THE CONSENTED SITE WAS VERIFIED WITH EVERYONE IN THE ROOM. USING A 25-GAUGE NEEDLE, TRIGGER POINTS WERE INJECTED AT THE RIGHT AND LEFT ABDOMEN AREA WITH A TOTAL OF 40 ML OF BUPIVACAINE 0.25% AND KENALOG 40 MG. THE MEDICATIONS WERE VERIFIED WITH THE NURSE. THERE WAS NO EVIDENCE OF BLOOD OR PARESTHESIA DURING THE PROCEDURE. THE PATIENT WAS SENT TO THE RECOVERY ROOM. THE PATIENT WAS MOVING THE EXTREMITIES AND DOING WELL. THERE WERE NO COMPLICATIONS DURING THE PROCEDURE. ESTIMATED BLOOD LOSS WAS LESS THAN 5 ML POST PROCEDURE NOTE IF THE PAIN PERSISTS, CONSIDER PERFORMING THE SAME PROCEDURE UNDER ULTRASOUND. THE PROCEDURE DONE WAS DISCUSSED WITH THE PATIENT. THE PATIENT WILL BE SEEN IN A FOLLOW UP IN THE NEXT FEW WEEKS. I AM LOOKING FOR LONG LASTING PAIN RELIEF FOR THE PATIENT WITH THIS INTERVENTION. INSTRUCTIONS WERE GIVEN, QUESTIONS WERE ANSWERED, AND THE PATIENT EXPRESSED UNDERSTANDING AND AGREES WITH THE PLAN. I, DIVYA HENSON, DOCUMENTED THE ABOVE INFORMATION ACTING A SCRIBE FOR DR. PURCELL. I HAVE REVIEWED THE ABOVE DOCUMENT, WRITTEN BY DIVYA HENSON, LMFT, AND I VERIFY THAT IT IS ACCURATE PROCEDURE CODES 40032 INJ TRIGGER POINT 1/2 MUSCL DISPOSITION & COMMUNICATION FOLLOW UP FOLLOW UP WITH [facility] [employer] OFFICER (REASON: POST TRIGGER POINT INJECTIONS BILATERAL ABDOMEN) ELECTRONICALLY SIGNED BY REBEL PURCELL MD, MD ON 05/21/2021 AT 10:51 AM EDT DISCLAIMER : THIS IS A VISIT SUMMARY EXTRACTED FROM THE [email or web address] CHART. IT IS NOT A COPY OF THE [email or web address] PROGRESS NOTE. MAIKOL
== END ==
LOC: M PAIN 08:30
PROVIDERS: ATTEND Anesthesiology
DX: M79.18 Myalgia, other site (principal); G43.909 Migraine, unspecified, not intractable, without status migrainosus; K21.9 Gastro-esophageal reflux disease without esophagitis; F41.9 Anxiety disorder, unspecified; K58.9 Irritable bowel syndrome, unspecified; F32.9 Major depressive disorder, single episode, unspecified; D64.9 Anemia, unspecified; E78.2 Mixed hyperlipidemia; M72.2 Plantar fascial fibromatosis; M50.30 Other cervical disc degeneration, unspecified cervical region; R91.1 Solitary pulmonary nodule; F17.210 Nicotine dependence, cigarettes, uncomplicated; Z79.899 Other long term (current) drug therapy; Z88.8 Allergy status to other drugs, medicaments and biological substances
CPT/HCPCS: 20552; J3301

== ENCOUNTER → 2021-06-03 | Outpatient (CLI) | payer OTHER ==
[~2021-06-03] MED LIST changes: -BUPIVACAINE HCL 0.25% 10ML VIAL As Ordered ONE; -BUPIVACAINE HCL 0.25% 30ML VIAL As Ordered ONE; -NORCO, ANEXSIA 5/325MG TABLET (HYDROcodone/ACETAMINOPHEN) As Ordered ONE; -TRIAMCINOLONE ACETONIDE SUSP 40 MG/ML VIAL (J3301) As Ordered ONE; -diazePAM 5MG TABLET As Ordered ONE
== END ==
LOC: M PAIN 10:15
PROVIDERS: ATTEND Family Medicine
DX: M79.18 Myalgia, other site (principal); G43.909 Migraine, unspecified, not intractable, without status migrainosus; K21.9 Gastro-esophageal reflux disease without esophagitis; E55.9 Vitamin D deficiency, unspecified; F17.210 Nicotine dependence, cigarettes, uncomplicated; Z86.59 Personal history of other mental and behavioral disorders; Z88.8 Allergy status to other drugs, medicaments and biological substances; Z79.899 Other long term (current) drug therapy

== ENCOUNTER → 2021-07-31 | Outpatient (CLI) | payer OTHER ==
--- NOTE | 2021-07-31 08:48 | REP ---
INDICATION: ABN FINDINGS OF LUNG TUTTLE. COMPARISON: Comparison chest CT studies are reviewed from June 08, 2019 and June 07, 2020. TECHNIQUE: Helical scanning is acquired. 3 mm axial images are generated. Coronal and sagittal MPR and coronal MIP images are generated. FINDINGS: Digital preliminary painter spray radiograph is unremarkable. There is minimal linear fibrosis in the lingula at the left lung base unchanged. The previously noted 3 mm noncalcified nodule in the right upper lobe is again seen unchanged, displayed on page 27 of 109 series 301 of today's study. There are other stable pleuroparenchymal and subpleural nodules in the upper lobes bilaterally unchanged from the original CT study of June 08, 2019. No new pulmonary nodule is seen. No lung mass or new infiltrate is appreciated. No pleural or pericardial effusion seen. There is left coronary artery vascular calcification. No mediastinal mass or hilar mass or adenopathy is appreciated. Normal adrenal glands are observed. The there clips in the gallbladder fossa post cholecystectomy. No bony destructive lesion is appreciated. IMPRESSION: Stable chest CT findings. No acute disease. 3 mm noncalcified right upper lobe nodule stable x2 years. <Electronically signed by Nikolai Gray > 07/31/21 [id number]
== END ==
LOC: M RAD 07:46
PROVIDERS: ATTEND Nurse Practitioner Adult Health
DX: R91.8 Other nonspecific abnormal finding of lung field (principal)

== ENCOUNTER → 2021-08-29 | Outpatient (CLI) | payer OTHER ==
--- NOTE | 2021-08-29 12:29 | REPMRS ---
Patient History The patient states she had a clinical breast exam in August 2021. Patient is postmenopausal. No known family history of cancer. Benign excisional biopsy of the left breast, 2001. Benign excisional biopsy of the left breast, 2000. Patient states no breast complaints today. Patient has signed MRS History Sheet. Digital Woman Screen Mammo: August 29, 2021 - Exam #: [id number] Bilateral CC and MLO view(s) were taken. Technologist: Jelena Pride, Technologist Prior study comparison: May 23, 2020, bilateral digital woman screen mammo performed at [facility]. December 20, 2018, bilateral digital mammo screening bilat, performed at [facility]. December 18, 2017, bilateral digital mammo screening bilat, performed at [facility]. FINDINGS: The breast tissue is heterogeneously dense. This may lower the sensitivity of mammography. The Volpara volumetric breast density category is: C. There is a moderate amount of heterogeneously dense fibroglandular tissue which is fairly symmetric. There is no interval development of dominant mass, architectural distortion, or grouped microcalcification typical of malignancy. There has been no change in the appearance of the mammogram from the prior studies. 3-D tomosynthesis shows no additional findings. Assessment: BI-RADS/ACR category 1 mammogram. Negative Mammogram. Recommendation Routine screening mammogram of both breasts in 1 year (for women over age 40). This patient's [facility] Lifetime Breast Cancer RIsk is estimated at 6.4 %. This mammogram was interpreted with the aid of an FDA-approved computer-aided dectection system. Electronically Signed By: Nikolai Gray MD 08/29/21 [id number]
== END ==
LOC: M WHC 11:01
PROVIDERS: ATTEND Advanced Practice Midwife
DX: Z12.31 Encounter for screening mammogram for malignant neoplasm of breast (principal); Z78.0 Asymptomatic menopausal state; Z86.018 Personal history of other benign neoplasm

== ENCOUNTER → 2021-10-07 | Outpatient (CLI) | payer OTHER ==
--- NOTE | 2021-10-07 12:27 | REP ---
INDICATION: RENAL CYST COMPARISON: 11/14/2019 TECHNIQUE: Real time bowie scale ultrasound examination using curved array transducer. FINDINGS: Right kidney is normal in reniform shape and measures 9.9 x 4.0 x 4.4 cm without hydronephrosis, nephrolithiasis, cystic or renal mass lesion. Left kidney is normal in reniform shape and measures 11.0 x 4.8 x 4.6 cm. 7 mm upper pole cortical cyst is identified. No hydronephrosis, nephrolithiasis, further significant cystic or renal mass lesion identified. Bladder is unremarkable. IMPRESSION: 1. Asymmetric atrophy to the right kidney. 2. Subcentimeter left renal cyst. <Electronically signed by Tyree Hernandez > 10/07/21 1134
== END ==
LOC: M RAD 11:17
PROVIDERS: ATTEND Nurse Practitioner Women's Health
DX: Q61.00 Congenital renal cyst, unspecified (principal)

== ENCOUNTER → 2022-01-29 | Outpatient (CLI) | payer OTHER ==
[2022-01-29 15:21] LABS: BASO % 0.4 % (0.0-1.0); EOS # 0.1 10^3/uL (0.0-0.5); EOS % 1.4 % (0.0-3.0); HEMATOCRIT 37.9 % (36.0-47.0); HEMOGLOBIN 12.3 g/dl (12.0-15.5); LYMPH # 2.1 10^3/uL (1.5-5.0); LYMPH % 29.5 % (24.0-44.0); MEAN CORPUSCULAR HEMOGLOBIN 30.4 pg (27.0-33.0); MEAN CORPUSCULAR HGB CONC 32.5 g/dl (32.0-36.5); MEAN CORPUSCULAR VOLUME 93.6 fl (80.0-96.0); MONO # 0.5 10^3/uL (0.0-0.8); MONO % 6.2 % (2.0-8.0); NEUTROPHILS # 4.5 10^3/uL (1.5-8.5); NEUTROPHILS % 62.2 % (36.0-66.0); PLATELET COUNT, AUTOMATED 152 10^3/uL (150-450); RED BLOOD COUNT 4.05 10^6/uL (4.00-5.40); WHITE BLOOD COUNT 7.2 10^3/uL (4.0-10.0)
[2022-01-29 15:54] LABS: ALBUMIN 4.1 GM/DL (3.2-5.2); ALT/SGPT 23 U/L (12-78); BILIRUBIN,TOTAL 0.2 MG/DL (0.2-1.0); BLOOD UREA NITROGEN 14 MG/DL (7-18); CALCIUM LEVEL 9.3 MG/DL (8.8-10.2); CARBON DIOXIDE LEVEL 30 MEQ/L (21-32); CHLORIDE LEVEL 109 MEQ/L (98-107); CHOLESTEROL LEVEL 234 MG/DL (<200); CHOLESTEROL RISK RATIO 5.441 (<5); CREATININE FOR GFR 0.98 MG/DL (0.55-1.30); FREE T4 0.92 NG/DL (0.76-1.46); GLOMERULAR FILTRATION RATE > 60.0 (>45); GLUCOSE, FASTING 100 MG/DL (70-100); HDL CHOLESTEROL 43 MG/DL (>40); LDL CHOLESTEROL 138 MG/DL (<100); NON-HDL-C 191 MG/DL; POTASSIUM SERUM 4.7 MEQ/L (3.5-5.1); SODIUM LEVEL 142 MEQ/L (136-145); THYROID STIMULATING HORMONE 0.866 uIU/ML (0.358-3.740); TOTAL PROTEIN 7.7 GM/DL (6.4-8.2); TRIGLYCERIDES LEVEL 266 MG/DL (<150)
[2022-01-29 15:55] LABS: PTH INTACT 37.3 PG/ML (18.5-88.0); TOTAL 25(OH) VITAMIN D 24.7 NG/ML (30.0-100.0)
== END ==
LOC: M PLALAB 12:18
PROVIDERS: ATTEND Physician Assistant Medical
DX: E55.9 Vitamin D deficiency, unspecified (principal)

== ENCOUNTER → 2022-08-13 | Outpatient (CLI) | payer OTHER | LOC: M PLAIMG 11:58 | PROVIDERS: ATTEND Nurse Practitioner Adult Health | DX: R91.8 Other nonspecific abnormal finding of lung field (principal); F17.218 Nicotine dependence, cigarettes, with other nicotine-induced disorders ==

== ENCOUNTER → 2022-11-03 | Outpatient (CLI) | payer OTHER ==
[2022-11-03 10:38] LABS: BASO % 0.3 % (0.0-1.0); EOS # 0.1 10^3/uL (0.0-0.5); HEMATOCRIT 41.3 % (36.0-47.0); HEMOGLOBIN 13.1 g/dl (12.0-15.5); LYMPH # 1.7 10^3/uL (1.5-5.0); LYMPH % 14.6 % (24.0-44.0); MEAN CORPUSCULAR HEMOGLOBIN 30.1 pg (27.0-33.0); MEAN CORPUSCULAR HGB CONC 31.7 g/dl (32.0-36.5); MEAN CORPUSCULAR VOLUME 94.9 fl (80.0-96.0); MONO # 0.6 10^3/uL (0.0-0.8); MONO % 5.5 % (2.0-8.0); NEUTROPHILS # 8.9 10^3/uL (1.5-8.5); NEUTROPHILS % 78.4 % (36.0-66.0); PLATELET COUNT, AUTOMATED 147 10^3/uL (150-450); RED BLOOD COUNT 4.35 10^6/uL (4.00-5.40); WHITE BLOOD COUNT 11.3 10^3/uL (4.0-10.0)
[2022-11-03 11:07] LABS: THYROID STIMULATING HORMONE 1.069 uIU/ML (0.55-4.78)
[2022-11-03 11:08] LABS: MAGNESIUM LEVEL 1.9 MG/DL (1.8-2.4); TOTAL 25(OH) VITAMIN D 33.3 NG/ML (20.0-100.0)
[2022-11-03 11:10] LABS: ALBUMIN 4.1 G/DL (3.2-5.2); ALKALINE PHOSPHATASE 53 U/L (46-116); ALT/SGPT 19 U/L (7.0-40); AST/SGOT 17 U/L (<34); BILIRUBIN,TOTAL 0.3 MG/DL (0.3-1.2); BLOOD UREA NITROGEN 14 MG/DL (9-23); CARBON DIOXIDE LEVEL 28 MMOL/L (20-31); CHLORIDE LEVEL 108 MMOL/L (98-107); CREATININE FOR GFR 0.81 MG/DL (0.55-1.30); GLOMERULAR FILTRATION RATE > 60.0 (>45); GLUCOSE, FASTING 97 MG/DL (74-106); POTASSIUM SERUM 4.4 MMOL/L (3.5-5.1); SODIUM LEVEL 143 MMOL/L (136-145); TOTAL IRON BINDING CAPACITY 338 UG/DL (250-425); TOTAL PROTEIN 7.3 G/DL (5.7-8.2)
[2022-11-03 11:11] LABS: IRON (FE) 111 UG/DL (50-170); PERCENT SATURATION 32.8 % (13.2-45.0)
== END ==
LOC: M PLALAB 07:25
PROVIDERS: ATTEND Physician Assistant
DX: R51.9 Headache, unspecified (principal); R53.83 Other fatigue; F17.210 Nicotine dependence, cigarettes, uncomplicated; I72.9 Aneurysm of unspecified site

== ENCOUNTER → 2022-11-18 | Outpatient (CLI) | payer OTHER | LOC: M WHC 08:50 | PROVIDERS: ATTEND Physician Assistant | DX: Z53.9 Procedure and treatment not carried out, unspecified reason (principal) ==

== ENCOUNTER → 2022-11-18 | Outpatient (CLI) | payer OTHER | LOC: M WHC 09:25 | PROVIDERS: ATTEND Physician Assistant | DX: R19.00 Intra-abdominal and pelvic swelling, mass and lump, unspecified site (principal); K42.9 Umbilical hernia without obstruction or gangrene ==

== ENCOUNTER → 2022-11-21 | Outpatient (CLI) | payer OTHER | LOC: M WHC 11:11 | PROVIDERS: ATTEND Physician Assistant | DX: Z12.31 Encounter for screening mammogram for malignant neoplasm of breast (principal) ==

== ENCOUNTER → 2022-12-16 | Outpatient (CLI) | payer BC ==
[~2022-12-16] MED LIST changes: +GASTROGRAFIN SOLUTION 30ML As Ordered ONE; +ISOVUE-370 76% 100ML VIAL As Ordered ONE
== END ==
LOC: M RAD 10:40
PROVIDERS: ATTEND Physician Assistant
DX: K56.7 Ileus, unspecified (principal); R10.84 Generalized abdominal pain; K45.0 Other specified abdominal hernia with obstruction, without gangrene; K76.89 Other specified diseases of liver

== ENCOUNTER → 2023-01-05 | Outpatient (CLI) | payer BC ==
[~2023-01-05] MED LIST changes: -GASTROGRAFIN SOLUTION 30ML As Ordered ONE; -ISOVUE-370 76% 100ML VIAL As Ordered ONE
== END ==
LOC: M PLAIMG 08:50
PROVIDERS: ATTEND Physician Assistant
DX: R51.9 Headache, unspecified (principal); I72.9 Aneurysm of unspecified site

== ENCOUNTER → 2023-05-13 | Outpatient (CLI) | payer BC | LOC: M WHC 09:56 | PROVIDERS: ATTEND Physician Assistant Medical | DX: N63.32 Unspecified lump in axillary tail of the left breast (principal) | CPT/HCPCS: 76642; 77065; G0279 ==

== ENCOUNTER 2023-08-26 10:16 | Emergency (ER) | payer BC ==
[~2023-08-26] VITALS: Ht 162.6 cm; Wt 67.7 kg
[2023-08-26 10:19] VITALS: TEMP 98
[2023-08-26 11:38] LABS: BASO % 0.2 % (0.0-1.0); EOS # 0.1 10^3/uL (0.0-0.5); EOS % 0.8 % (0.0-3.0); HEMATOCRIT 37.3 % (36.0-47.0); HEMOGLOBIN 12.3 g/dl (12.0-15.5); LYMPH # 1.5 10^3/uL (1.5-5.0); MEAN CORPUSCULAR HEMOGLOBIN 30.4 pg (27.0-33.0); MEAN CORPUSCULAR VOLUME 92.3 fl (80.0-96.0); MONO # 0.4 10^3/uL (0.0-0.8); MONO % 5.1 % (2.0-8.0); NEUTROPHILS # 6.3 10^3/uL (1.5-8.5); NEUTROPHILS % 75.4 % (36.0-66.0); PLATELET COUNT, AUTOMATED 166 10^3/uL (150-450); RED BLOOD COUNT 4.04 10^6/uL (4.00-5.40); WHITE BLOOD COUNT 8.3 10^3/uL (4.0-10.0)
[2023-08-26 11:40] LABS: INR 0.98; PROTHROMBIN TIME 12.7 SECONDS (12.5-14.5)
[2023-08-26 12:00] LABS: LIPASE 38 U/L (12-53)
[2023-08-26 12:01] LABS: CK-MB VALUE MASS < 1.0 NG/ML (<3.6)
[2023-08-26 12:03] LABS: ALBUMIN 4.1 G/DL (3.2-5.2); ALKALINE PHOSPHATASE 60 U/L (46-116); ALT/SGPT 29 U/L (7.0-40); AST/SGOT 20 U/L (<34); BILIRUBIN,DIRECT < 0.1 MG/DL (<0.4); BILIRUBIN,TOTAL 0.2 MG/DL (0.3-1.2); BLOOD UREA NITROGEN 10 MG/DL (9-23); CALCIUM LEVEL 9.1 MG/DL (8.3-10.6); CARBON DIOXIDE LEVEL 27 MMOL/L (20-31); CHLORIDE LEVEL 110 MMOL/L (98-107); CREATININE FOR GFR 0.78 MG/DL (0.55-1.30); GLOMERULAR FILTRATION RATE > 60.0 (>45); GLUCOSE, FASTING 123 MG/DL (74-106); POTASSIUM SERUM 3.5 MMOL/L (3.5-5.1); SODIUM LEVEL 142 MMOL/L (136-145); TOTAL PROTEIN 7.5 G/DL (5.7-8.2)
[2023-08-26 12:04] LABS: FREE T4 1.08 NG/DL (0.89-1.76); THYROID STIMULATING HORMONE 1.453 uIU/ML (0.55-4.78)
[2023-08-26 12:08] LABS: CPK CREATINE PHOSPHOKINASE 101 U/L (34-145); MB/CK RELATIVE INDEX 0.99 (< OR =4)
[2023-08-26] MEDS ORDERED: ISOVUE-370 76% 100ML VIAL As Ordered ONE (12:27)
[2023-08-26 13:00] VITALS: BP 127/59
[2023-08-26 13:03] LABS: CK-MB VALUE MASS < 1.0 NG/ML (<3.6)
[2023-08-26 13:04] LABS: CPK CREATINE PHOSPHOKINASE 91 U/L (34-145); MAGNESIUM LEVEL 2.1 MG/DL (1.8-2.4); MB/CK RELATIVE INDEX 1.09 (< OR =4)
[2023-08-26] MEDS ORDERED: HOLTER MONITOR XX (13:14)
[2023-08-26 13:16] VITALS: O2SAT 97
== END 2023-08-26 13:30 | disposition home or self-care (01) ==
LOC: M ED 10:16
DX: R00.2 Palpitations (principal); R20.2 Paresthesia of skin; R07.9 Chest pain, unspecified; E78.5 Hyperlipidemia, unspecified; K21.9 Gastro-esophageal reflux disease without esophagitis; F41.9 Anxiety disorder, unspecified; F33.9 Major depressive disorder, recurrent, unspecified; F17.210 Nicotine dependence, cigarettes, uncomplicated; Z88.8 Allergy status to other drugs, medicaments and biological substances; Z79.899 Other long term (current) drug therapy
CPT/HCPCS: 70450; 71045; 71275; 72125; 80048; 80076; 82550; 82553; 83690; 83735; 84439; 84443; 84484; 85025; 85610; 93005; 93041; 94760; 99285; Q9967

== ENCOUNTER → 2023-08-27 | Outpatient (CLI) | payer BC ==
[~2023-08-27] MED LIST changes: +HOLTER MONITOR XX
== END ==
LOC: M EKG 09:34
PROVIDERS: ATTEND Emergency Medicine
DX: R00.2 Palpitations (principal)

== ENCOUNTER → 2023-09-04 | Outpatient (CLI) | payer BC ==
[2023-09-04 10:14] LABS: BASO % 0.3 % (0.0-1.0); EOS # 0.2 10^3/uL (0.0-0.5); EOS % 2.8 % (0.0-3.0); HEMOGLOBIN 12.3 g/dl (12.0-15.5); LYMPH # 1.4 10^3/uL (1.5-5.0); LYMPH % 22.7 % (24.0-44.0); MEAN CORPUSCULAR HEMOGLOBIN 30.3 pg (27.0-33.0); MEAN CORPUSCULAR HGB CONC 32.4 g/dl (32.0-36.5); MEAN CORPUSCULAR VOLUME 93.6 fl (80.0-96.0); MONO # 0.5 10^3/uL (0.0-0.8); MONO % 8.2 % (2.0-8.0); NEUTROPHILS % 65.7 % (36.0-66.0); PLATELET COUNT, AUTOMATED 155 10^3/uL (150-450); RED BLOOD COUNT 4.06 10^6/uL (4.00-5.40); WHITE BLOOD COUNT 6.1 10^3/uL (4.0-10.0)
[2023-09-04 10:30] LABS: PROTHROMBIN TIME 12.9 SECONDS (12.5-14.5)
[2023-09-04 10:31] LABS: PARTIAL THROMBOPLASTIN TIME 30.7 SECONDS (24.8-34.2)
[2023-09-04 10:48] LABS: ALBUMIN 3.8 G/DL (3.2-5.2); ALKALINE PHOSPHATASE 60 U/L (46-116); ALT/SGPT 21 U/L (7.0-40); AST/SGOT 16 U/L (<34); BILIRUBIN,TOTAL 0.3 MG/DL (0.3-1.2); BLOOD UREA NITROGEN 11 MG/DL (9-23); CALCIUM LEVEL 9.1 MG/DL (8.3-10.6); CARBON DIOXIDE LEVEL 29 MMOL/L (20-31); CHLORIDE LEVEL 110 MMOL/L (98-107); CHOLESTEROL LEVEL 173 MG/DL (<200); CHOLESTEROL RISK RATIO 4.44 (<5); GLOMERULAR FILTRATION RATE > 60.0 (>45); GLUCOSE, FASTING 125 MG/DL (74-106); HDL CHOLESTEROL 38.9 MG/DL (>40); LDL CHOLESTEROL 97.9 MG/DL (<100); NON-HDL-C 134.1 MG/DL; POTASSIUM SERUM 4.3 MMOL/L (3.5-5.1); SODIUM LEVEL 143 MMOL/L (136-145); TOTAL PROTEIN 7.2 G/DL (5.7-8.2); TRIGLYCERIDES LEVEL 181 MG/DL (<150)
[2023-09-04 10:49] LABS: FREE T4 0.96 NG/DL (0.89-1.76); TOTAL 25(OH) VITAMIN D 33.1 NG/ML (20.0-100.0); VITAMIN B12 LEVEL 473 PG/ML (211-911)
== END ==
LOC: M PLALAB 07:10
PROVIDERS: ATTEND Physician Assistant
DX: I27.20 Pulmonary hypertension, unspecified (principal); E55.9 Vitamin D deficiency, unspecified; R20.2 Paresthesia of skin; H11.31 Conjunctival hemorrhage, right eye; E78.2 Mixed hyperlipidemia

== ENCOUNTER → 2023-09-24 | Outpatient (CLI) | payer BC | LOC: M WHC 13:54 | PROVIDERS: ATTEND Physician Assistant | DX: M85.851 Other specified disorders of bone density and structure, right thigh (principal); M85.852 Other specified disorders of bone density and structure, left thigh ==

== ENCOUNTER → 2023-10-01 | Outpatient (CLI) | payer BC | LOC: M CARPUL 12:59 | PROVIDERS: ATTEND Physician Assistant | DX: R00.2 Palpitations (principal); I35.0 Nonrheumatic aortic (valve) stenosis ==

== ENCOUNTER → 2023-12-11 | Outpatient (REF) | payer BC | LOC: M LAB REF 12:28 | PROVIDERS: ATTEND Nurse Practitioner Family | DX: R30.0 Dysuria (principal) ==

== ENCOUNTER → 2024-04-07 | Outpatient (CLI) | payer MEDICARE ==
[2024-04-07 12:51] LABS: BASO % 0.4 % (0.0-1.0); EOS # 0.2 10^3/uL (0.0-0.5); EOS % 2.2 % (0.0-3.0); HEMATOCRIT 39.1 % (36.0-47.0); HEMOGLOBIN 12.6 g/dl (12.0-15.5); LYMPH # 2.1 10^3/uL (1.5-5.0); LYMPH % 29.2 % (24.0-44.0); MEAN CORPUSCULAR HEMOGLOBIN 30.4 pg (27.0-33.0); MEAN CORPUSCULAR HGB CONC 32.2 g/dl (32.0-36.5); MEAN CORPUSCULAR VOLUME 94.4 fl (80.0-96.0); MONO # 0.5 10^3/uL (0.0-0.8); MONO % 6.5 % (2.0-8.0); NEUTROPHILS # 4.4 10^3/uL (1.5-8.5); NEUTROPHILS % 61.4 % (36.0-66.0); PLATELET COUNT, AUTOMATED 171 10^3/uL (150-450); RED BLOOD COUNT 4.14 10^6/uL (4.00-5.40); WHITE BLOOD COUNT 7.2 10^3/uL (4.0-10.0)
[2024-04-07 12:55] LABS: ALKALINE PHOSPHATASE 59 U/L (46-116); ALT/SGPT 20 U/L (7.0-40); AST/SGOT 16 U/L (<34); BILIRUBIN,TOTAL 0.2 MG/DL (0.3-1.2); BLOOD UREA NITROGEN 13 MG/DL (9-23); CALCIUM LEVEL 9.3 MG/DL (8.3-10.6); CARBON DIOXIDE LEVEL 30 MMOL/L (20-31); CHLORIDE LEVEL 108 MMOL/L (98-107); CHOLESTEROL LEVEL 223 MG/DL (<200); CREATININE FOR GFR 0.85 MG/DL (0.55-1.30); GLOMERULAR FILTRATION RATE > 60.0 (>45); GLUCOSE, FASTING 109 MG/DL (74-106); HDL CHOLESTEROL 40.5 MG/DL (>40); LDL CHOLESTEROL 136.1 MG/DL (<100); NON-HDL-C 182.5 MG/DL; POTASSIUM SERUM 4.3 MMOL/L (3.5-5.1); SODIUM LEVEL 142 MMOL/L (136-145); TOTAL PROTEIN 7.3 G/DL (5.7-8.2); TRIGLYCERIDES LEVEL 232 MG/DL (<150)
[2024-04-07 12:56] LABS: FREE T4 1.09 NG/DL (0.89-1.76); THYROID STIMULATING HORMONE 1.718 uIU/ML (0.55-4.78)
[2024-04-07 12:57] LABS: TOTAL 25(OH) VITAMIN D 30.2 NG/ML (20.0-100.0)
[2024-04-07 14:43] LABS: HEMOGLOBIN A1c 5.7 % (4.0-6.0)
== END ==
LOC: M PLALAB 07:09
PROVIDERS: ATTEND Physician Assistant
DX: R00.0 Tachycardia, unspecified (principal); E78.2 Mixed hyperlipidemia; E55.9 Vitamin D deficiency, unspecified; I27.20 Pulmonary hypertension, unspecified; Z13.1 Encounter for screening for diabetes mellitus

== ENCOUNTER 2024-04-24 06:28 | Emergency (ER) | payer MEDICARE ==
[~2024-04-24] VITALS: Ht 162.6 cm; Wt 65.8 kg
[2024-04-24] MEDS: KETOROLAC 30 MG/ML 1ML VIAL IV ONE (09:02)
[2024-04-24 09:16] LABS: BASO % 0.3 % (0.0-1.0); EOS # 0.1 10^3/uL (0.0-0.5); EOS % 1.2 % (0.0-3.0); HEMATOCRIT 39.6 % (36.0-47.0); HEMOGLOBIN 13.2 g/dl (12.0-15.5); LYMPH # 1.6 10^3/uL (1.5-5.0); MEAN CORPUSCULAR HEMOGLOBIN 31.1 pg (27.0-33.0); MEAN CORPUSCULAR HGB CONC 33.3 g/dl (32.0-36.5); MEAN CORPUSCULAR VOLUME 93.2 fl (80.0-96.0); MONO # 0.5 10^3/uL (0.0-0.8); MONO % 6.2 % (2.0-8.0); NEUTROPHILS # 5.2 10^3/uL (1.5-8.5); PLATELET COUNT, AUTOMATED 183 10^3/uL (150-450); RED BLOOD COUNT 4.25 10^6/uL (4.00-5.40); WHITE BLOOD COUNT 7.5 10^3/uL (4.0-10.0)
[2024-04-24 09:49] LABS: LIPASE 37 U/L (12-53)
[2024-04-24 09:51] LABS: ALKALINE PHOSPHATASE 60 U/L (46-116); ALT/SGPT 20 U/L (7.0-40); AST/SGOT 11 U/L (<34); BILIRUBIN,DIRECT < 0.1 MG/DL (<0.4); BILIRUBIN,TOTAL 0.3 MG/DL (0.3-1.2); TOTAL PROTEIN 7.4 G/DL (5.7-8.2)
[2024-04-24 11:44] VITALS: BP 119/59; TEMP 97.7; O2SAT 98
[2024-04-24] MEDS ORDERED: METH-1164 PO (12:04)
[2024-04-24] MEDS ORDERED: NAPR-837 PO (12:04)
[2024-04-24] MEDS ORDERED: LIDO5DIS41 TD (12:04)
[2024-04-24] MEDS: LIDOCAINE 5% (LIDODERM) PATCH TD ONE (12:19)
== END 2024-04-24 12:27 | disposition home or self-care (01) ==
LOC: M ED 06:28
DX: R10.9 Unspecified abdominal pain (principal); M62.838 Other muscle spasm; Z87.442 Personal history of urinary calculi; Z88.8 Allergy status to other drugs, medicaments and biological substances; Z79.899 Other long term (current) drug therapy
CPT/HCPCS: 74176; 80047; 80076; 81001; 83690; 85025; 96374; 99284; J1885

== ENCOUNTER → 2024-05-16 | Outpatient (CLI) | payer MEDICARE ==
[~2024-05-16] MED LIST changes: +LIDO5DIS41 TD; +METH-1164 PO; +NAPR-837 PO
== END ==
LOC: M WHC 12:11
PROVIDERS: ATTEND Physician Assistant
DX: Z12.31 Encounter for screening mammogram for malignant neoplasm of breast (principal); R92.333 Mammographic heterogeneous density, bilateral breasts

== ENCOUNTER → 2024-10-19 | Outpatient (CLI) | payer MEDICARE | LOC: M RAD 07:21 | PROVIDERS: ATTEND Nurse Practitioner Adult Health | DX: Z12.2 Encounter for screening for malignant neoplasm of respiratory organs (principal); F17.218 Nicotine dependence, cigarettes, with other nicotine-induced disorders ==

== ENCOUNTER → 2024-11-29 | Outpatient (REF) | payer MEDICARE | LOC: M SFHCPLAZ 21:28 | PROVIDERS: ATTEND Family Medicine | DX: I51.5 Myocardial degeneration (principal); E78.2 Mixed hyperlipidemia ==

== ENCOUNTER → 2024-12-07 | Outpatient (CLI) | payer MEDICARE ==
[2024-12-07 11:10] LABS: ALBUMIN 3.9 G/DL (3.2-5.2); ALKALINE PHOSPHATASE 50 U/L (35-104); ALT/SGPT 23 U/L (7.0-40); AST/SGOT 14 U/L (<34); BILIRUBIN,TOTAL 0.2 MG/DL (0.3-1.2); BLOOD UREA NITROGEN 17 MG/DL (9-23); CARBON DIOXIDE LEVEL 29 MMOL/L (20-31); CHLORIDE LEVEL 108 MMOL/L (98-107); CHOLESTEROL LEVEL 171 MG/DL (<200); CHOLESTEROL RISK RATIO 4.77 (<5); CREATININE FOR GFR 0.85 MG/DL (0.55-1.30); GLOMERULAR FILTRATION RATE > 60.0 (>45); GLUCOSE, FASTING 104 MG/DL (74-106); HDL CHOLESTEROL 35.8 MG/DL (>40); LDL CHOLESTEROL 100.4 MG/DL (<100); NON-HDL-C 135.2 MG/DL; POTASSIUM SERUM 4.4 MMOL/L (3.5-5.1); SODIUM LEVEL 143 MMOL/L (136-145); TRIGLYCERIDES LEVEL 174 MG/DL (<150)
== END ==
LOC: M PLALAB 07:13
DX: I51.5 Myocardial degeneration (principal); E78.2 Mixed hyperlipidemia; Z71.89 Other specified counseling

== ENCOUNTER → 2025-02-20 | Outpatient (REF) | payer MEDICARE ==
[~2025-02-20] MED LIST changes: +CLON0.5T2 PO; +THERTAB52 PO; +ZOLO100T PO
== END ==
LOC: M SFHCPLAZ 15:33
PROVIDERS: ATTEND Student in an Organized Health Care Education/Training Program
DX: Z53.21 Procedure and treatment not carried out due to patient leaving prior to being seen by health care provider (principal); Z79.899 Other long term (current) drug therapy; E55.9 Vitamin D deficiency, unspecified; E78.2 Mixed hyperlipidemia; F34.1 Dysthymic disorder

== ENCOUNTER → 2025-03-06 | Outpatient (CLI) | payer MEDICARE ==
[2025-03-06 10:32] LABS: BASO % 0.5 % (0.0-1.0); EOS # 0.1 10^3/uL (0.0-0.5); EOS % 1.8 % (0.0-3.0); HEMOGLOBIN 12.7 g/dl (12.0-15.5); LYMPH # 1.9 10^3/uL (1.5-5.0); LYMPH % 25.3 % (24.0-44.0); MEAN CORPUSCULAR HEMOGLOBIN 30.3 pg (27.0-33.0); MEAN CORPUSCULAR HGB CONC 32.6 g/dl (32.0-36.5); MEAN CORPUSCULAR VOLUME 93.1 fl (80.0-96.0); MONO # 0.5 10^3/uL (0.0-0.8); MONO % 6.2 % (2.0-8.0); NEUTROPHILS # 4.9 10^3/uL (1.5-8.5); NEUTROPHILS % 65.8 % (36.0-66.0); PLATELET COUNT, AUTOMATED 153 10^3/uL (150-450); RED BLOOD COUNT 4.19 10^6/uL (4.00-5.40); WHITE BLOOD COUNT 7.4 10^3/uL (4.0-10.0)
[2025-03-06 10:37] LABS: THYROID STIMULATING HORMONE 1.143 uIU/ML (0.55-4.78)
[2025-03-06 10:38] LABS: ALBUMIN 3.9 G/DL (3.2-5.2); BILIRUBIN,TOTAL 0.3 MG/DL (0.3-1.2); CHOLESTEROL RISK RATIO 3.96 (<5); CREATININE FOR GFR 0.78 MG/DL (0.55-1.30); GLOMERULAR FILTRATION RATE 83.2 (>45); HDL CHOLESTEROL 38.3 MG/DL (>40); LDL CHOLESTEROL 76.1 MG/DL (<100); NON-HDL-C 113.7 MG/DL; POTASSIUM SERUM 4.6 MMOL/L (3.5-5.1); TOTAL 25(OH) VITAMIN D 33.7 NG/ML (20.0-100.0); TOTAL PROTEIN 7.2 G/DL (5.7-8.2)
[2025-03-06 10:39] LABS: FOLATE 22.5 NG/ML (>5.4)
== END ==
LOC: M PLALAB 07:18
DX: F34.1 Dysthymic disorder (principal); Z79.899 Other long term (current) drug therapy; E55.9 Vitamin D deficiency, unspecified; E78.2 Mixed hyperlipidemia

== ENCOUNTER → 2025-03-22 | Outpatient (CLI) | payer MEDICARE | LOC: M WHC 13:41 | PROVIDERS: ATTEND Family Medicine | DX: Z12.31 Encounter for screening mammogram for malignant neoplasm of breast (principal); Z53.9 Procedure and treatment not carried out, unspecified reason ==

== ENCOUNTER → 2025-05-29 | Outpatient (CLI) | payer MEDICARE ==
[~2025-05-29] MED LIST changes: +LIDO1ADH93 TD; -LIDO5DIS41 TD; -PRAV40TA2 PO; +PRAV40TA85 PO; +ROSU20TA86 PO
== END ==
LOC: M WHC 07:44
PROVIDERS: ATTEND Nurse Practitioner Family
DX: Z12.31 Encounter for screening mammogram for malignant neoplasm of breast (principal); R92.323 Mammographic fibroglandular density, bilateral breasts

== ENCOUNTER → 2025-05-30 | Outpatient (CLI) | payer MEDICARE ==
[2025-05-30 11:21] LABS: CHOLESTEROL LEVEL 158.0 MG/DL (<200); CHOLESTEROL RISK RATIO 3.69 (<5); LDL CHOLESTEROL 78.0 MG/DL (<100); NON-HDL-C 115.2 MG/DL; TRIGLYCERIDES LEVEL 186.0 MG/DL (<150)
== END ==
LOC: M PLALAB 07:27
PROVIDERS: ATTEND Nurse Practitioner Family
DX: I25.10 Atherosclerotic heart disease of native coronary artery without angina pectoris (principal)

== ENCOUNTER → 2025-09-25 | Outpatient (CLI) | payer MEDICARE | LOC: M WHC 07:43 | PROVIDERS: ATTEND Nurse Practitioner Family | DX: Z13.820 Encounter for screening for osteoporosis (principal); Z12.31 Encounter for screening mammogram for malignant neoplasm of breast; M81.0 Age-related osteoporosis without current pathological fracture ==

== ENCOUNTER → 2025-10-26 | Outpatient (CLI) | payer MEDICARE | LOC: M RAD 10:26 | PROVIDERS: ATTEND Nurse Practitioner Family | DX: R07.81 Pleurodynia (principal) ==

== ENCOUNTER → 2025-11-20 | Outpatient (CLI) | payer MEDICARE | LOC: M RAD 07:33 | PROVIDERS: ATTEND Nurse Practitioner Adult Health | DX: Z12.2 Encounter for screening for malignant neoplasm of respiratory organs (principal); F17.210 Nicotine dependence, cigarettes, uncomplicated; R91.8 Other nonspecific abnormal finding of lung field ==